=== PATIENT | female | born 2000 | race Caucasian/White ===

== ENCOUNTER 2020-04-18 19:05 | Emergency (ER) | payer BC ==
[2020-04-18 20:05] LABS: Absolute Lymphocytes (CBC) 2.8 K/uL (0.7-4.9); Basophils % 0.6 % (0-1.3); Hematocrit 36.5 % (36.0-45.0); Lymphocytes % 33.7 % (15.3-44.8); MPV 8.1 fL (7.6-11.3); RBC Red Blood Cell Count 4.46 M/uL (3.86-4.86)
[2020-04-18] MEDS ORDERED: ONDANSETRON 4 MG/2 ML VIAL ONE (20:13)
[2020-04-18] MEDS ORDERED: NA CHLORIDE 0.9% 1,000 ML ONE (20:13)
[2020-04-18 20:23] LABS: Albumin 3.8 g/dL (3.4-5.0); Bilirubin Direct 0.1 mg/dL (0-0.2); Bilirubin Total 0.3 mg/dL (0.2-1.0); Potassium 3.6 mmol/L (3.5-5.1); Protein, Total 7.4 g/dL (6.4-8.2)
[2020-04-18] MEDS ORDERED: KETOROLAC 30 MG/ML INJ ONE (20:29)
[2020-04-18 21:22] LABS: Urine Blood TRACE (NEG); Urine Glucose NEGATIVE (NEG); Urine Protein NEGATIVE (NEG); Urine Specific Gravity 1.025 (1.005-1.030)
--- NOTE | 2020-04-18 21:54 | ER ---
Nurse's Notes [facility] Name: Arianne Montanez Age: 20 yrs Sex: Female : 2000 Arrival Date: 04/18/2020 Time: 19:08 Bed 8 Private MD: Diagnosis: Nausea and vomiting;Headache Presentation: 04/18 19:28 Chief complaint: Patient states: N/V, MAYER, weakness, dizziness since yesterday. No known ll1 fever. Coronavirus screen: Client denies travel out of the [place] in the last 14 days. At this time, the client does not indicate any symptoms associated with coronavirus-19. Ebola Screen: Patient denies travel to an Ebola-affected area in the 21 days before illness onset. Initial Sepsis Screen: Does the patient meet any 2 criteria? No. Patient's initial sepsis screen is negative. Risk Assessment: Do you want to hurt yourself or someone else? Patient reports no desire to harm self or others. Onset of symptoms was April 17, 2020. 19:28 Method Of Arrival: Ambulatory ll1 19:28 Acuity: HENRI 3 ll1 21:53 Initial Sepsis Screen: Does the patient have a suspected source of infection? No. rv Patient's initial sepsis screen is negative. 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 - Social history:: Smoking status: Patient denies any tobacco usage or history of. Patient/guardian denies using alcohol, street drugs. Screenin:52 Abuse screen: Denies threats or abuse. Denies injuries from another. Nutritional rv screening: No deficits noted. Tuberculosis screening: No symptoms or risk factors identified. Fall Risk None identified. Assessment: 21:00 General: Appears comfortable, Behavior is calm, cooperative. rv 21:00 Pain: Complains of pain in back. Neuro: Level of Consciousness is awake, alert, obeys rv commands, Oriented to person, place, time, situation. Cardiovascular: Patient's skin is warm and dry. Respiratory: Airway is patent. GI: Abdomen is flat, non-distended, Reports nausea. Derm: Skin is intact. 21:51 Reassessment: still complaining of pain. updated on the test results. referred to Dr jeremy Dodd. new orders received. Morphine given as ordered. 22:30 Reassessment: Patient states feeling better. Patient states symptoms have improved. rv Pain: Denies pain. Neuro: Level of Consciousness is awake, alert, obeys commands, Oriented to person, place, time, situation. Respiratory: Airway is patent. Vital Signs: 19:28 BP 136 / 96; Pulse 82; Resp 17; Temp 98.7; Pulse Ox 96% ; Pain 7/10; ll1 20:55 BP 108 / 66; Pulse 68; Resp 18; Pulse Ox 100% on R/A; mg2 21:53 BP 119 / 76; Pulse 76; Resp 16; Pulse Ox 98% on R/A; rv 22:31 BP 110 / 70; Pulse 78; Resp 17; Temp 98.5; Pulse Ox 99% on R/A; rv ED Course: 19:08 Patient arrived in ED. cl3 19:30 Triage completed. ll1 19:32 Arm band placed on Patient placed in an exam room, on a stretcher. ll1 19:35 Rustam Dodd MD is Attending Physician. tw4 19:40 Darren Jordan RN is Primary Nurse. rv 19:55 Inserted saline lock: 20 gauge in left antecubital area, using aseptic technique. Blood rv collected. 19:55 Initial lab(s) drawn, by ne, sent to lab. rv 21:53 Patient has correct armband on for positive identification. Pulse ox on. NIBP on. rv 22:31 No provider procedures requiring assistance completed. IV discontinued, intact, rv bleeding controlled, No redness/swelling at site. Pressure dressing applied. Administered Medications: 20:05 Drug: NS 0.9% 1000 ml Route: IV; Rate: 1 bolus; Site: left antecubital; rv 21:50 Follow up: IV Status: Completed infusion; IV Intake: 1000ml rv 20:05 Drug: Zofran (Ondansetron) 4 mg Route: IVP; Site: left antecubital; rv 21:50 Follow up: Response: No adverse reaction rv 20:21 Drug: TORadol 30 mg Route: IVP; Site: left antecubital; rv 21:50 Follow up: Response: No adverse reaction; Pain is unchanged, physician notified rv 21:50 Drug: morphine 4 mg {Note: rass 0.} Route: IVP; Site: left antecubital; rv 22:30 Follow up: Response: No adverse reaction; Marked relief of symptoms; Pain is decreased; rv RASS: Alert and Calm (0) Intake: 21:50 IV: 1000ml; Total: 1000ml. rv Outcome: 21:53 Discharge ordered by . tw4 22:31 Discharged to home ambulatory. rv 22:31 Condition: improved 22:31 Discharge instructions given to patient, Instructed on discharge instructions, follow up and referral plans. medication usage, Demonstrated understanding of instructions, follow-up care, medications, Prescriptions given X 3. 22:31 Patient left the ED. rv Signatures: Rustam Dodd MD MD tw4 Levi Bolton, RN RN mg2 Darren Jordan RN RN rv Kathie Aquino cl3 Tera Aquino RN RN ll1
--- NOTE | 2020-04-18 21:54 | EDPHYS ---
Physician Documentation [facility] Name: Arianne Montanez Age: 20 yrs Sex: Female : 2000 Arrival Date: 04/18/2020 Time: 19:08 Bed 8 Private MD: ED Physician Rustam Dodd HPI: 04/19 06:36 This 20 yrs old Female presents to ER via Ambulatory with complaints of tw4 Nausea, Weakness. 06:36 The patient presents to the emergency department with nausea, vomiting. Onset: The tw4 symptoms/episode began/occurred today. Possible causes:. Severity of symptoms: At their worst the symptoms were moderate in the emergency department the symptoms are unchanged. The patient has not experienced similar symptoms in the past. 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 - Social history:: Smoking status: Patient denies any tobacco usage or history of. Patient/guardian denies using alcohol, street drugs. ROS: 04/19 06:36 Constitutional: Negative for fever, chills, and weight loss, Eyes: Negative for injury, tw4 pain, redness, and discharge, Cardiovascular: Negative for chest pain, palpitations, and edema, Respiratory: Negative for shortness of breath, cough, wheezing, and pleuritic chest pain, Back: Negative for injury and pain, MS/Extremity: Negative for injury and deformity, Skin: Negative for injury, rash, and discoloration, Neuro: Negative for headache, weakness, numbness, tingling, and seizure. Abdomen/GI: Positive for nausea and vomiting, nausea, vomiting, Negative for abdominal pain, diarrhea, constipation, abdominal cramps, abdominal distension, anorexia, dysphagia, hematemesis, black/tarry stool, rectal pain, rectal bleeding. Exam: 06:36 Constitutional: This is a well developed, well nourished patient who is awake, alert, tw4 and in no acute distress. Head/Face: Normocephalic, atraumatic. Chest/axilla: Normal chest wall appearance and motion. Nontender with no deformity. No lesions are appreciated. Cardiovascular: Regular rate and rhythm with a normal S1 and S2. No gallops, murmurs, or rubs. Normal PMI, no JVD. No pulse deficits. Respiratory: Lungs have equal breath sounds bilaterally, clear to auscultation and percussion. No rales, rhonchi or wheezes noted. No increased work of breathing, no retractions or nasal flaring. Abdomen/GI: Soft, non-tender, with normal bowel sounds. No distension or tympany. No guarding or rebound. No evidence of tenderness throughout. Skin: Warm, dry with normal turgor. Normal color with no rashes, no lesions, and no evidence of cellulitis. MS/ Extremity: Pulses equal, no cyanosis. Neurovascular intact. Full, normal range of motion. Neuro: Awake and alert, GCS 15, oriented to person, place, time, and situation. Cranial nerves II-XII grossly intact. Motor strength 5/5 in all extremities. Sensory grossly intact. Cerebellar exam normal. Normal gait. Vital Signs: 04/18 19:28 BP 136 / 96; Pulse 82; Resp 17; Temp 98.7; Pulse Ox 96% ; Pain 7/10; ll1 20:55 BP 108 / 66; Pulse 68; Resp 18; Pulse Ox 100% on R/A; mg2 21:53 BP 119 / 76; Pulse 76; Resp 16; Pulse Ox 98% on R/A; rv 22:31 BP 110 / 70; Pulse 78; Resp 17; Temp 98.5; Pulse Ox 99% on R/A; rv MDM: 19:35 Patient medically screened. tw4 04/19 06:36 Differential diagnosis: Nonspecific abd pain. Data reviewed: vital signs, nurses notes. tw4 Data reviewed: lab test result(s), cardiac enzymes, electrolytes, hepatic panel. Data interpreted: Pulse oximetry: Interpretation: normal. Counseling: I had a detailed discussion with the patient and/or guardian regarding: the historical points, exam findings, and any diagnostic results supporting the discharge/admit diagnosis. Medication response: Zofran relieved the patient's nausea. Response to treatment: and as a result, I will discharge patient. Special discussion: I discussed with the patient/guardian in detail that at this point there is no indication for admission to the hospital. It is understood, however, that if the symptoms persist or worsen the patient needs to return immediately for re-evaluation. 04/18 19:36 Order name: Basic Metabolic Panel; Complete Time: 21:50 04/18 21:50 Interpretation: Normal except: CL 109; GFR 87. 04/18 19:36 Order name: CBC with Diff; Complete Time: 21:50 04/18 21:50 Interpretation: Normal except: RDW 15.8. 04/18 19:36 Order name: Hepatic Function; Complete Time: 21:50 04/18 21:50 Interpretation: Normal except: GLOB 3.6. 04/18 19:36 Order name: Lipase; Complete Time: 21:50 04/18 21:50 Interpretation: Within normal limits: LIP 136. 04/18 20:01 Order name: Urine --Ancillary (enter results); Complete Time: 21:50 tt3 04/18 21:50 Interpretation: Within normal limits: URINE PREG NEG. 04/18 20:01 Order name: Urine Dipstick--Ancillary (enter results); Complete Time: 21:50 tt3 04/18 21:50 Interpretation: Normal except: UBLD TRACE. 04/18 19:36 Order name: IV Saline Lock; Complete Time: 20:09 04/18 19:36 Order name: Labs collected and sent; Complete Time: 20:09 04/18 19:36 Order name: Urine Dipstick-Ancillary (obtain specimen); Complete Time: 20:09 04/18 19:36 Order name: Urine Test (obtain specimen); Complete Time: 20:09 Administered Medications: 04/18 20:05 Drug: NS 0.9% 1000 ml Route: IV; Rate: 1 bolus; Site: left antecubital; rv 21:50 Follow up: IV Status: Completed infusion; IV Intake: 1000ml rv 20:05 Drug: Zofran (Ondansetron) 4 mg Route: IVP; Site: left antecubital; rv 21:50 Follow up: Response: No adverse reaction rv 20:21 Drug: TORadol 30 mg Route: IVP; Site: left antecubital; rv 21:50 Follow up: Response: No adverse reaction; Pain is unchanged, physician notified rv 21:50 Drug: morphine 4 mg {Note: rass 0.} Route: IVP; Site: left antecubital; rv 22:30 Follow up: Response: No adverse reaction; Marked relief of symptoms; Pain is decreased; rv RASS: Alert and Calm (0) Disposition: 04/18/20 21:53 Discharged to Home. Impression: Nausea and vomiting, Headache. - Condition is Stable. - Discharge Instructions: General Headache Without Cause, Pain Without a Known Cause, Weakness, Nausea and Vomiting, Adult, [id number], Migraine Headache, [id number]. - Prescriptions for Zofran 4 mg Oral Tablet - take 1 tablet by ORAL route every 12 hours As needed; 20 tablet. Fiorinal 50- 325-40 mg Oral Capsule - take 1 capsule by ORAL route every 4 hours As needed - not to exceed 6 capsules per day; 20 capsule. Ibuprofen 800 mg Oral Tablet - take 1 tablet by ORAL route every 8 hours As needed take with food; 30 tablet. - Medication Reconciliation Form, Thank You Letter, Antibiotic Education, Prescription Opioid Use form. - Follow up: Private Physician; When: Upon discharge from the Emergency Department; Reason: Recheck today's complaints, Continuance of care, Re-evaluation by your physician. - Problem is new. - Symptoms have improved. Signatures: Dispatcher [employer] EDPR Rustam Dodd MD MD tw4 Darren Jordan RN RN rv Tera Aquino RN RN ll1 Corrections: (The following items were deleted from the chart) 21:57 21:53 04/18/2020 21:53 Discharged to Home. Impression: Nausea and vomiting. Condition tw4 is Stable. Forms are Medication Reconciliation Form, Thank You Letter, Antibiotic Education, Prescription Opioid Use. Follow up: Private Physician; When: Upon discharge from the Emergency Department; Reason: Recheck today's complaints, Continuance of care, Re-evaluation by your physician. Problem is new. Symptoms have improved. tw4 22:31 21:57 04/18/2020 21:53 Discharged to Home. Impression: Nausea and vomiting; Headache. rv Condition is Stable. Discharge Instructions: Weakness, Nausea and Vomiting, Adult, [id number]. Prescriptions for Zofran 4 mg Oral Tablet - take 1 tablet by ORAL route every 12 hours As needed; 20 tablet. and Forms are Medication Reconciliation Form, Thank You Letter, Antibiotic Education, Prescription Opioid Use. Follow up: Private Physician; When: Upon discharge from the Emergency Department; Reason: Recheck today's complaints, Continuance of care, Re-evaluation by your physician. Problem is new. Symptoms have improved. tw4
[2020-04-18] MEDS ORDERED: MORPHINE 4 MG/ML SYR ONE (21:59)
[2020-04-18 22:58] VITALS: BP 110/70; TEMP 98.5; O2SAT 99
== END 2020-04-18 22:31 | disposition home or self-care (01) ==
LOC: ER 19:05
DX: R11.2 Nausea with vomiting, unspecified (principal); R51 Headache; Z88.0 Allergy status to penicillin; Z88.2 Allergy status to sulfonamides; Z88.3 Allergy status to other anti-infective agents
CPT/HCPCS: 96361; 85025; 80048; 36415; 81025; 80076; 81003; 83690; 96375; 96374; 99284; J7030; J2405

== ENCOUNTER 2020-09-27 02:02 | Emergency (ER) | payer BC ==
--- OUTSIDE RECORDS SUMMARY | 2020-09-27 02:06 | XMS REPORT | Continuity of Care Document ---
:[address] [facility] t Address [address] [place] [address] Care Team Providers Name Role Phone Asked, Pcp Primary Care Physician Unavailable Doctor Unassigned, Name Attending Clinician Unavailable Pob, Lab Main Attending Clinician Unavailable Sammy NORMAN Attending Clinician Payers Payer Name Policy Type Policy Number Effective Date Expiration Date S ource Problems Condition Condition Condition Status Onset Resolution Last Treating Co mments Source Name Details Category Date Date Treatment Clinician Date Colitis Colitis Problem [facility] Chronic Chronic Problem Active [facility] back pain back pain [facility] Depression Depression Problem [facility] Scoliosis Scoliosis Problem Active [facility] (and (and [facility] - kyphoscoli kyphoscoli Me moria osis), osis), l idiopathic idiopathic Ou tpati ent Clinics Migraine Migraine Problem Active [facility] headache headache [facility] without without [facility] aura aura l [facility] Acne Acne Problem Active [facility] vulgaris vulgaris [facility] High risk High risk Problem Active [facility] heterosexu heterosexu Joan kes - al al [facility] behavior behavior l [facility] Iron Iron Problem Active [facility] deficiency deficiency Joan kes - anemia, anemia, Memoria unspecifie unspecifie l d iron d iron Outpati deficiency deficiency en t anemia anemia Clinics type type Mixed Mixed Problem Active [facility] hyperlipid hyperlipid Joan kes - emia emia [facility] Allergies, Adverse Reactions, Alerts Allergy Allergy Status Severity Reaction(s) Onset Inactive Treating Comm ents Source Name Type Date Date Clinician Penicill DA Active [facility] [place] [facility] [place] [facility] [place] acetamin [facility] ophen 04-22 [facility] [place] predniso [facility] ne 04-22 [facility] [place] sulfamet [place] [facility] [place] [facility] hoxazole 04-22 [facility] [place] trimetho [facility] prim 04-22 [facility] [place] vancomyc DA Active [place] [facility] in 04-22 [facility] [place] Acetamin Propensi Active Hives [place] op[place] ty to 04-04 Methodi deine adverse 00:00: st reaction 00 s to drug Penicill DA Active [facility] ins 03-26 Clear 00:00: Rai 00 [facility] sulfamet DA Active [place] [facility] hoxazole 03-26 Clear 00:00: Rai 00 [facility] trimetho DA Active [place] [facility] prim 03-26 Clear 00:00: Rai 00 [facility] [place] [address] [facility] in 03-26 Clear 00:00: Rai 00 [facility] Vancomyc Propensi Active Hives Other [place] ty to 03-23 reaction( Methodi adverse 00:00: s): st reaction 00 Nausea s to and/or drug Vomiting Sulfamet Propensi Active Rash [place] hoxazole ty to 8-18 Methodi (Bulk) adverse 00:00: st reaction 00 s to drug No Known DA Active [facility] Allergie 5-19 [place] s 00:00: Orthope 00 dic Hospita l Penicill Propensi Active Hives, [place] in ty to Shortness Of 3-05 Meth rowena adverse Breath 00:00: st reaction 00 s to drug penicill Adverse Active anaphylaxis [facility] in Reaction [facility] Family History Family Member Diagnosis Comments Start Date Stop Date Source [facility] Social [facility] Social Habit Start Date Stop Date Quantity Comments Source Sex Assigned At [facility] ethodi Tobacco use and 2019-04-04 2019-04-04 Never used [facility] ethodist exposure 00:00:00 00:00:00 Alcohol intake 2019-04-04 2019-04-04 Current [facility] thodist 00:00:00 00:00:00 non-drinker of alcohol (finding) Smoking Status Start Date Stop Date Source Never smoker [place] [facility] t Medications Ordered Filled Start Stop Current Ordering Indication Dosage Frequency Signature Comments Components Source Medication Medication Date Date Medication? Clinician (SIG) Name Name Tamiflu Tamiflu Yes Luke [address] [facility] [address] 1-15 [facility] - 00:00: Memoria 00 [facility] diphenhydrA Yes 25mg QD Take 25 mg [facility] 9-07 by mouth Methodi (BENADRYL) 23:15: nightly as s t 25 mg 03 needed for tablet sleep. acetaminoph Yes 325mg Q6H Take 325 H [facility] 9-07 mg by Methodi (TYLENOL) 23:15: mouth st 325 MG 02 every 6 tablet (six) hours as needed for fever. Procedures This patient has no known procedures. Plan of Care Planned Activity Planned Date Details Comments Source Future Scheduled 2020-02-27 INFLUENZA VACCINE [facility] 00:00:00 [code = INFLUENZA VACCINE] Future Scheduled 2019 Screening for [facility] thodist Test 00:00:00 malignant neoplasm of cervix (procedure) [code = 600368696] Future Scheduled 2016-02-03 Hepatitis C [facility] hodist Test 00:00:00 screening (procedure) [code = 868386758] Future Scheduled 2014 CHLAMYDIA SCREENING [place] [facility] 00:00:00 [code = CHLAMYDIA SCREENING] Future Scheduled 2014 COVID-19 VACCINE (1 [place] [facility] 00:00:00 of 2) [code = COVID-19 VACCINE (1 of 2)] Encounters Start End Encounter Admission Attending Care Care Encounter Source Date/Time Date/Time Type Type Clinicians Facility Department ID 2020-09-26 2020-09-26 Orders Doctor ELLIOT [id number] 00:00:00 00:00:00 Only Unassigned, JERALD [id number] [facility] [id number] [id number] [facility] 2020-09-21 2020-09-21 Spanish Lecturer Vikash Valenzuela [facility] [id number] 11:52:07 12:07:07 Visit Lab Blair Dennis [id number] [place] 4.2.7.2.686 Professio [id number] [address] 2020-09-21 2020-09-21 Case Sammy VAGISSELLE [id number] 00:00:00 00:00:00 Management Elba Dennis [id number] [place] 4.2.7.2.686 Professio [id number] formerly [facility] [address] [facility] 2020-09-20 2020-09-20 Office Sammy VAGISSELLE [id number] 14:13:34 15:06:36 Visit Elba Dennis [id number] [place] 4.2.7.2.686 Professio [id number] formerly [facility] 134 [facility] 2019-08-12 2019-08-12 [facility] [id number] 13:22:00 13:22:00 [employer] [facility] ent [facility] 2019-02-26 2019-02-26 [facility] [id number] 10:00:00 10:00:00 [facility] ent [facility] 2019-01-14 2019-01-14 [facility] [id number] 10:00:00 10:00:00 t [employer] - VTM [facility] Outpati ent Clinics 2018-08-04 2018-08-04 [facility] [id number] 14:30:00 14:30:00 t [employer] - VTM [facility] Out[facility] ent Clinics 2018-03-26 2018-03-26 [facility] [id number] 13:45:00 13:45:00 t VendAsta s - VTM [facility] Out[facility] ent Clinics 2018-01-08 2018-01-08 [facility] [id number] 11:30:00 11:30:00 t VendAsta s - VTM [facility] Outpat[facility] ent Clinics 2017-11-25 2017-11-25 [facility] [id number] 13:00:00 13:00:00 t [employer] - VTM [facility] Outpat[facility] ent Clinics 2017-10-14 2017-10-14 [facility] [id number] 11:15:00 11:15:00 t [employer] - VTM [facility] Outpati ent Clinics 2017-10-14 2017-10-14 [facility] [id number] 09:22:00 09:22:00 t [facility] Outpati ent Clinics Results Test Description Test Time Test Comments Results Result Sour e Comments - DUP AB/PEL/SC/LTD 2019-06-24 Patient Name: 22:15:00 LUDWIG APONTE Unit No: [id number] EXAMS: CPT CODE: [id number] DUP AB/PEL/SC/LTD 36333 PROCEDURE: PELVIC ULTRASOUND INDICATION: Left lower quadrant pelvic pain. COMPARISON: 12/02/2018 pelvic ultrasound. TRANSABDOMINAL SCAN: Uterus measures 4.8 x 1.6 x 3.5 cm with obscured endometrial stripe. Neither ovary is visualized. No adnexal masses seen. No free pelvic fluid. TRANSVAGINAL SCAN: Transvaginal exam was performed for better visualization of the pelvic structures. The uterus measures 5.5 x 1.7 x 2.8 cm with endometrial stripe thickness of 0.4 cm. Left ovary appears normal with follicles and measures 1.8 x 2.1 x 1.5 cm. The right ovary appears normal with follicles and measures 3.1 x 2 x 2.1 cm. Expected low-resistance arterial waveforms are documented to each ovary. No adnexal masses are seen. No free pelvic fluid. IMPRESSION: Normal pelvic ultrasound. SL: SG-H at 2215 Reported and signed by: Rojas Galindo MD CC: Franco Swan MD Technologist: Inga Vega RDMS Probe: Trnscrbd D/ (2015) t.SDR.SG9 Orig Print D/T: S: 06/24/2019 (3020) [facility] NAME: FAYLUDWIG Radiology Department PHYS: Kenzie Banda ro [address] : 2000 AGE: 19 SEX: F [place] [address] LOC: MAGGI PHONE #: [phone] EXAM DATE: 06/24/2019 STATUS: REG ER FAX #: [phone] RAD NO: Page 1 Signed Report Patient Name: LUDWIG APONTE Unit No: [id number] EXAMS: CPT CODE: [id number] DUP AB/PEL/SC/LTD 32210 <Continued> [facility] NAME: FAYLUDWIG Radiology Department PHYS: Kenzie Banda ro [address] : 2000 AGE: 19 SEX: F [place] [address] LOC: MAGGI PHONE #: [phone] EXAM DATE: 06/24/2019 STATUS: REG ER FAX #: [phone] RAD NO: Page 2 Signed Report - US TRANSVAGINAL 2019-06-24 Patient Name: W/PELVIS 22:15:00 LUDWIG APONTE Unit No: [id number] EXAMS: CPT CODE: [id number] US TRANSVAGINAL W/PELVIS 93569 PROCEDURE: PELVIC ULTRASOUND INDICATION: Left lower quadrant pelvic pain. COMPARISON: 12/02/2018 pelvic ultrasound. TRANSABDOMINAL SCAN: Uterus measures 4.8 x 1.6 x 3.5 cm with obscured endometrial stripe. Neither ovary is visualized. No adnexal masses seen. No free pelvic fluid. TRANSVAGINAL SCAN: Transvaginal exam was performed for better visualization of the pelvic structures. The uterus measures 5.5 x 1.7 x 2.8 cm with endometrial stripe thickness of 0.4 cm. Left ovary appears normal with follicles and measures 1.8 x 2.1 x 1.5 cm. The right ovary appears normal with follicles and measures 3.1 x 2 x 2.1 cm. Expected low-resistance arterial waveforms are documented to each ovary. No adnexal masses are seen. No free pelvic fluid. IMPRESSION: Normal pelvic ultrasound. SL: SG-H at 2215 Reported and signed by: Rojas Galindo MD CC: Franco Swan MD Technologist: Inga Vega RDMS Probe: [id number] Trnscrbd D/ (2215) t.SDR.SG9 Orig Print D/T: S: 06/24/2019 (2218) [facility] NAME: XAVIERLUDWIG Radiology Department PHYS: Kenzie Banda [address] : 2000 AGE: 19 SEX: F [place], [place] [address] LOC: MAGGI PHONE #: [phone] EXAM DATE: 06/24/2019 STATUS: REG ER FAX #: [phone] RAD NO: Page 1 Signed Report Patient Name: LUDWIG APONTE Unit No: [id number] EXAMS: CPT CODE: [id number] US TRANSVAGINAL W/PELVIS 38160 <Continued> [facility] NAME: FAYLUDIWG Radiology Department PHYS: MARCELLA PerkinseverryKenzie Acosta ro [address] : 2000 AGE: 19 SEX: F [place] [address] LOC: MAGGI PHONE #: [phone] EXAM DATE: 06/24/2019 STATUS: REG ER FAX #: [phone] RAD NO: Page 2 Signed Report - US PELVIS 2019-06-24 Patient Name: COMPLETE 22:15:00 LUDWIG APONTE Unit No: [id number] EXAMS: CPT CODE: [id number] US PELVIS COMPLETE 80367 PROCEDURE: PELVIC ULTRASOUND INDICATION: Left lower quadrant pelvic pain. COMPARISON: 12/02/2018 pelvic ultrasound. TRANSABDOMINAL SCAN: Uterus measures 4.8 x 1.6 x 3.5 cm with obscured endometrial stripe. Neither ovary is visualized. No adnexal masses seen. No free pelvic fluid. TRANSVAGINAL SCAN: Transvaginal exam was performed for better visualization of the pelvic structures. The uterus measures 5.5 x 1.7 x 2.8 cm with endometrial stripe thickness of 0.4 cm. Left ovary appears normal with follicles and measures 1.8 x 2.1 x 1.5 cm. The right ovary appears normal with follicles and measures 3.1 x 2 x 2.1 cm. Expected low-resistance arterial waveforms are documented to each ovary. No adnexal masses are seen. No free pelvic fluid. IMPRESSION: Normal pelvic ultrasound. SL: SG-H at 2215 Reported and signed by: Rojas Galindo MD CC: Franco Swan MD Technologist: Inga Vega RDMS Probe: Trnscrbd D/ (2215) t.SG9 Orig Print D/T: S: 06/24/2019 (2218) [facility] NAME: LUDWIG APONTE Radiology Department PHYS: Kenzie Banda ro [address] : 2000 AGE: 19 SEX: F [place] [address] LOC: MAGGI PHONE #: [phone] EXAM DATE: 06/24/2019 STATUS: REG ER FAX #: [phone] RAD NO: Page 1 Signed Report Patient Name: LUDWIG APONTE Unit No: [id number] EXAMS: CPT CODE: [id number] US PELVIS COMPLETE 73214 <Continued> [facility] NAME: LUDWIG APONTE Radiology Department PHYS: Kenzie Banda [address] : 2000 AGE: 19 SEX: F [place], [place] [address] LOC: MAGGI PHONE #: [phone] EXAM DATE: 06/24/2019 STATUS: REG ER FAX #: [phone] RAD NO: Page 2 Signed Report DRUGS OF ABUSE SCREEN 2019-06-24 22:04:00 Test Item Value Reference Range Interpretation Comme nts UR COCAINE (test code = COCAU) NEGATIVE NEGATIVE DETECTION CUT OFF: 150 ng/mL UR CANNABINOIDS (test code = CANU) NEGATIVE NEGATIVE DETECTION CUT OFF: 50 ng/mL UR AMPHETAMINE (test code = AMPHU) NEGATIVE NEGATIVE DETECTION CUT OFF: 500 ng/mL UR BARBITURATE QUAL (test code = NEGATIVE NEGATIVE DETECTION CUT OFF: 200 ng/mL BARBQLU) UR BENZODIAZEPINE (test code = NEGATIVE NEGATIVE DETECTION CUT OFF: 150 ng/mL BENZU) UR OPIATES QUAL (test code = NEGATIVE NEGATIVE DETECTION CUT OFF: 100 ng/mL OPIAQLU) UR PHENCYCLIDINE (PCP) (test code = NEGATIVE NEGATIVE DETECTION CUT OFF: 25 ng/mL PHENCU) UA RFLX MICR CULT IF [id number] 21:57:00 Test Item Value Reference Range Interpretation Comments UA COLOR (test code = COLU) STRAW YELLOW UA APPEARANCE (test code = CLEAR CLEAR APPU) UA GLUCOSE DIPSTICK (test code NEGATIVE NEG = DGLUU) UA BILIRUBIN DIPSTICK (test NEGATIVE NEG code = BILU) UA KETONE DIPSTICK (test code NEGATIVE NEG = KETU) UA SPECIFIC GRAVITY (test code 1.009 1.001-1.035 N = SGU) UA BLOOD DIPSTICK (test code = NEG NEG SCOTT) UA PH DIPSTICK (test code = 6.0 5-9 ELIN) UA PROTEIN DIPSTICK (test code NEGATIVE NEG = PROU) UA UROBILINIOGEN DIPSTICK NEGATIVE mg/dL NEG (test code = URO) UA NITRITE DIPSTICK (test code NEG NEG = TAY) UA LEUKOCYTE ESTERASE DIPSTICK NEG NEG (test code = LEUU) UA WBC (test code = WBCU) 0-2 #/hpf NONE SEEN UA RBC (test code = RBCU) 0-2 #/hpf NONE SEEN UA EPITHELIAL CELLS (test code RARE #/HPF RARE-FEW = EPIU) UA BACTERIA (test code = BACU) RARE /HPF RARE-FEW Indication for culture: Suprapubic PainUR HCG [id number] 21:55:00 Test Item Value Reference Range Interpretation Comments UR HCG QUAL (test NEGATIVE 1. Very di lute urine code = HCGQLU) specimens, as indicated by a lowspecific g ravity, may not contain rep resentative levels ofhCG. 2 . False negative result s may occur when the levels of hCGare below the sensi tivity level of the test. If is still suspec daniel, a first morningurine sp ecimen should be colle cted 48 hours later and tested. COMPREHENSIVE METABOLIC [id number] 21:46:00 Test Item Value Reference Range Interpretation Comments SODIUM (test code = NA) 141 mEq/L 135-145 N POTASSIUM (test code = K) 3.5 mEq/L 3.5-5.0 N CHLORIDE (test code = CL) 105 mEq/L 100-115 N CARBON DIOXIDE (test code = CO2) 25 mEq/L 22-31 N ANION GAP (test code = GAP) 14.50 10-20 N GLUCOSE (test code = GLU) 78 mg/dL 65-110 N BLOOD UREA NITROGEN (test code = 13 mg/dL 7-18 N BUN) GLOMERULAR FILTRATION RATE (test 106 ml/min >60 N code = GFR) CREATININE (test code = CREAT) 0.7 mg/dL 0.5-1.0 N TOTAL PROTEIN (test code = PROT) 7.4 gm/dL 6.3-8.2 N ALBUMIN (test code = ALB) 4.3 gm/dL 3.4-4.8 N CALCIUM (test code = CA) 9.3 mg/dL 8.4-10.2 N BILIRUBIN TOTAL (test code = BILT) 0.2 mg/dL 0.2-1.0 N SGOT/AST (test code = AST) 14 units/L 15-37 L SGPT/ALT (test code = ALT) 23 units/L 12-78 N ALKALINE PHOSPHATASE TOTAL (test 82 units/L 46-116 N code = ALKP) CBC W/AUTO [id number] 21:41:00 Test Item Value Reference Range Interpretation Comments WHITE BLOOD CELL (test code = WBC) 10.8 K/mm3 6.6-12.1 N RED BLOOD CELL (test code = RBC) 4.59 M/mm3 3.45-5.01 N HEMOGLOBIN (test code = HGB) 12.2 g/dL 10.7-13.9 N HEMATOCRIT (test code = HCT) 39.8 % 32.1-42.1 N MEAN CELL VOLUME (test code = MCV) 87 fL 84.1-94.8 N MEAN CELL HGB (test code = MCH) 26.6 pg 27-35 L MEAN CELL HGB CONCETRATION (test 30.7 gm/dL 32.2-34.1 L code = MCHC) RED CELL DISTRIBUTION WIDTH (test 14.5 % 12.4-16.5 N code = RDW) PLATELET COUNT (test code = PLT) 449 K/mm3 133-385 H IMMATURE PLATELET FRACTION (test 0.0 % 0.0-10.8 N code = IPF) MEAN PLATELET VOLUME (test code = 9.7 fl 9.1-12.7 N MPV) NEUTROPHIL % (test code = NT%) 58.6 % 56.5-79.4 N LYMPHOCYTE % (test code = LY%) 32.1 % 14.3-34.3 N MONOCYTE % (test code = MO%) 7.0 % 5.1-10.4 N EOSINOPHIL % (test code = EO%) 1.6 % 0.1-3.0 N BASOPHIL % (test code = BA%) 0.5 % 0.1-1.0 N NEUTROPHIL # (test code = NT#) 6.4 K/mm3 LYMPHOCYTE # (test code = LY#) 3.5 K/mm3 MONOCYTE # (test code = MO#) 0.8 K/mm3 EOSINOPHIL # (test code = EO#) 0.17 K/mm3 BASOPHIL # (test code = BA#) 0.1 K/mm3 RBC MORPHOLOGY REQUIRED (test code NORMAL NORMAL = RBCM) PLATELET MORPHOLOGY REQUIRED (test NORMAL NORMAL code = PLTMR) - MRI LW JNT W/CONTRAST [id number] 13:59:00 Patient Name: LUDWIG APONTE Unit No: [id number] EXAMS: CPT CODE: [id number] MRI LW JNT W/[place] [address] RIGHT HIP ARTHROGRAM AND MARCAINE INJECTION DIAGNOSIS:No definite abnormality. COMMENT: COMPARISON: No prior exams available. After informed consent was obtained a single-contrast arthrogram was performed with equal parts Isovue-300 and dilute gadolinium by . 0.6 minutes of fluoroscopy time was utilized. The normal recesses were opacified. An AP radiograph was obtained. Subsequently 2 mL of 0.75% Marcaine was injected into the joint. No immediate complications were encountered. MRI OF THE RIGHT HIP POST ARTHROGRAPHY TECHNIQUE: Multiplanar multisequence MR images of the right hip were obtained following intra-articular administration of gadolinium contrast (see separately dictated procedure note for details). Images were then viewed on the PACS workstation in the axial, coronal and sagittal planes. COMPARISON: None available. FINDINGS: Bone: Marrow signal intensity is normal. Cartilage: No focal hyaline cartilage defects are seen. Labrum: The labrum is torn superiorly and anterior superiorly with a 2.2 cm ant erior superior labral cyst. Femoroacetabular Impingement Assessment: Alpha Angle (normal= <55 degrees) : 48 degrees Lateral Center Edge Angle (normal=25-39 degrees): 49 degrees Extraarticular Hip Impingement: No osseous proliferation of the anterior inferior iliac spine. Iliopsoas tendon is unremarkable. No evidence of ischiofemoral impingement. Tendons: Visualized gluteal and hamstring tendons are maintained.Bursitis: No significant trochanteric or iliopsoas bursitis. Muscles: Signal intensityand volume are preserved. [facility] NAME: LUDWIG APONTE [address] [facility] Main PHYS: Anibal Leslie : 2000 AGE: 19 SEX: F [place], [place] [address] LOC: YYULY PHONE #: [phone] EXAM DATE: 04/22/2019 STATUS: REG CLI FAX #: [phone] RAD #: D/C DT PAGE 1 Signed Report (CONTINUED) Patient Name: LUDWIG APONTE Unit No: [id number] EXAMS: CPT CODE: [id number] [place] LW JNT W/[place] [address] <Continued> Other: Partially visualized intrapelvic structures are unremarkable. IMPRESSION: Pincer-type impingement with labral tearing and a labral cyst at 1359 Reported and signed by: Elliott Rajput MD CC: Anibal Cruz MD; Pipo Hare MD Technologist: Joshua Novak(R) Transcribed D/ (9839) t.SHADIL [facility] NAME: LUDWIG APONTE [address] [facility] PHYS: Anibal Leslie : 2000 AGE: 19 SEX: F [place] [address] LOC: Y.RAD PHONE #: [phone] EXAM DATE: 04/22/2019 STATUS: REG CLI FAX #: [phone] RAD #: D/C DT PAGE 2 Signed Report Patient Name: LUDWIG APONTE Unit No: [id number] EXAMS: CPT CODE: [id number] MRI LW JNT W/[place] [address] <Continued> Orig Print D/T: S: 04/22/2019 (6920) [facility] NAME: LUDWIG APONTE [address] [facility] PHYS: Anibal Leslie : 2000 AGE: 19 SEX: F [place] [address] LOC: Y.RAD PHONE #: [phone] EXAM DATE: 04/22/2019 STATUS: REG CLI FAX #: [phone] RAD #: D/C DT PAGE 3 Signed Report- XR ARTHROGRAM HIP W/O AN RT+2019-04-22 13:59:00 Patient Name: LUDWIG APONTE Unit No: [id number] EXAMS: CPT CODE: [id number] XR ARTHROGRAM HIP W/O AN RT+ 27757 RIGHT HIP ARTHROGRAM AND MARCAINE INJECTION DIAGNOSIS:No definite abnormality. COMMENT: COMPARISON: No prior exams available. After informed consent was obtained a single-contrast arthrogram was performed with equal parts Isovue-300 and dilute gadolinium by . 0.6 minutes of fluoroscopy time was utilized. The normal recesses were opacified. An AP radiograph was obtained. Subsequently 2 mL of 0.75% Marcaine was injected into the joint. No immediate complications were encountered. MRI OF THE RIGHT HIP POST ARTHROGRAPHY TECHNIQUE: Multiplanar multisequence MR images of the right hip were obtained following intra- articular administration of gadolinium contrast (see separately dictated procedure note for details). Images were then viewed on the PACS workstation in the axial, coronal and sagittal planes. COMPARISON: None available. FINDINGS: Bone: Marrow signal intensity is normal. Cartilage: No focal hyaline cartilage defects are seen. Labrum: The labrum is torn superiorly and anterior superiorly with a 2.2 cm anterior superior labral cyst. Femoroacetabular Impingement Assessment: Alpha Angle (normal= <55 degrees) : 48 degrees Lateral Center Edge Angle (normal=25-39 degrees): 49 degrees Extraarticular Hip Impingement: No osseous proliferation of the anterior inferior iliac spine. Iliopsoas tendon is unremarkable. No evidence of ischiofemoral impingement. Tendons: Visualized gluteal and hamstring tendons are maintained.Bursitis: No significant trochanteric or iliopsoas bursitis. Muscles: Signal intensityand volume are preserved. [facility] NAME: LUDWIG APONTE [address] [facility] PHYS: Anibal Leslie : 2000 AGE: 19 SEX: F [place], [place] [address] LOC: Y.RAD PHONE #: [phone] EXAM DATE: 04/22/2019 STATUS: REG CLI FAX #: [phone] RAD #: D/C DT PAGE 1 Signed Report (CONTINUED) Patient Name: LUDWIG APONTE Unit No: [id number] EXAMS: CPT CODE: [id number] XR ARTHROGRAM HIP W/O AN RT+ 18858 <Continued> Other: Partially visualized intrapelvic structures are unremarkable. IMPRESSION: Pincer-type impingement with labral tearing and a labral cyst at 1359 Reported and signed by: Elliott Rajput MD CC: Anibal Cruz MD; Pipo Hare MD Technologist: Valencia Kan, RT.(R) Transcribed D/ (2923) t.SDR.JCL [facility] NAME: LUDWIG APONTE [address] [place] [address] PHYS: Anibal Leslie Sherie : 2000 AGE: 19 SEX: F [place] [address] LOC: Y.RAD PHONE #: [phone] EXAM DATE: 04/22/2019 STATUS: REG CLI FAX #: [phone] RAD #: D/C DT PAGE 2 Signed Report Patient Name: LUDWIG APONTE Unit No: [id number] EXAMS: CPT CODE: [id number] XR ARTHROGRAM HIP W/O AN RT+ 65038 <Continued> Orig Print D/T: S: 04/22/2019 (5598) [facility] NAME: LUDWIG APONTE [address] [place] [address] PHYS: Anibal Lesliesharondamar : 2000 AGE: 19 SEX: F [place] [address] LOC: Y.RAD PHONE #: [phone] EXAM DATE: 04/22/2019 STATUS: REG CLI FAX #: [phone] RAD #: D/C DT PAGE 3 Signed ReportAG HLA [id number] 17:10:00 Test Item Value Reference Range Interpretation Comments AG HLA B-27 Negative () HLA-B*27 Negati veB27 allele (test code = interpretation for all loci based HLAB27) on IMGT/HLAdata base version 3.35This test w as developed and its performance characteristics determined by [facility]. It diaz s not been cleared or approvedby [facility] Food and Drug Administration. HLA Lab CLIA ID Number [id number] test was performed using PCR (Polymerase ChainReaction)/ SSOP (Sequence Specific Oligon ucleotide Probes)techniqu e. SBT (Sequence Based Typing) a nd/or SSP(Sequence Specific Primer s) may be used as supplementalmet hods when necessary. Ple ase contact HLA CustomerService at if you have any questions. Director of HLA Laboratory Dr Brett Kaufman, PhDPerformed At: 2Q [facility] [id number] [place], [place] [id number] Angela Mcclure PhD Ph:[phone] - MRI L-SPINE W/O [id number] 08:48:00 Patient Name: LUDWIG APONTE Unit No: [id number] Report Has Been Amended EXAMS: CPT CODE: [id number] MRI L-SPINE W/O CONT 51097 Addendum -04/08/2019 SIGNED 04/08/2019 ADDENDUM: [id number] MRI/MRILSPNWO Addendum: MRI of the lumbar spine dated April 07, 2019 is reviewed. The SI joints are included on this examination. Both the right and left SI joints are normal in appearance. Also diagnosed #6 should read that there is a dextroscoliosis of the lower thoracic and proximal lumbar spine. at 0848 Reported and signed by: Angela Feliciano MD Report MRI OF THE LUMBAR SPINE: DIAGNOSIS: 1. At L1-2, no disc bulge or herniation. No central canal or fora itz stenosis. 2. 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 No central canal or foraminal stenosis. 3. 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 No central canal stenosis. No foraminal stenosis. 4. At L4-5, mild disc degeneration. Is a slight retrolisthesis of L4 and L5. No central canal or foraminal stenosis. 5.At L5-S1, no disc bulge or herniation. No central canal or foraminal stenosis. Mild bilateral facet arthropathy. 6. There is a dextroscoliosis of the proximal thoracic spine. 7. PARTIALLY VISUALIZED MULTISEPTATE CYST IS PRESENT ADJACENT TO THE ANTERIOR ASPECT OF THE RIGHT HIP SUGGESTIVE OF A PERILABRAL CYST POSSIBLY RELATED TO A RIGHT ACETABULAR LABRAL TEAR. THIS IS BEST SEEN ON AXIAL T2-WEIGHTED SEQUENCE IMAGES 45-48 45-48 45-48. THIS MAY BE FURTHER EVALUATED WITH MRI OF THE RIGHT HIP POST ARTHROGRAPHY IF CLINICALLY INDICATED. COMMENT: COMPARISON: No prior exams available. Sagittal T1, T2 and STIR and axial T1 and T2-weighted sequences are obtained of the lumbar spine. [facility] NAME: LUDWIG APONTE [address] [facility] PHYS: Deb Harding MD : 2000 AGE: 19 SEX: F [place] [address] LOC: Y.510 A PHONE #: [phone] EXAM DATE: 04/06/2019 STATUS: DIS IN FAX #: [phone] RAD #: D/C DT 04/07/2019 PAGE 1 Signed Report (CONTINUED) Patient Name: LUDWIG APONTE Unit No: [id number] Report Has Been Amended EXAMS: CPT CODE: [id number] MRI L-SPINE W/O CONT 46885 <Continued> The lumbar vertebrae are within normal limits in signal. The findings are as above. The conus is in the expected location. at 0953 Reported and signed by: Angela Feliciano MD CC: Anibal Cruz MD; Deb Kennedy MD; Pipo Hare MD Technologist: Matthias NovakTJaycee(R) Transcribed D/ (0953) [email or web address] [facility] NAME: LUDWIG APONTE [address] [facility] PHYS: Deb Harding MD : 2000 AGE: 19 SEX: F [place] [address] LOC: Y.510 A PHONE #: [phone] EXAM DATE: 04/06/2019 STATUS: DIS IN FAX #: [phone] RAD #: D/C DT 04/07/2019 PAGE 2 Signed Report Patient Name: LUDWIG APONTE UnitNo: [id number] Report Has Been Amended EXAMS: CPT CODE: [id number] MRI L-SPINE W/O CONT 29117 <Continued> Orig Print D/T: S: 04/07/2019 (1106) [facility] NAME: LUDWIG APONTE [facility] PHYS: Deb Harding MD : 2000 AGE: 19 SEX: F [place] [address] LOC: Y.510 A PHONE #: [phone] EXAM DATE: 04/06/2019 STATUS: DIS IN FAX #: [phone] RAD #: D/C DT 04/07/2019 PAGE 3 Signed Report- XR PELVIS 1/2 [id number] 13:41:00 Patient Name: LUDWIG APONTE Unit No: [id number] EXAMS: CPT CODE: [id number] XR PELVIS 1/2 VIEWS 92997 IMAGES PROVIDED: 1 FINDINGS: No acute fracture or malalignment. Hip joints are normal. The sacroiliac joints are within normal limits. No osseous erosion is visualized. Bone mineralization is within normal limits. Soft tissues are unremarkable. IMPRESSION: No evidence of sacroiliitis. at 1341 Reported and signed by: Awais Kennedy M.D. CC: Anibal Cruz MD; Deb Kennedy MD; Pipo Hare MD Technologist: AILEEN ORDOÑEZ. RT(R) Transcribed D/ (7441) ThuanJ [facility] NAME: LUDWIG APONTE [address] [facility] PHYS: Deb Harding MD : 2000 AGE: 19 SEX:F [place] [address] LOC: Y.510 A PHONE #: [phone] EXAM DATE: 04/06/2019 STATUS: DIS IN FAX #: [phone] RAD #: D/C DT 04/07/2019 PAGE 1 Signed Report Patient Name: LUDWIG APONTE Unit No: [id number] EXAMS: CPT CODE: [id number] XR PELVIS 1/2 VIEWS 84583 <Continued> Orig Print D/T: S: 04/07/2019 (1430) [facility] NAME: LUDWIG APONTE [address] [facility] PHYS: Deb Harding MD : 2000 AGE: 19 SEX: F [place], [place] [address] LOC: Y.510 A PHONE #: [phone] EXAM DATE: 04/06/2019 STATUS: DIS IN FAX #: [phone] RAD #: D/C DT 04/07/2019 PAGE 2 Signed Report- MRI L-SPINE W/O [id number] 09:53:00 Patient Name: LUDWIG APONTE Unit No: [id number] EXAMS: CPT CODE: [id number] MRI L-SPINE W/O CONT 54206 MRI OF THE LUMBAR SPINE: DIAGNOSIS: 1. At L1-2, no disc bulge or herniation. No central canal or foraminal stenosis. 2. 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 No central canal or foraminal stenosis. 3. 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 No central canal stenosis. No foraminal stenosis. 4. At L4-5, mild disc degeneration. Is a slight retrolisthesis of L4 and L5. No central canal or foraminal stenosis. 5. At L5-S1, no disc bulge or herniation. No central canal or foraminal stenosis. Mild bilateral facet arthropathy. 6. There is a dextroscoliosis of the proximal thoracic spine. 7. PARTIALLY VISUALIZED MULTISEPTATECYST IS PRESENT ADJACENT TO THE ANTERIOR ASPECT OF THE RIGHT HIP SUGGESTIVE OF A PERILABRAL CYST POSSIBLY RELATED TO A RIGHT ACETABULAR LABRAL TEAR. THIS IS BEST SEEN ON AXIAL T2-WEIGHTED SEQUENCE IMAGES 45-48 45-48 45-48. THIS MAY BE FURTHER EVALUATED WITH MRI OF THE RIGHT HIP POST ARTHROGRAPHY IF CLINICALLY INDICATED. COMMENT: COMPARISON: No prior exams available. Sagittal T1, T2 and STIR and axial T1 and T2-weighted sequences are obtained of the lumbar spine. The lumbar vertebrae are within normal limits in signal. The findings are as above. The conus is in the expected location. at 0953 Reported and signed by: Angela Feliciano MD CC: Anibal Cruz MD; Deb Kennedy MD; Pipo Hare MD Technologist: Joshua Novak(R) Transcribed D/ (0953) ParulGVG [facility] NAME: LUDWIG APONTE [address] [place] [address] PHYS: Deb Harding MD : 2000 AGE: 19 SEX: F [place] [address] ACCT NO: [id number] LOC: Y.510 A PHONE #: [phone] EXAM DATE: 04/06/2019 STATUS: ADM IN FAX #: [phone] RAD #: D/C DT PAGE 1 Signed Report Patient Name: LUDWIG APONTE Unit No: [id number] EXAMS: CPT CODE: [id number] MRI L-SPINE W/O CONT 47807 <Continued> Orig Print D/T: S: 04/07/2019 (1106) [facility] NAME: LUDWIG APONTE [address] [place] [address] PHYS: Deb Harding MD : 2000 AGE: 19 SEX: F [place] [address] LOC: Y.510 A PHONE #:[phone] EXAM DATE: 04/06/2019 STATUS: ADM IN FAX #: [phone] RAD #: D/C DT PAGE 2 Signed Report- MRI LW JNT W WO CONT [id number] 14:25:00 Patient Name: LUDWIG APONTE Unit No: [id number] EXAMS: CPT CODE: [id number] [place] [address] TECHNIQUE: Multiplanar multisequence images of the right knee were obtained without the administration of intravenous contrast. COMPARISON STUDY: CT dated 03/16/2014 FINDINGS: Postoperative changes are demonstrated about the proximal right tibia with hyperintense tracts from previously removed hardware. Subcutaneousedema anterior to the tibial tuberosity is nonspecific. Small amount of fluid is present as well. No organized abscess is identified. No osseous findings are seen to suggest osteomyelitis. No definite meniscal tear. ACL and PCL are intact. Collateral ligaments are maintained. Extensor mechanism is within normal limits. No high-grade cartilage loss. No significantjoint effusion. IMPRESSION: Postoperative changes involving the pr oximal tibia with nonspecific edema and a small amount of fluid anterior to the tibial tuberosity. This is nonspecific and may be postoperative. Cellulitis is not excluded. No MR findings of osteomyelitis visualized. at 6615 Reported and signed by: Awais Kennedy M.D. CC: Anibal Cruz MD; Pipo Cisneros MD Technologist: RIZWAN ADAMS RT(R) Transcribed D/ (7333) ParulVinod [facility] NAME: LUDWIG APONTE [address] [place] [address] PHYS: Anibal Leslie : 2000 AGE: 19 SEX: F [place] [address] LOC: Y.510 A PHONE #: [phone] EXAM DATE: 04/06/2019 STATUS: ADM IN FAX #: [phone] RAD #: D/C DT PAGE 1 Signed Report Patient Name: LUDWIG APONTE Unit No: [id number] EXAMS: CPT CODE: [id number] [place] [address] <Continued> Orig Print D/T: S: 04/06/2019 (6186) [facility] NAME: LUDWIG APONTE [address] [place] [address] PHYS: MARLENY CruzAnibal Rehman : 2000 AGE: 19 SEX: F [place] [address] LOC: Y.510 A PHONE #: [phone] EXAM DATE: 04/06/2019 STATUS: ADM IN FAX #: [phone] RAD #: D/C DT PAGE 2 Signed ReportBLOOD UREA [id number] 10:31:00 Test Item Value Reference Range Interpretation Comments BLOOD UREA NITROGEN (test code = BUN) 7 mg/dL 7-18 N CREATININE W ESTIMATED [id number] 10:31:00 Test Item Value Reference Range Interpretation Comments GLOMERULAR FILTRATION 105.6 >60 Unit o f measure: RATE (test code = GFR) mL/mi n/1.73 [id number] Range:Healthy A dults >90 mL/min/1.73 m2 For Chronic Kidney Disease: St age II Mild Dec rease in GFR 6 0-90 Stage III Moderate Decrea se in GFR 30-59 Stage IV Se eve Decrease in GFR 15-29 Stage V Kidney Failur e <15 CREATININE (test code = 0.70 mg/dL 0.55-1.30 N CREAT) SYNOVIAL FLD CELL [id number] 07:34:00 Test Item Value Reference Range Interpretation Comments SYNOVIAL FLD COLOR (test code = BLOODY () COLSY) SYNOVIAL FLD APPEARANCE (test code BLOODY () = APPSY) SYNOVIAL FLD WBC (test code = 0 /mm3 >0 WBCSY) SYNOVIAL FLD RBC (test code = 05553 /mm3 >0 RBCSY) SYNOVIAL FLD CELL CT/[id number] 13:25:00 Test Item Value Reference Range Interpretation Comments SYNOVIAL FLD COLOR (test code = () COLSY) SYNOVIAL FLD APPEARANCE (test code () = APPSY) SYNOVIAL FLD WBC (test code = 0 /mm3 >0 WBCSY) SYNOVIAL FLD RBC (test code = 95438 /mm3 >0 RBCSY) SYNOVIAL FLD [id number] 13:24:00 Test Item Value Reference Range Interpretation Comments SYNOVIAL FLD COLOR (test code = COLSY) BLOODY SYNOVIAL FLD [id number] 13:24:00 Test Item Value Reference Range Interpretation Comments SYNOVIAL FLD APPEARANCE (test code = BLOODY APPSY) SYNOVIAL FLD [id number] 13:24:00 Test Item Value Reference Range Interpretation Comments SYNOVIAL FLD WBC (test code = WBCSY) 0 /mm3 >0 SYNOVIAL FLD [id number] 13:24:00 Test Item Value Reference Range Interpretation Comments SYNOVIAL FLD RBC (test code = 18671 /mm3 >0 RBCSY) SED [id number] 12:17:00 Test Item Value Reference Range Interpretation Comments SED RATE (test code = SEDW) 1 mm/hr 0-20 SED [id number] 12:17:00 Test Item Value Reference Range Interpretation Comments SED RATE (test code = SEDW) 1 mm/hr 0-20 N C REACTIVE [id number] 11:23:00 Test Item Value Reference Range Interpretation Comments C REACTIVE PROTEIN (test code = < 0.2 mg/dL 0.6-1.2 L CRP) C REACTIVE [id number] 11:23:00 Test Item Value Reference Range Interpretation Comments C REACTIVE PROTEIN (test code = <0.2 mg/dL 0.6-1.2 L CRP) - US PELVIS [id number] 11:44:00 Patient Name: LUDWIG PAONTE Unit No: [id number] EXAMS: CPT CODE: [id number] US PELVIS COMPLETE 39807 PELVIC ULTRASOUND, 12/02/2018: COMPARISON: October 14, 2017 CLINICAL HISTORY: Dysf unctional uterine bleeding TECHNIQUE: Transabdominal and endovaginal scanning was performed.FINDINGS: The uterus measures 5.3 x 2.1 x 3.0 cm. The endometrial stripe measured 7 mm. The endometrium is dynamic containing a probable blood clot. Endometrium is not hypervascular. No definiteuterine fibroids were seen. The right ovary measures 4.0 x 1.9 x 3.0 cm and contains several small subcentimeter follicles. The left ovary measures 3.3 x 1.8 x 2.0 cm and contains small subcentimeter follicles. Doppler flow is demonstrated in both ovaries. No free pelvic fluid. CONCLUSION: Presumed blood clot within the endometrium as described. at 1144 Reported and signed by: Johs Zapien MD CC: Elliot Malik III, MD Technologist: Sari Mcgninis RDMS Probe: Trnscrbd D/ (1144) [email or web address] Orig Print D/T: S: 12/02/2018 (4026) [facility] [place] NAME: LUDWIG APONTE Radiology Department PHYS: Elliot Morales III, MD [address] : 2000 AGE: 18 SEX: [place], [place] [address] LOC: EdwardRAD PHONE #: [phone] EXAM DATE: 12/02/2018 STATUS: REG CLI FAX #: [phone] RAD NO: Page 1 Signed Report Patient Name: LUDWIG APONTE Unit No: [id number] EXAMS: CPT CODE: [id number] US PELVI S COMPLETE 31504 <Continued> [facility] NAME: LUDWIG APONTE Radiology Department PHYS: Elliot Morales III, MD [address] : 2000 AGE: 18 SEX: F [place] [address] : EdwardRAD PHONE #: [phone] EXAM DATE: 12/02/2018 STATUS: REG CLI FAX #: [phone] RAD NO: Page 2 Signed Report- US TRANSVAGINAL [id number] 11:44:00 Patient Name: LUDWIG APONTE Unit No: [id number] EXAMS: CPT CODE: [id number] US TRANSVAGINAL W/PELVIS 61631 PELVIC ULTRASOUND, 12/02/2018: COMPARISON: October 14, 2017 CLINICAL HISTORY: Dysf unctional uterine bleeding TECHNIQUE: Transabdominal and endovaginal scanning was performed.FINDINGS: The uterus measures 5.3 x 2.1 x 3.0 cm. The endometrial stripe measured 7 mm. The endometrium is dynamic containing a probable blood clot. Endometrium is not hypervascular. No definiteuterine fibroids were seen. The right ovary measures 4.0 x 1.9 x 3.0 cm and contains several small subcentimeter follicles. The left ovary measures 3.3 x 1.8 x 2.0 cm and contains small subcentimeter follicles. Doppler flow is demonstrated in both ovaries. No free pelvic fluid. CONCLUSION: Presumed blood clot within the endometrium as described. at 1144 Reported and signed by: Josh Zapien MD CC: Elliot Malik III, MD Technologist: Sari Mcginnis, MS Probe: [id number] Trnscrbd D/ (1144) t.[email or web address] Orig Print D/T: S: 12/02/2018 (1148) [facility] NAME: LUDWIG APONTE Radiology Department PHYS: Elliot Morales III, MD [address] : 2000 AGE: 18 SEX: F [place] [address] LOC: F.RAD PHONE #: [phone] EXAM DATE: 12/02/2018 STATUS: REG CLI FAX #: [phone] RAD NO: Page 1 Signed Report Patient Name: LUDWIG APONTE Unit No: [id number] EXAMS: CPT CODE: [id number] US TRANS VAGINAL W/PELVIS 25891 <Continued> [facility] NAME: SEVENSRINIVASANLUDWIG Radiology Department PHYS: Elliot Morales III, MD [address] : 2000 AGE: 18 SEX: F [place], [place] [address] : [place].RAD PHONE #: [phone] EXAM DATE: 12/02/2018 STATUS: REG CLI FAX #: [phone] RAD NO: Page 2 Signed Report
[2020-09-27] MEDS ORDERED: ONDANSETRON 4 MG/2 ML VIAL ONE ×2 (03:14→03:57)
[2020-09-27] MEDS ORDERED: FENTANYL CITR 100 MCG/2 ML ONE (03:14)
[2020-09-27 03:26] LABS: Absolute Lymphocytes (CBC) 0.9 K/uL (0.7-4.9); Basophils % 0.1 % (0-1.3); Hematocrit 37.9 % (36.0-45.0); Lymphocytes % 8.1 % (15.3-44.8); MPV 8.5 fL (7.6-11.3); RBC Red Blood Cell Count 4.57 M/uL (3.86-4.86)
[2020-09-27 03:36] LABS: ALT/SGPT 26 U/L (12-78); AST/SGOT 16 U/L (15-37); Alkaline Phosphatase 82 U/L (45-117); BUN Blood Urea Nitrogen 13 mg/dL (7-18); Bicarbonate 26 mmol/L (21-32); Bilirubin Direct < 0.1 mg/dL (0-0.2); Bilirubin Total 0.3 mg/dL (0.2-1.0); Glucose Level 98 mg/dL (74-106); Lipase 112 U/L (73-393); Potassium 3.8 mmol/L (3.5-5.1); Protein, Total 7.3 g/dL (6.4-8.2); Sodium Level 142 mmol/L (136-145)
[2020-09-27 04:49] LABS: Urine Blood NEGATIVE (NEG); Urine Glucose NEGATIVE (NEG); Urine Protein NEGATIVE (NEG); Urine Specific Gravity >1.030 (1.005-1.030); Urine pH 5.5 (5.0-7.0)
[2020-09-27] MEDS ORDERED: KETOROLAC 30 MG/ML INJ ONE (06:18)
--- NOTE | 2020-09-27 06:51 | EDPHYS ---
Physician Documentation [facility] Name: Arianne Montanez Age: 20 yrs Sex: Female : 2000 Arrival Date: 09/27/2020 Time: 02:05 Bed 13 Private MD: CONCEPCIÓN Physician Lopez Mullins HPI: 09/27 02:43 This 20 yrs old Female presents to ER via Ambulatory with complaints of efrain Abdominal Pain, Nausea. 02:43 The patient presents to the emergency department with nausea, vomiting, abdominal pain, efrain of the right lower quadrant and left lower quadrant. Onset: The symptoms/episode began/occurred this morning. Possible causes: unknown. The symptoms are aggravated by nothing. The symptoms are alleviated by nothing. Severity of symptoms: At their worst the symptoms were mild moderate in the emergency department the symptoms are unchanged. The patient has not experienced similar symptoms in the past. 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 Last sf sexual activity 09/25/2020 Historical: - Allergies: 02:16 PENICILLINS; sg 02:16 Prednisone; sg 02:16 Tylenol; sg 02:16 Tylenol-Codeine #3; sg 02:16 Sulfa (Sulfonamide Antibiotics); sg 02:16 Vancomycin; sg - Home Meds: 03:08 Vitamin Oral tab 1 tab once daily [Active]; sf - PMHx: 02:16 Depression/Anxiety; Migraines; sg - PSHx: 02:16 Tonsillectomy; Ear Tubes; sg - Immunization history:: Adult Immunizations. - Social history:: Smoking status: Patient denies any tobacco usage or history of. Patient/guardian denies using alcohol, street drugs, IV drugs. ROS: 02:45 Constitutional: Negative for fever, chills, and weight loss, Eyes: Negative for injury, efrain pain, redness, and discharge, ENT: Negative for injury, pain, and discharge, Neck: Negative for injury, pain, and swelling, Cardiovascular: Negative for chest pain, palpitations, and edema, Respiratory: Negative for shortness of breath, cough, wheezing, and pleuritic chest pain, Back: Negative for injury and pain, : Negative for injury, bleeding, discharge, and swelling, MS/Extremity: Negative for injury and deformity, Skin: Negative for injury, rash, and discoloration, Neuro: Negative for headache, weakness, numbness, tingling, and seizure, Psych: Negative for depression, anxiety, suicide ideation, homicidal ideation, and hallucinations, Allergy/Immunology: Negative for hives, rash, and allergies, Endocrine: Negative for neck swelling, polydipsia, polyuria, polyphagia, and marked weight changes, Hematologic/Lymphatic: Negative for swollen nodes, abnormal bleeding, and unusual bruising. 02:45 Abdomen/GI: Positive for abdominal pain, nausea and vomiting, abdominal cramps, of the right lower quadrant and left lower quadrant. Exam: 02:45 Constitutional: This is a well developed, well nourished patient who is awake, alert, efrain and in no acute distress. Head/Face: Normocephalic, atraumatic. Eyes: Pupils equal round and reactive to light, extra-ocular motions intact. Lids and lashes normal. Conjunctiva and sclera are non-icteric and not injected. Cornea within normal limits. Periorbital areas with no swelling, redness, or edema. ENT: Nares patent. No nasal discharge, no septal abnormalities noted. Tympanic membranes are normal and external auditory canals are clear. Oropharynx with no redness, swelling, or masses, exudates, or evidence of obstruction, uvula midline. Mucous membranes moist. Neck: Trachea midline, no thyromegaly or masses palpated, and no cervical lymphadenopathy. Supple, full range of motion without nuchal rigidity, or vertebral point tenderness. No Meningismus. Chest/axilla: Normal chest wall appearance and motion. Nontender with no deformity. No lesions are appreciated. Cardiovascular: Regular rate and rhythm with a normal S1 and S2. No gallops, murmurs, or rubs. Normal PMI, no JVD. No pulse deficits. Respiratory: Lungs have equal breath sounds bilaterally, clear to auscultation and percussion. No rales, rhonchi or wheezes noted. No increased work of breathing, no retractions or nasal flaring. Back: No spinal tenderness. No costovertebral tenderness. Full range of motion. Skin: Warm, dry with normal turgor. Normal color with no rashes, no lesions, and no evidence of cellulitis. MS/ Extremity: Pulses equal, no cyanosis. Neurovascular intact. Full, normal range of motion. Neuro: Awake and alert, GCS 15, oriented to person, place, time, and situation. Cranial nerves II-XII grossly intact. Motor strength 5/5 in all extremities. Sensory grossly intact. Cerebellar exam normal. Normal gait. Psych: Awake, alert, with orientation to person, place and time. Behavior, mood, and affect are within normal limits. 02:45 Abdomen/GI: Inspection: abdomen appears normal, Bowel sounds: normal, Palpation: moderate abdominal tenderness, in the right lower quadrant and left lower quadrant, Liver: no appreciated palpable abnormalities, Hernia: not appreciated. Vital Signs: 02:13 BP 138 / 93; Pulse 112; Resp 16; Temp 99.2(O); Pulse Ox 100% on R/A; Pain 7/10; sg 02:30 BP 107 / 73; Pulse 107; Resp 16; Pulse Ox 98% ; sf 03:00 BP 108 / 64; Pulse 104; Resp 16; Pulse Ox 96% ; sf 03:00 Pain 8/10; sf 03:30 BP 166 / 68; Pulse 104; Resp 16; Pulse Ox 96% ; sf 03:40 Pain 5/10; sf 04:00 BP 102 / 65; Pulse 94; Resp 16; Pulse Ox 98% ; sf 04:10 Pain 2/10; sf 04:30 BP 104 / 63; Pulse 98; Resp 16; Pulse Ox 97% ; sf 05:00 BP 117 / 78; Pulse 104; Resp 16; Pulse Ox 97% ; sf 06:00 BP 109 / 55; Pulse 100; Resp 16; Pulse Ox 99% ; Pain 7/10; sf 06:59 Pain 5/10; sf 08:00 BP 115 / 69; Pulse 95; Resp 17; Pulse Ox 98% ; bp MDM: 02:16 Patient medically screened. efrain 02:48 Differential diagnosis: Nonspecific abd pain, pancreatitis, diverticulitis, efrain appendicitis, Dysmenorrhea, Ectopic , non-specific abd pain, Ovarian Torsion, Pelvic Inflammatory Disease, Ureterolithiasis, urinary tract infection. Data reviewed: vital signs, nurses notes, lab test result(s), radiologic studies, CT scan. 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 Counseling: I had a detailed discussion with the patient and/or guardian regarding: the historical points, exam findings, and any diagnostic results supporting the discharge/admit diagnosis, lab results. 09/27 02:39 Order name: Urine Dipstick--Ancillary (enter results); Complete Time: 04:53 tt3 09/27 02:39 Order name: Urine --Ancillary (enter results); Complete Time: 04:53 tt3 09/27 02:40 Order name: Basic Metabolic Panel; Complete Time: 03:42 [facility] 09/27 02:40 Order name: CBC with Diff; Complete Time: 03:34 [facility] 09/27 02:40 Order name: Hepatic Function; Complete Time: 03:42 [facility] 09/27 02:40 Order name: Lipase; Complete Time: 03:42 [facility] 09/27 02:40 Order name: CT Abd/Pelvis - PO and IV Contrast [facility] 09/27 02:39 Order name: Urine Dipstick-Ancillary (obtain specimen); Complete Time: 02:39 tt3 09/27 02:39 Order name: Urine Test (obtain specimen); Complete Time: 02:39 tt3 09/27 02:40 Order name: IV Saline Lock; Complete Time: 03:14 [facility] 09/27 02:40 Order name: Labs collected and sent; Complete Time: 03:14 [facility] 09/27 02:40 Order name: Urine Dipstick-Ancillary (obtain specimen); Complete Time: 02:47 [facility] 09/27 02:40 Order name: Urine Test (obtain specimen); Complete Time: 02:46 [facility] Administered Medications: 03:00 Drug: Zofran (Ondansetron) 4 mg Route: IVP; Site: right antecubital; sf 03:41 Follow up: Response: No adverse reaction; Nausea unchanged sf 03:00 Drug: fentaNYL (PF) 25 mcg Route: IVP; Site: right antecubital; sf 03:42 Follow up: Response: No adverse reaction; Pain is decreased sf 03:47 Drug: fentaNYL (PF) 25 mcg Route: IVP; Site: right antecubital; sf 04:10 Follow up: Response: No adverse reaction; Pain is decreased sf 03:47 Drug: Zofran (Ondansetron) 4 mg Route: IVP; Site: right antecubital; sf 04:09 Follow up: Response: No adverse reaction; Nausea is decreased sf 06:03 Drug: TORadol 30 mg Route: IVP; Site: right antecubital; sf 07:00 Follow up: Response: No adverse reaction; Pain is decreased sf 06:57 Drug: NS 0.9% 1000 ml Route: IV; Rate: 1 bolus; Site: right antecubital; sf 08:09 Follow up: IV Status: Completed infusion; IV Intake: 1000ml bp 06:58 Drug: Cipro 400 mg Volume: 200 ml; Route: IVPB; Infused Over: 60 mins; Site: right sf antecubital; 08:09 Follow up: IV Status: Completed infusion; IV Intake: 200ml bp 06:59 Drug: Flagyl 500 mg Route: PO; sf 08:09 Follow up: Response: No adverse reaction bp Disposition: 09/27/20 06:50 Discharged to Home. Impression: Abdominal tenderness, Nausea, Ileus, unspecified - ENTERITIS. - Condition is Stable. - Discharge Instructions: Abdominal Pain, Adult, Nausea, Adult, Ileus, Abdominal Pain, Adult, [id number]. - Prescriptions for Bentyl 20 mg Oral Tablet - take 1 tablet by ORAL route every 6 hours As needed; 20 tablet. Zofran 4 mg Oral Tablet - take 1 tablet by ORAL route every 12 hours As needed; 20 tablet. Cipro 250 mg Oral Tablet - take 1 tablet by ORAL route every 12 hours; 14 tablet. Flagyl 500 mg Oral Tablet - take 1 tablet by ORAL route every 12 hours for 7 days; 14 tablet. - Medication Reconciliation Form, Thank You Letter, Antibiotic Education, Prescription Opioid Use, Work release form form. - Follow up: Private Physician; When: 2 - 3 days; Reason: Recheck today's complaints, Continuance of care, Re-evaluation by your physician. Follow up: Blair Carroll MD; When: 2 - 3 days; Reason: Recheck today's complaints, Re-evaluation by your physician. - Problem is new. - Symptoms have improved. Signatures: Dispatcher [employer] EDMS Rojas Rivera RN RN sg Anderson, Corey, MD MD cha Peltier, Brian, RN RN bp Flores, Laith tt3 Rojas Caballero RN RN sf Corrections: (The following items were deleted from the chart) 08:10 06:50 09/27/2020 06:50 Discharged to Home. Impression: Abdominal tenderness; Nausea; bp Ileus, unspecified - ENTERITIS. Condition is Stable. Discharge Instructions: Abdominal Pain, Adult, Nausea, Adult, Abdominal Pain, Adult, [id number]. Prescriptions for Bentyl 20 mg Oral Tablet - take 1 tablet by ORAL route every 6 hours As needed; 20 tablet, Zofran 4 mg Oral Tablet - take 1 tablet by ORAL route every 12 hours As needed; 20 tablet. and Forms are Medication Reconciliation Form, Thank You Letter, Antibiotic Education, Prescription Opioid Use. Follow up: Private Physician; When: 2 - 3 days; Reason: Recheck today's complaints, Continuance of care, Re-evaluation by your physician. Follow up: Blair Carroll; When: 2 - 3 days; Reason: Recheck today's complaints, Re-evaluation by your physician. Problem is new. Symptoms have improved. efrain
--- NOTE | 2020-09-27 06:51 | ER ---
Nurse's Notes [facility] Name: Arianne Montanez Age: 20 yrs Sex: Female : 2000 Arrival Date: 09/27/2020 Time: 02:05 Bed 13 Private MD: Diagnosis: Abdominal tenderness;Nausea;Ileus, unspecified-ENTERITIS Presentation: 09/27 02:13 Chief complaint: Patient states: RUQ abdominal pain that radiates to the right side and sg right upper back that began an hour ago. 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 pt states having been started on zofran for lower abdominal cramping, has subsided but this pain is new. Coronavirus screen: Client denies travel out of the [place] in the last 14 days. nausea, Client presents with at least one sign or symptom that may indicate coronavirus-19. Provider contacted for isolation considerations. Ebola Screen: Patient negative for fever greater than or equal to 101.5 degrees Fahrenheit, and additional compatible Ebola Virus Disease symptoms Patient denies exposure to infectious person. Patient denies travel to an Ebola-affected area in the 21 days before illness onset. No symptoms or risks identified at this time. Initial Sepsis Screen: Does the patient meet any 2 criteria? HR > 90 bpm. Does the patient have a suspected source of infection? Yes: Acute abdominal pain. Risk Assessment: Do you want to hurt yourself or someone else? Patient reports no desire to harm self or others. Onset of symptoms was September 27, 2020 at 01:22. Care prior to arrival: None. Mechanism of Injury: No Mechanism of Injury. Transition of care: patient was not received from another setting of care. 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 Last sf sexual activity 09/25/2020 Historical: - Allergies: 02:16 PENICILLINS; sg 02:16 Prednisone; sg 02:16 Tylenol; sg 02:16 Tylenol-Codeine #3; sg 02:16 Sulfa (Sulfonamide Antibiotics); sg 02:16 Vancomycin; sg - Home Meds: 03:08 Vitamin Oral tab 1 tab once daily [Active]; sf - PMHx: 02:16 Depression/Anxiety; Migraines; sg - PSHx: 02:16 Tonsillectomy; Ear Tubes; sg - Immunization history:: Adult Immunizations. - Social history:: Smoking status: Patient denies any tobacco usage or history of. Patient/guardian denies using alcohol, street drugs, IV drugs. Screenin:10 Abuse screen: Denies threats or abuse. Denies injuries from another. Nutritional sf screening: No deficits noted. Tuberculosis screening: No symptoms or risk factors identified. Never had TB. Possible symptoms: None Risk factors: None. Fall Risk None identified. No fall in past 12 months (0 pts). No secondary diagnosis (0 pts). IV access (20 points). Ambulatory Aid- None/Bed Rest/Nurse Assist (0 pts). Gait- Normal/Bed Rest/Wheelchair (0 pts) Mental Status- Oriented to own ability (0 pts). Total Pillai Fall Scale indicates No Risk (0-24 pts). Assessment: 02:10 General: Appears uncomfortable, Behavior is calm, cooperative. Pain: Complains of pain sf in suprapubic area Pain currently is 8 out of 10 on a pain scale. Neuro: No deficits noted. Level of Consciousness is awake, alert, Oriented to person, place, time, situation, Appropriate for age. Cardiovascular: No deficits noted. Patient's skin is warm and dry. Respiratory: No deficits noted. Airway is patent Respiratory effort is even, unlabored, Respiratory pattern is regular, symmetrical. GI: Bowel sounds present X 4 quads. GI: Abdomen is flat, non-distended, Abd is soft Abdomen is tender to palpation in suprapubic area Reports lower abdominal pain, nausea, normal bowel habits, Patient currently denies vomiting. : Urine is clear, Reports vaginal bleeding that is continuously for a long time. 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 03:40 Reassessment: Patient and/or family updated on plan of care and expected duration. Pain sf level reassessed. Patient is alert, oriented x 3, equal unlabored respirations, skin warm/dry/pink. Patient reports pain down to 5/10 from 8/10 but nausea is unchanged, Dr. Mullins notified, OTIS repeat Zofran 4 mg IVP once. 04:11 Reassessment: Patient appears in no apparent distress at this time. Patient and/or sf family updated on plan of care and expected duration. Pain level reassessed. Patient is alert, oriented x 3, equal unlabored respirations, skin warm/dry/pink. Patient finished with PO contrast, CT scan notified Patient states feeling better. Patient states symptoms have improved. 05:03 Reassessment: Patient appears in no apparent distress at this time. No changes from sf previously documented assessment. Patient and/or family updated on plan of care and expected duration. Pain level reassessed. Patient is alert, oriented x 3, equal unlabored respirations, skin warm/dry/pink. Patient states feeling better. Patient states symptoms have improved. 06:00 Reassessment: Patient appears in no apparent distress at this time. Patient and/or sf family updated on plan of care and expected duration. Pain level reassessed. Patient is alert, oriented x 3, equal unlabored respirations, skin warm/dry/pink. Reports increase in back pain since last assessment. 06:59 Reassessment: Patient appears in no apparent distress at this time. Patient and/or sf family updated on plan of care and expected duration. Pain level reassessed. Patient is alert, oriented x 3, equal unlabored respirations, skin warm/dry/pink. 07:00 Reassessment: RECD REPORT FROM JOYCE STOLL. 20YO WF P/W ABDOMINAL PAIN AND NAUSEA. D/C bp ON HOLD FOR IVF AND ABX COMPLETION. 08:00 Reassessment: PT D/C HOME AMBULATORY, DX WITH ENTERITIS. bp Vital Signs: 02:13 BP 138 / 93; Pulse 112; Resp 16; Temp 99.2(O); Pulse Ox 100% on R/A; Pain 7/10; sg 02:30 BP 107 / 73; Pulse 107; Resp 16; Pulse Ox 98% ; sf 03:00 BP 108 / 64; Pulse 104; Resp 16; Pulse Ox 96% ; sf 03:00 Pain 8/10; sf 03:30 BP 166 / 68; Pulse 104; Resp 16; Pulse Ox 96% ; sf 03:40 Pain 5/10; sf 04:00 BP 102 / 65; Pulse 94; Resp 16; Pulse Ox 98% ; sf 04:10 Pain 2/10; sf 04:30 BP 104 / 63; Pulse 98; Resp 16; Pulse Ox 97% ; sf 05:00 BP 117 / 78; Pulse 104; Resp 16; Pulse Ox 97% ; sf 06:00 BP 109 / 55; Pulse 100; Resp 16; Pulse Ox 99% ; Pain 7/10; sf 06:59 Pain 5/10; sf 08:00 BP 115 / 69; Pulse 95; Resp 17; Pulse Ox 98% ; bp ED Course: 02:05 Patient arrived in ED. am4 02:10 Patient has correct armband on for positive identification. Placed in gown. Bed in low sf position. Call light in reach. Side rails up X 1. Pulse ox on. NIBP on. Door closed. Noise minimized. Visitors limited. Lights dimmed. Warm blanket given. Verbal reassurance given. 02:16 Triage completed. sg 02:16 Lopez Mullins MD is Attending Physician. [facility] 02:16 Arm band placed on. sg 02:20 Urine collected: clean catch specimen, clear. em 02:43 Rojas Caballero RN is Primary Nurse. sf 02:50 Initial lab(s) drawn, by id, sent to lab. Inserted saline lock: 20 gauge in right sf antecubital area, using aseptic technique. Blood collected. 04:12 No provider procedures requiring assistance completed. sf 05:[address] Scan. sf 05:29 CT Abd/Pelvis - PO and IV Contrast Sent. sf 05:47 CT Abd/Pelvis - PO and IV Contrast In Process Unspecified. EDMS 06:50 Blair Carroll MD is Referral Physician. efrain 07:03 Report given to JERMAN Solomon. sf 08:07 IV discontinued, intact, bleeding controlled, No redness/swelling at site. Pressure bp dressing applied. Administered Medications: 03:00 Drug: Zofran (Ondansetron) 4 mg Route: IVP; Site: right antecubital; sf 03:41 Follow up: Response: No adverse reaction; Nausea unchanged sf 03:00 Drug: fentaNYL (PF) 25 mcg Route: IVP; Site: right antecubital; sf 03:42 Follow up: Response: No adverse reaction; Pain is decreased sf 03:47 Drug: fentaNYL (PF) 25 mcg Route: IVP; Site: right antecubital; sf 04:10 Follow up: Response: No adverse reaction; Pain is decreased sf 03:47 Drug: Zofran (Ondansetron) 4 mg Route: IVP; Site: right antecubital; sf 04:09 Follow up: Response: No adverse reaction; Nausea is decreased sf 06:03 Drug: TORadol 30 mg Route: IVP; Site: right antecubital; sf 07:00 Follow up: Response: No adverse reaction; Pain is decreased sf 06:57 Drug: NS 0.9% 1000 ml Route: IV; Rate: 1 bolus; Site: right antecubital; sf 08:09 Follow up: IV Status: Completed infusion; IV Intake: 1000ml bp 06:58 Drug: Cipro 400 mg Volume: 200 ml; Route: IVPB; Infused Over: 60 mins; Site: right sf antecubital; 08:09 Follow up: IV Status: Completed infusion; IV Intake: 200ml bp 06:59 Drug: Flagyl 500 mg Route: PO; sf 08:09 Follow up: Response: No adverse reaction bp Intake: 08:09 IV: 200ml; Total: 200ml. bp 08:09 IV: 1000ml; Total: 1200ml. bp Outcome: 06:50 Discharge ordered by . [facility] 08:06 Discharged to home ambulatory. bp 08:06 Condition: stable 08:06 Discharge instructions given to patient, Instructed on discharge instructions, follow up and referral plans. medication usage, Demonstrated understanding of instructions, follow-up care, medications, Prescriptions given X 4. 08:10 Patient left the ED. bp Signatures: Dispatcher [employer] Rojas Astorga RN RN sg Anderson, Corey, MD MD cha Munoz, Edgar, RN RN em Peltier, Brian, RN RN bp Martinez, Ashley [facility] Rojas Caballero RN RN sf Corrections: (The following items were deleted from the chart) 03:07 02:10 GI: Abdomen is flat, non-distended, Abd is soft Abdomen is tender to palpation in sf suprapubic area Reports lower abdominal pain, normal bowel habits, Patient currently denies nausea, vomiting, sf 03:07 02:10 : No signs and/or symptoms were reported regarding the genitourinary system. sf sf
[2020-09-27] MEDS ORDERED: metroNIDAZOLE 500 MG TABLET ONE (07:10)
[2020-09-27] MEDS ORDERED: NA CHLORIDE 0.9% 1,000 ML ONE (07:11)
[2020-09-27] MEDS ORDERED: CIPROFLOXACIN 400mg IV 400 MG/200 ML BAG IV ONE (07:11)
--- NOTE | 2020-09-27 10:39 | RAD REPORT ---
EXAM DESCRIPTION: CT - Abdomen Pelvis W Contrast - 09/27/2020 6:53 am CLINICAL HISTORY: ABD PAIN COMPARISON: None Available. TECHNIQUE: CT of the abdomen and pelvis performed following IV administration of iodinated contras t. Oral contrast administered. FINDINGS: Lung Bases: The visualized lung bases are clear. Left lung calcified granuloma. 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 No acute osseous abnormalities identified. Abdomen: Liver: The liver has normal size and density. No intrahepatic biliary dilatation. Gallbladder: No calcified gallstones. Spleen, Pancreas, and Adrenal Glands: The spleen, pancreas, and adrenal glands are unremarkable. Kidneys: No hydronephrosis or obstructing calculus. Vasculature: The aorta and IVC have normal caliber and position. The portal vein is patent. The pro ximal visceral and renal arteries are patent. Stomach: The stomach and duodenum have normal course. Other: No free intraperitoneal air. No free fluid or lymphadenopathy. Pelvis: Bladder: Urinary bladder is unremarkable. Bowel: Probably prominent loops of small bowel without distal decompression. Orally administered co ntrast extends into the colon. Appendix: Normal appendix. Pelvis: Uterus is not enlarged. IMPRESSION: 1. Mildly prominent loops of all bowel without significant distal decompression or trans ition point. Orally administered contrast is identified in the colon. Findings most suggestive of ile us/enteritis. This exam was performed according to our departmental dose-optimization program, which includes autom ated exposure control, adjustment of the mA and/or kV according to patient size and/or use of iterati ve reconstruction technique. Electronically signed by: Jose Elias Browning 09/27/2020 6:01 AM PROMOTION OFFICER Due to temporary technical issues with the PACS/Fluency reporting system, reports are being signed by the in house radiologists without review as a courtesy to insure prompt reporting. The interpreting radiologist is fully responsible for the content of the report.
== END 2020-09-27 08:10 | disposition home or self-care (01) ==
LOC: ER 02:02
DX: K52.9 Noninfective gastroenteritis and colitis, unspecified (principal); K56.7 Ileus, unspecified; R11.0 Nausea; Z88.0 Allergy status to penicillin; Z88.2 Allergy status to sulfonamides; Z88.3 Allergy status to other anti-infective agents; Z88.5 Allergy status to narcotic agent; Z88.8 Allergy status to other drugs, medicaments and biological substances
CPT/HCPCS: 96365; 85025; 80048; 36415; 81025; 80076; 81003; 83690; 74177; 96375; 99284; Q9967; J3010; J7030; J2405 ×2; J0744

== ENCOUNTER 2022-11-28 00:37 | Emergency (ER) | payer OTHER ==
--- OUTSIDE RECORDS SUMMARY | 2022-11-28 00:43 | XMS REPORT | Continuity of Care Document ---
:2000 Author Organization [facility] t Address [address] [place] [address] Care Team Providers Name Role Phone Asked, No Pcp Primary Care Physician Unavailable LISBET MURPHY Attending Clinician Unavailable AWAIS HEARD Attending Clinician Unavailable KENYON AYOUB Attending Clinician Unavailable [id number] Attending Clinician Unavailable VALENTINO ORTEGA Attending Clinician Unavailable YOLANDA SAXENA Attending Clinician Unavailable SONAM PENALOZA Attending Clinician Unavailable OLIVER MÁRQUEZ Attending Clinician Unavailable TEODORA LISA Attending Clinician Unavailable MARYJANE RIOS Attending Clinician Unavailable JOHN PEDRAZA Attending Clinician Unavailable SHANNON PERAZA Attending Clinician Unavailable [id number] Attending Clinician Unavailable TESTING, LJ COVID CURBSIDE Attending Clinician Unavailable TEJAL LEW Attending Clinician Unavailable KETURAH BLACK Attending Clinician Unavailable [id number] Attending Clinician Unavailable Rabia BARNES, Shannon Rojas Attending Clinician INJ, ASHLEY Attending Clinician Unavailable PEYMAN HARRIS Attending Clinician Unavailable KRISTINE ARVIZU Attending Clinician Unavailable Only, Adc Test Attending Clinician Unavailable Chinyere Rios MD Attending Clinician CHINYERE RIOS Attending Clinician Unavailable Alexia Lawson RN Attending Clinician Unavailable Only, Adc Pob2 Test Attending Clinician Unavailable Aryan Vasquez DO Attending Clinician ARYAN VASQUZE Attending Clinician Unavailable Kristine Arivzu PA-C Attending Clinician ANTOINETTE PATINO Attending Clinician Unavailable Nurse, Vikash Pob Immunization Attending Clinician Unavailable Vaccine, [employer] Pedi Attending Clinician Unavailable Lee NORMAN Sophia Kami Attending Clinician SOPHIA HOWARD Attending Clinician Unavailable ZAHIDA JOHNSON Attending Clinician Unavailable Doctor Unassigned, [employer] Attending Clinician Unavailable Pob, Adc Lab Main Attending Clinician Unavailable Zahida Johnson MD Attending Clinician Leeanna Murdock RN Attending Clinician Unavailable Joe Sow DO Attending Clinician Sandy Rollins DO Attending Clinician Brooks Platt MD Attending Clinician Gian Childers Attending Clinician Shanell Irving Attending Clinician SHANELL BAIRD Attending Clinician Unavailable Isidra Brown Attending Clinician Unknown, Attending Attending Clinician Unavailable UNKNOWN, ATTENDING Attending Clinician Unavailable Larisa BARNES, Radha Attending Clinician James Smith DO Attending Clinician Nurse, Manjinder Urgent Attending Clinician Unavailable Rudy STOLL, Estefanía Marva Attending Clinician Baba BARNES, Che Brock Attending Clinician Filiberto BARNES, Vika Brito Attending Clinician [phone] Toby VIRK, Jory Attending Clinician Alfredo Anaya MD, Gadiel Attending Clinician Baba BARNES, Che Brock Admitting Clinician Gadiel Evans MD Admitting Clinician Payers Payer Name Policy Type Policy Number Effective Date Expiration Date S ron [facility] [id number] 2018 EMPLOYEE PLAN 00:00:00 [facility] 2020 9 [id number] 2022 00:00:00 Problems Condition Condition Condition Status Onset Resolution Last Treating Co mments Source Name Details Category Date Date Treatment Clinician Date Iron Iron Disease Active Linda deficiency deficiency 7-14 Se ybold anemia anemia 00:00: - 00 Externa l Scoliosis Scoliosis Disease Active Eduardo sey 7-14 Seybold 00:00: - 00 Externa l Major Major Disease Active Linda depressive depressive 5-06 Se ybold disorder, disorder, 00:00: - single single 00 Externa episode, episode, l unspecifie unspecifie d d Knee pain Knee pain Disease Active Uni vers 8-26 ity of 00:00: [place] 00 [facility] Branch Osteomyeli Osteomyeli Disease Active U nivers tis of tis of 8-18 ity of right right 00:00: [place] tibia tibia 00 Medical Branch Painful Painful Disease Active Univers orthopaedi orthopaedi 6-26 it y of c hardware c [place] right knee right knee 00 [place] dical Branch Chronic Chronic Disease Active Overview: Univ ers pain of pain of 6-24 Formattin ity o f right knee right knee 00:00: g of this [place] 00 note Medical might be Branch different from the original. Added automatic ally from request for surgery [id number] Right Right Disease Active 2015-07 Univers ankle pain ankle pain 1-28 it y of 00:00: Medical Branch Right hip Right hip Disease Active Uni vers pain pain 9- ity of 00:00: [place] [facility] Family Family Disease Active Univers planning planning 2-20 ity of 00:00: [place] [facility] Menorrhagi Menorrhagi Disease Active 2012-07 K elsey a a 0-29 Seybold 00:00: - 00 Externa l Dysmenorrh Dysmenorrh Disease Active 2012-07 U ammoners ea ea 0-29 ity of 00:00: [place] [facility] Colitis Colitis Problem Active Common [facility] Chronic Chronic Problem Active Common back pain back pain Spir [facility] Depression Depression Problem Active C ommon [facility] Scoliosis Scoliosis Problem Active Com mon (and (and Spirit kyphoscoli kyphoscoli - [facility]I osis), osis), [facility] Migraine Migraine Problem Active Commo n headache headache Spirit without without - [facility] aura aura [facility] Acne Acne Problem Active Common vulgaris vulgaris [facility] High risk High risk Problem Active Com mon heterosexu heterosexu Sp evelin al al - [facility] behavior behavior [facility] Iron Iron Problem Active Common deficiency deficiency Sp evelin anemia, anemia, - [facility] unspecifie unspecifie St iron d iron [facility] deficiency deficiency Me dical anemia anemia Center type type Mixed Mixed Problem Active Common hyperlipid hyperlipid Sp evelin emia emia [facility] Allergies, Adverse Reactions, Alerts Allergy Allergy Status Severity Reaction(s) Onset Inactive Treating Comm ents Source Name Type Date Date Clinician Jessi Escamilla Active Other Suicidal Linda ty to 4-12 thoughts Seybold adverse 00:00: (interact - reaction 00 ion with Pelletizer Operator a s other l meds) Penicill DA Active [facility] ins 04-22 [facility] [place] codeine DA Active [facility] 04-22 [facility] 00:[facility] [place] acetamin DA Active [facility] ophen 04-22 [facility] 00:[facility]: [facility] [place] predniso DA Active [facility] ne 04-22 [facility] 00:[facility]: [facility] [place] sulfamet DA Active [facility] hoxazole 04-22 [facility] 00:[facility]: [facility] [place] trimetho DA Active [facility] prim 04-22 [facility] 00:[facility]: [facility] [place] vancomyc DA Active [facility] in 04-22 Woman[facility] 00:00: [facility] [place] ACETAMIN DRUG Active Rash Univers OPHEN-CO 04-11 ity of DEINE 00:00: [place] 00 Medical Branch Acetamin Propensi Active Rash Univer s ophen-Co ty to 04-11 ity of deine adverse 00:00: [place] reaction 00 Medical s Branch Predniso Propensi Active Hives 2019-0 Linda ne ty to 04-09 Seybold adverse 00:00: - reaction 00 Externa s l PREDNISO DRUG Active Hives 2018- Univers NE INGREDI 04-09 ity of 00:00: [place] [facility] Predniso Propensi Active Hives 2019-0 Univer s ne ty to 04-09 ity of adverse 00:00: [place] reaction 00 Medical s Branch Acetamin Propensi Active Rash 2018- Linda ophen-Co ty to 04-04 Seybold deine adverse 00:00: - reaction 00 Externa s l Acetamin Propensi Active Hives 2019- Method i ophen-Co ty to 04-04 st deine adverse 00:00: Hospita reaction 00 l s to drug Penicill DA Active [facility] ins 03-26 Clear 00:00: Rai 00 [facility] [place] [address] [facility] hoxazole 03-26 Clear 00:00: Rai 00 [facility] trimetho DA Active MO 2018-0 [facility] prim 03-26 Clear 00:00: Rai [facility] vancomyc DA Active MO 2019- [facility] in 03-26 Clear 00:00: Rai 00 [facility] Vancomyc Propensi Active Nausea and 2019-0 Other Ke lsey in ty to Vomiting 03-23 reaction( Seybo ld adverse 00:00: s): - reaction 00 Nausea Externa s and/or l Vomiting VANCOMYC DRUG Active Hives 2019-0 Univers IN INGREDI 03-23 ity of 00:00: [place] 00 Medical Branch Vancomyc Propensi Active Hives [address] Other Method i in ty to 03-23 reaction( st adverse 00:00: s): Hospita reaction 00 Nausea l s to and/or drug Vomiting Sulfamet Propensi Active Rash 2018-0 Linda hoxazole ty to 03-15 Seybold adverse 00:00: - reaction 00 Externa s l SULFAMET DRUG Active Rash 2018-0 Univers HOXAZOLE 03-15 ity of (BULK) 00:00: [place] 00 Medical Branch Sulfamet Propensi Active Rash 2019-0 Univer s hoxazole ty to 03-15 ity of (Bulk) adverse 00:00: [place] reaction 00 Medical s Branch Sulfamet Propensi Active Rash 2018- Method i hoxazole ty to 03-15 st (Bulk) adverse 00:00: Hospita reaction 00 l s to drug No Known DA Active U [facility] Allergie 12-14 [place] s 00:00: Orthope 00 dic Hospita l PENICILL DRUG Active High Hives 2017- Univers IN INGREDI 3-05 ity of 00:00: [place] 00 Medical Branch Penicill Propensi Active Shortness of 2018-0 Univers in ty to Breath 3-05 ity of adverse 00:00: [place] reaction 00 Medical s Branch Penicill Propensi Active Shortness Of 2018-0 Methodi in ty to Breath 3-05 st adverse 00:00: Hospita reaction 00 l s to drug Penicill Propensi Active Shortness of 2015-07 Linda ins ty to Breath 2-06 Seybold adverse 00:00: - reaction 00 Externa s l PENICILL Drug Active Hives 2015-07 Univers INS Class 2-06 ity of 00:00: [place] 00 Medical Branch Penicill Propensi Active Itching 2015-07 Unive rs ins ty to 2-06 ity of adverse 00:00: [place] reaction 00 Medical s Branch penicill Adverse Active anaphylaxis Co mmon in Reaction [facility] Family History Family Member Diagnosis Comments Start Date Stop Date Source Natural father [facility] Natural mother [facility] Social History Social Habit Start Date Stop Date Quantity Comments Source Exposure to Not sure University of SARS-CoV-2 (event) [place] [facility] History [facility] University o f Alcohol Frequency [facility] History SDME University o f Alcohol Std Drinks [place] [facility] History [facility] University o f Alcohol Binge [place] [facility] Gender identity [facility] Sexual orientation [facility] History of Social 2022-02-08 2022-02-08 Linda Seybold - function 00:00:00 00:00:00 External Alcohol Comment 2020-12-01 2020-12-01 occassionally Univer sity of 00:00:00 00:00:00 [facility] Alcohol intake 2019-04-04 2019-04-04 Current non-drinker Marva ethodist 00:00:00 00:00:00 of alcohol Hospital (finding) History [facility] 2019-03-23 2019-03-23 4 University o f Financial 00:00:00 00:00:00 [place] [facility] History [facility] Food 2019-03-23 2019-03-23 1 Univers ity of Worry 00:00:00 00:00:00 [place] [facility] History [facility] Food 2019-03-23 2019-03-23 1 Univers ity of Scarcity 00:00:00 00:00:00 [place] [facility] History [facility] 2019-03-23 2019-03-23 2 University o f Transport Med 00:00:00 00:00:00 [facility] al Branch History [facility] 2019-03-23 2019-03-23 2 University o f Transport Non-Med 00:00:00 00:00:00 [facility] [place] Tobacco use and 2014-08-17 2014-08-17 Smokeless tobacco Ke russelley Seybold - exposure 00:00:00 00:00:00 non-user External Sex Assigned At [birth year] [facility] 00:00:00 [facility] Smoking Status Start Date Stop Date Source Never smoked tobacco Linda Seyb old - External Medications Ordered Filled Start Stop Current Ordering Indication Dosage Frequency Signature Comments Components Source Medication Medication Date Date Medication? Clinician (SIG) Name Name Aripiprazol Yes 10mg Take 10 mg Linda e 10 MG 4-27 by mouth Seybold oral Tablet 15:51: at bedtime - 20 Externa l Escitalopra Yes 10mg Take 1 Jenni ey m Oxalate 4-27 tablet (10 Seyb old 10 MG oral 15:51: mg total) - Tablet 20 by mouth Externa at bedtime l Lisdexamfet 2022-0 Yes 60mg Take 1 Jenni ey amine 4-27 capsule Seybold Dimesylate 15:51: (60 mg - 60 MG oral 20 total) by Exte rna Capsule mouth l every morning Aripiprazol 0 Yes 10mg Take 10 mg Linda e 10 MG 4-27 by mouth Seybold oral Tablet 15:51: at bedtime - 20 Externa l Escitalopra 0 Yes 10mg Take 1 Jenni ey m Oxalate 4-27 tablet (10 Seyb old 10 MG oral 15:51: mg total) - Tablet 20 by mouth Externa at bedtime l Lisdexamfet 0 Yes 60mg Take 1 Jenni ey amine 4-27 capsule Seybold Dimesylate 15:51: (60 mg - 60 MG oral 20 total) by Exte rna Capsule mouth l every morning Aripiprazol 0 Yes 10mg Take 10 mg Linda e 10 MG 4-12 by mouth Seybold oral Tablet 10:03: at bedtime - 14 Externa l Escitalopra 0 Yes 10mg Take 1 Jenni ey m Oxalate 4-12 tablet (10 Seyb old 10 MG oral 10:03: mg total) - Tablet 14 by mouth Externa at bedtime l Lisdexamfet 0 Yes 60mg Take 1 Jenni ey amine 4-12 capsule Seybold Dimesylate 10:03: (60 mg - 60 MG oral 14 total) by Exte rna Capsule mouth l every morning Benzonatate 2022-0 2022- Yes [id number] 150mg [id number] Take 1 Linda 150 MG oral -09 29- [id number] capsule Seybold Capsule 00:00: 04:59 3D (150 mg - 00 :00 total) by Externa mouth 3 l times daily as needed (cough) for up to 10 days Benzonatate 2022-0 2022- Yes [id number] 150mg Q.[id number] Take 1 Linda 150 MG oral -09 29-14 [id number] capsule Seybold Capsule 00:00: 04:59 3D (150 mg - 00 :00 total) by Externa mouth 3 l times daily as needed (cough) for up to 10 days Pregabalin 2023-0 Yes 1 po q hs Oseas mathews (Lyrica) 50 3-15 x 3 Seybold MG oral 00:00: nights, - Capsule 00 then 1 po Externa bid l Pregabalin 2022-0 2022- No 1 po q hs Anjel senior (Lyrica) 50 3-15 04-12 x 3 Seybold MG oral 00:00: 00:00 nights, - Capsule 00 :00 then 1 po Externa bid l Aripiprazol 2022-0 Yes 10mg Take 10 mg Linda e 10 MG 2-06 by mouth Seybold oral Tablet 14:55: at bedtime - 50 Externa l Escitalopra 2022-0 Yes 10mg Take 10 mg Linda m Oxalate 2-06 by mouth Seybol d 10 MG oral 14:55: at bedtime - Tablet 50 Externa l Lisdexamfet 2022-0 Yes 60mg Take 60 mg Linda amine 2-06 by mouth Seybold Dimesylate 14:55: every - 60 MG oral 50 morning Pelletizer Operator a Capsule l Aripiprazol 2022-0 Yes 10mg Take 10 mg Linda e 10 MG 2-06 by mouth Seybold oral Tablet 14:55: at bedtime - 50 Externa l Escitalopra 2022-0 Yes 10mg Take 10 mg Linda m Oxalate 2-06 by mouth Seybol d 10 MG oral 14:55: at bedtime - Tablet 50 Externa l Lisdexamfet 2022-0 Yes 60mg Take 60 mg Linda amine 2-06 by mouth Seybold Dimesylate 14:55: every - 60 MG oral 50 morning Pelletizer Operator a Capsule l Aripiprazol 2022-0 Yes 10mg Take 10 mg Linda e 10 MG 2-06 by mouth Seybold oral Tablet 14:55: at bedtime - 50 Externa l Escitalopra 2022-0 Yes 10mg Take 10 mg Linda m Oxalate 2-06 by mouth Seybol d 10 MG oral 14:55: at bedtime - Tablet 50 Externa l Lisdexamfet 2022-0 Yes 60mg Take 60 mg Linda amine 2-06 by mouth Seybold Dimesylate 14:55: every - 60 MG oral 50 morning Pelletizer Operator a Capsule l Meclizine 2023-0 Yes 12.5mg Q.[id number] Take 1 Linda HCl 12.5 MG 2-06 [id number] tablet Seybold oral Tablet 00:00: 3D (12.5 mg - 00 total) by Externa mouth 3 l times daily as needed Meclizine 2023-0 Yes 12.5mg Q.[id number] Take 1 Linda HCl 12.5 MG 2-06 [id number] tablet Seybold oral Tablet 00:00: 3D (12.5 mg - 00 total) by Externa mouth 3 l times daily as needed Meclizine 2023-0 Yes 12.5mg Q.[id number] Take 1 Linda HCl 12.5 MG 2-06 [id number] tablet Seybold oral Tablet 00:00: 3D (12.5 mg - 00 total) by Externa mouth 3 l times daily as needed Meclizine 2023-0 Yes 12.5mg Q.[id number] Take 1 Linda HCl 12.5 MG 2-06 [id number] tablet Seybold oral Tablet 00:00: 3D (12.5 mg - 00 total) by Externa mouth 3 l times daily as needed Meclizine 2023-0 Yes 12.5mg Q.[id number] Take 1 Linda HCl 12.5 MG 2-06 [id number] tablet Seybold oral Tablet 00:00: 3D (12.5 mg - 00 total) by Externa mouth 3 l times daily as needed Meclizine 2023-0 Yes 12.5mg Q.[id number] Take 1 Linda HCl 12.5 MG 2-06 [id number] tablet Seybold oral Tablet 00:00: 3D (12.5 mg - 00 total) by Externa mouth 3 l times daily as needed Propranolol 2021-2021- No 2mg/kg/ Take 2 Linda HCl 20 2-19 12-19 d mg/kg/day Seybold MG/5ML oral 09:18: 00:00 by mouth 3 - Solution 29 :00 times Externa daily l Aripiprazol 2021-07 Yes 10mg Take 10 mg Linda e 10 MG 2-19 by mouth Seybold oral Tablet 08:51: at bedtime - 07 Externa l Escitalopra 2022-1 Yes 10mg Take 10 mg Linda m Oxalate 2-19 by mouth Seybol d 10 MG oral 08:51: at bedtime - Tablet 07 Externa l Lisdexamfet 2021-07 Yes 60mg Take 60 mg Linda amine 2-19 by mouth Seybold Dimesylate 08:51: every - 60 MG oral 07 morning Pelletizer Operator a Capsule l Aripiprazol 2021-07 Yes 10mg Take 10 mg Linda e 10 MG 1-29 by mouth Seybold oral Tablet 08:36: at bedtime - 07 Externa l Escitalopra 2021-07 Yes 10mg Take 10 mg Linda m Oxalate -29 by mouth Seybol d 10 MG oral 08:36: at bedtime - Tablet 07 Externa l Lisdexamfet 2021-07 Yes 60mg Take 60 mg Linda amine 1-29 by mouth Seybold Dimesylate 08:36: every - 60 MG oral 07 morning Pelletizer Operator a Capsule l Propranolol 2021-07 Yes 2mg/kg/ Take 2 K elsey HCl 20 -29 d mg/kg/day Seybold MG/5ML oral 08:36: by mouth 3 - Solution 07 times Externa daily l CLINDAMYCIN 2021-07 Yes [id number] Apply BID Linda PHOSPHATE,T 1- to armpits Se ybold OPICAL, 1 % 00:00: and groin - apply 00 for cyst Externa externally and acne l SWAB like spots. This is always used along with daily OTC benzoyl peroxide wash Doxycycline 2021-07 Yes [id number] Take one Linda Monohydrate 1-29 po BID for Se ybold 100 MG oral 00:00: hidradenit - Capsule 00 is. Take Externa with l meal/snack . CLINDAMYCIN 2021-07 Yes [id number] Apply BID Linda PHOSPHATE,T 1-29 to armpits Se ybold OPICAL, 1 % 00:00: and groin - apply 00 for cyst Externa externally and acne l SWAB like spots. This is always used along with daily OTC benzoyl peroxide wash Doxycycline 2021-07 Yes [id number] Take one Linda Monohydrate 1-29 po BID for Se ybold 100 MG oral 00:00: hidradenit - Capsule 00 is. Take Externa with l meal/snack . CLINDAMYCIN 2021-07- No [id number] Apply BID Linda PHOSPHATE,T 08-26 to armpits S eybold OPICAL, 1 % 00:00: 00:00 and groin - apply 00 :00 for cyst Externa externally and acne l SWAB like spots. This is always used along with daily OTC benzoyl peroxide wash Doxycycline 2021-07- No [id number] Take one Linda Monohydrate 08-26 po BID for S eybold 100 MG oral 00:00: 00:00 hidradenit - Capsule 00 :00 is. Take Externa with l meal/snack . Lisdexamfet 2021-07 Yes 60mg Take 60 mg Linda amine 1-22 by mouth Seybold Dimesylate 08:25: every - (Vyvanse) 01 morning Externa 60 MG oral l Capsule Propranolol 2021-07 Yes 2mg/kg/ Take 2 K elsey HCl 20 1-22 d mg/kg/day Seybold MG/5ML oral 08:25: by mouth 3 - Solution 01 times Externa daily l Amphetamine 2021-07- No 1{tbl} 1 tablet Linda -Dextroamph 1-22 11-22 by other Sey bold etamine 30 08:23: 00:00 route - MG oral 05 :00 Externa Tablet l Aripiprazol 2021-07 Yes 10mg Take 10 mg Linda e 10 MG 1-22 by mouth Seybold oral Tablet 08:13: at bedtime - 40 Externa l Escitalopra 2021-07 Yes 10mg Take 10 mg Linda m Oxalate 1-22 by mouth Seybol d 10 MG oral 08:13: at bedtime - Tablet 40 Externa l Aripiprazol Yes 10mg Take 10 mg Linda e 10 MG 9-22 by mouth Seybold oral Tablet 08:35: at bedtime - 49 Externa l Escitalopra Yes 10mg Take 10 mg Linda m Oxalate 9-22 by mouth Seybol d 10 MG oral 08:35: at bedtime - Tablet 49 Externa l Amphetamine Yes 1{tbl} 1 tablet Linda -Dextroamph 9-22 by other Seyb old etamine 30 08:35: route - MG oral 49 Externa Tablet l Benzonatate 0 Yes [id number] 100mg Q.[id number] Take 1 Linda 100 MG oral - [id number] capsule Seybold Capsule 00:00: 3D (100 mg - 00 total) by Externa mouth 3 l times daily as needed for cough Benzonatate 0 2021- No [id number] 100mg Q.[id number] Take 1 Linda 100 MG oral 9-22 - [id number] capsule Seybold Capsule 00:00: 00:00 3D (100 mg - 00 :00 total) by Externa mouth 3 l times daily as needed for cough Meloxicam 0 Yes 15mg Take 1 Linda 15 MG oral 8-19 tablet (15 Sey bold Tablet 00:00: mg total) - 00 by mouth Externa daily Take l with Meals, STOP IF UPSET STOMACH Meloxicam 2021-0 Yes 15mg Take 1 Linda 15 MG oral 8-19 tablet (15 Sey bold Tablet 00:00: mg total) - 00 by mouth Externa daily Take l with Meals, STOP IF UPSET STOMACH Meloxicam 2021-0 Yes 15mg Take 1 Linda 15 MG oral 8-19 tablet (15 Sey bold Tablet 00:00: mg total) - 00 by mouth Externa daily Take l with Meals, STOP IF UPSET STOMACH Meloxicam 2021-0 Yes 15mg Take 1 Linda 15 MG oral 8-19 tablet (15 Sey bold Tablet 00:00: mg total) - 00 by mouth Externa daily Take l with Meals, STOP IF UPSET STOMACH Meloxicam 2021-0 2022- No 15mg Take 1 Kelse y 15 MG oral 8-19 02-06 tablet (15 Se ybold Tablet 00:00: 00:00 mg total) - 00 :00 by mouth Externa daily Take l with Meals, STOP IF UPSET STOMACH zolpidem 2020-07- No Take by Unive rs tartrate 09-10 12-13 mouth. ity of (AMBIEN 10:31: 00:00 [place] ORAL) 17 :00 Medical Branch escitalopra 2020-07- No Take by Amarjit reyes m oxalate 09-10 12-13 mouth. ity of (LEXAPRO 10:31: 00:00 [place] ORAL) 08 :00 Medical Branch busPIRone 2020-07 Yes Univers 10 mg 0-28 ity of tablet 00:00: Medical Branch busPIRone 2020-07 Yes Univers 10 mg 0-28 ity of tablet 00:00: Medical Branch busPIRone 2020-07 Yes Univers 10 mg 0-28 ity of tablet 00:00: Medical Branch busPIRone 2020-07 Yes Univers 10 mg 0-28 ity of tablet 00:00: Medical Branch LOESTRIN FE 2021- No [id number] 1{tbl} Take 1 Univers 1 mg-20 mcg 12-01 tablet by it y of (21)/75 mg 00:00: 00:00 mouth [place] (7) tablet 00 :00 daily. Medical Branch aripiprazol Yes Take by Uni vers e (ABILIFY 4-08 mouth. ity of ORAL) 13:25: [place] [address] Medical Branch quetiapine Yes Take by [facility] ers fumarate 4-08 mouth. ity of (SEROQUEL 13:25: [place] ORAL) 21 Medical Branch dextroamphe Yes Take by Uni vers tamine/amph 4-08 mouth. ity of etamine 13:25: [place] (ADDERALL 21 Medical ORAL) Branch aripiprazol Yes Take by Uni vers e (ABILIFY 4-08 mouth. ity of ORAL) 13:25: [place] [address] Medical Branch quetiapine Yes Take by [facility] ers fumarate 4-08 mouth. ity of (SEROQUEL 13:25: [place] ORAL) 21 Medical Branch dextroamphe Yes Take by Uni vers tamine/amph 4-08 mouth. ity of etamine 13:25: [place] (ADDERALL 21 Medical ORAL) Branch aripiprazol Yes Take by Uni vers e (ABILIFY 4-08 mouth. ity of ORAL) 13:25: [place] [address] Medical Branch quetiapine Yes Take by [facility] ers fumarate 4-08 mouth. ity of (SEROQUEL 13:25: [place] ORAL) 21 Medical Branch dextroamphe Yes Take by Uni vers tamine/amph 4-08 mouth. ity of etamine 13:25: [place] (ADDERALL 21 Medical ORAL) Branch aripiprazol Yes Take by Uni vers e (ABILIFY 4-08 mouth. ity of ORAL) 13:25: [place] [address] Medical Branch quetiapine Yes Take by Univ ers fumarate 4-08 mouth. ity of (SEROQUEL 13:25: [place] ORAL) 21 Medical Branch dextroamphe Yes Take by Uni vers tamine/amph 4-08 mouth. ity of etamine 13:25: [place] (ADDERALL 21 Medical ORAL) Branch traMADol 2020- No [id number] 50mg Take 1 Univer s (ULTRAM) 50 7-11 12-13 tablet by it y of mg tablet 00:00: 00:00 mouth [place] 00 :00 every 6 Medical (six) Branch hours as needed for Pain (scale 7-10). Indication s: acute pain Tamiflu Tamiflu Yes Luke 1 capsule Common 1-15 [facility] 00:00: - [facility] 00 [facility] hydrOXYzine 2020- No [id number] 25mg Take 1 Univers 25 mg 9-12 12-13 tablet by ity of tablet 00:00: 00:00 mouth [place] 00 :00 every 6 Medical (six) Branch hours. diphenhydrA Yes 25mg QD Take 25 mg Methodi MINE 9-[address] (BENADRYL) 23:15: nightly as H ospita 25 mg 03 needed for l tablet sleep. diphenhydrA Yes 25mg QD Take 25 mg Methodi MINE 9-[address] (BENADRYL) 23:15: nightly as H ospita 25 mg 03 needed for l tablet sleep. acetaminoph Yes 325mg Q6H Take 325 M ethodi en 9-[address] (TYLENOL) 23:15: mouth Hospita 325 MG 02 every 6 l tablet (six) hours as needed for fever. acetaminoph Yes 325mg Q6H Take 325 M ethodi en 9-[address] (TYLENOL) 23:15: mouth Hospita 325 MG 02 every 6 l tablet (six) hours as needed for fever. Immunizations Ordered Filled Immunization Date Status Comments [facility] e Immunization Name Name Influenza, 2022-04-11 Completed Linda Seybold - Injectable, Mdck, 00:00:00 Externa l Quadrivalent With Preservatie Influenza, 2022-04-11 Completed Linda Seybold - Injectable, Mdck, 00:00:00 Externa l Quadrivalent With Preservatie Influenza, 2022-04-11 Completed Linda Seybold - Injectable, Mdck, 00:00:00 Externa l Quadrivalent With Preservatie Influenza, 2022-04-11 Completed Linda Seybold - Injectable, Mdck, 00:00:00 Externa l Quadrivalent With Preservatie Influenza, 2022-04-11 Completed Linda Seybold - Injectable, Mdck, 00:00:00 Externa l Quadrivalent With Preservatie Influenza, 2022-04-11 Completed Linda Seybold - Injectable, Mdck, 00:00:00 Externa l Quadrivalent With Preservatie Influenza, 2022-04-11 Completed Linda Seybold - Injectable, Mdck, 00:00:00 Externa l Quadrivalent With Preservatie Influenza, 2022-04-11 Completed Linda Seybold - Injectable, Mdck, 00:00:00 Externa l Quadrivalent With Preservatie Influenza, 2022-04-11 Completed Linda Seybold - Injectable, Mdck, 00:00:00 Externa l Quadrivalent With Preservatie Influenza, 2022-04-11 Completed Linda Seybold - Injectable, Mdck, 00:00:00 Externa l Quadrivalent With Preservatie Influenza, 2022-04-11 Completed Linda Seybold - Injectable, Mdck, 00:00:00 Externa l Quadrivalent With Preservatie Influenza, 2022-04-11 Completed Linda Seybold - Injectable, Mdck, 00:00:00 Externa l Quadrivalent With Preservatie Influenza, 2022-04-11 Completed Linda Seybold - Injectable, Mdck, 00:00:00 Externa l Quadrivalent With Preservatie Influenza, 2022-04-11 Completed Linda Seybold - Injectable, Mdck, 00:00:00 Externa l Quadrivalent With Preservatie Influenza, 2022-04-11 Completed Linda Seybold - Injectable, Mdck, 00:00:00 Externa l Quadrivalent With Preservatie Influenza, 2022-04-11 Completed Linda Seybold - Injectable, Mdck, 00:00:00 Externa l Quadrivalent With Preservatie Influenza, 2022-04-11 Completed Linda Seybold - Injectable, Mdck, 00:00:00 Externa l Quadrivalent With Preservatie Influenza, 2022-04-11 Completed Linda Seybold - Injectable, Mdck, 00:00:00 Externa l Quadrivalent With Preservatie Influenza, 2022-04-11 Completed Linda Seybold - Injectable, Mdck, 00:00:00 Externa l Quadrivalent With Preservatie Influenza, 2022-04-11 Completed Linda Seybold - Injectable, Mdck, 00:00:00 Externa l Quadrivalent With Preservatie Influenza, 2022-04-11 Completed Linda Seybold - Injectable, Mdck, 00:00:00 Externa l Quadrivalent With Preservatie Influenza, 2022-04-11 Completed Linda Seybold - Injectable, Mdck, 00:00:00 Externa l Quadrivalent With Preservatie Influenza, 2022-04-11 Completed Linda Seybold - Injectable, Mdck, 00:00:00 Externa l Quadrivalent With Preservatie Influenza, 2022-04-11 Completed Linda Seybold - Injectable, Mdck, 00:00:00 Externa l Quadrivalent With Preservatie Influenza, 2022-04-11 Completed Linda Seybold - Injectable, Mdck, 00:00:00 Externa l Quadrivalent With Preservatie Influenza, 2022-04-11 Completed Linda Seybold - Injectable, Mdck, 00:00:00 Externa l Quadrivalent With Preservatie Influenza, 2022-04-11 Completed Linda Seybold - Injectable, Mdck, 00:00:00 Externa l Quadrivalent With Preservatie Influenza, 2022-04-11 Completed Linda Seybold - Injectable, Mdck, 00:00:00 Externa l Quadrivalent With Preservatie Influenza, 2022-04-11 Completed Linda Seybold - Injectable, Mdck, 00:00:00 Externa l Quadrivalent With Preservatie Influenza, 2022-04-11 Completed Linda Seybold - Injectable, Mdck, 00:00:00 Externa l Quadrivalent With Preservatie Influenza, 2022-04-11 Completed Linda Seybold - Injectable, Mdck, 00:00:00 Externa l Quadrivalent With Preservatie Influenza, 2022-04-11 Completed Linda Seybold - Injectable, Mdck, 00:00:00 Externa l Quadrivalent With Preservatie Influenza, 2022-04-11 Completed Linda Seybold - Injectable, Mdck, 00:00:00 Externa l Quadrivalent With Preservatie Influenza, 2022-04-11 Completed Linda Seybold - Injectable, Mdck, 00:00:00 Externa l Quadrivalent With Preservatie Influenza, 2022-04-11 Completed Linda Seybold - Injectable, Mdck, 00:00:00 Externa l Quadrivalent With Preservatie Influenza, 2022-04-11 Completed Linda Seybold - Injectable, Mdck, 00:00:00 Externa l Quadrivalent With Preservatie Influenza, 2022-04-11 Completed Linda Seybold - Injectable, Mdck, 00:00:00 Externa l Quadrivalent With Preservatie PPD-Protein 2021-12-29 Completed Linda Seybol d - Derivative 00:00:00 External (Purified)- Tuberculin PPD-Protein 2021-12-29 Completed Linda Seybol d - Derivative 00:00:00 External (Purified)- Tuberculin PPD-Protein 2021-12-29 Completed Linda Seybol d - Derivative 00:00:00 External (Purified)- Tuberculin PPD-Protein 2021-12-29 Completed Linda Seybol d - Derivative 00:00:00 External (Purified)- Tuberculin PPD-Protein 2021-12-29 Completed Linda Seybol d - Derivative 00:00:00 External (Purified)- Tuberculin PPD-Protein 2021-12-29 Completed Linda Seybol d - Derivative 00:00:00 External (Purified)- Tuberculin PPD-Protein 2021-12-29 Completed Linda Seybol d - Derivative 00:00:00 External (Purified)- Tuberculin PPD-Protein 2021-12-29 Completed Linda Seybol d - Derivative 00:00:00 External (Purified)- Tuberculin PPD-Protein 2021-12-29 Completed Linda Seybol d - Derivative 00:00:00 External (Purified)- Tuberculin PPD-Protein 2021-12-29 Completed Linda Seybol d - Derivative 00:00:00 External (Purified)- Tuberculin SARS-COV-2 COVID-19 2021-07-03 Completed Unive rsity of PFIZER VACCINE 00:00:00 [facility] SARS-COV-2 COVID-19 2021-07-03 Completed Unive rsity of PFIZER VACCINE 00:00:00 [facility] SARS-COV-2 COVID-19 2021-07-03 Completed Unive rsity of PFIZER VACCINE 00:00:00 [facility] SARS-COV-2 COVID-19 2021-07-03 Completed Unive rsity of PFIZER VACCINE 00:00:00 [facility] Influenza Virus 2021-06-28 Completed Linda Se ybold - Vaccine, age 4 00:00:00 External months and up Influenza Virus 2021-06-28 Completed Linda Se ybold - Vaccine, age 4 00:00:00 External months and up Influenza Virus 2021-06-28 Completed Linda Se ybold - Vaccine, age 4 00:00:00 External months and up Influenza Virus 2021-06-28 Completed Linda Se ybold - Vaccine, age 4 00:00:00 External months and up Influenza Virus 2021-06-28 Completed Linda Se ybold - Vaccine, age 4 00:00:00 External months and up Influenza Virus 2021-06-28 Completed Linda Se ybold - Vaccine, age 4 00:00:00 External months and up Influenza Virus 2021-06-28 Completed Linda Se ybold - Vaccine, age 4 00:00:00 External months and up Influenza Virus 2021-06-28 Completed Linda Se ybold - Vaccine, age 4 00:00:00 External months and up Influenza Virus 2021-06-28 Completed Linda Se ybold - Vaccine, age 4 00:00:00 External months and up Influenza Virus 2021-06-28 Completed Linda Se ybold - Vaccine, age 4 00:00:00 External months and up SARS-COV-2 COVID-19 2021-06-12 Completed Unive rsity of PFIZER VACCINE 00:00:00 [facility] SARS-COV-2 COVID-19 2021-06-12 Completed Unive rsity of PFIZER VACCINE 00:00:00 [facility] SARS-COV-2 COVID-19 2021-06-12 Completed Unive rsity of PFIZER VACCINE 00:00:00 [facility] SARS-COV-2 COVID-19 2021-06-12 Completed Unive rsity of PFIZER VACCINE 00:00:00 [facility] Influenza Virus 2019-05-28 Completed Universit y of Vaccine 00:00:00 [facility] Influenza Virus 2019-05-28 Completed Universit y of Vaccine 00:00:00 [facility] Influenza Virus 2019-05-28 Completed Universit y of Vaccine 00:00:00 [facility] Influenza Virus 2019-05-28 Completed Universit y of Vaccine 00:00:00 [facility] Vital Signs Vital Name Observation Time Observation Value Comments Source Systolic blood 2022-11-22 20:50:00 128 mm[Hg] Linda Seybold - pressure External Diastolic blood 2022-11-22 20:50:00 72 mm[Hg] Bruno y Seybold - pressure External Heart rate 2022-11-22 20:50:00 124 /min Linda S eybold - External Body temperature 2022-11-22 20:50:00 37.44 Meaghan Jenni ey Seybold - External Respiratory rate 2022-11-22 20:50:00 16 /min Jenni ey Seybold - External Body height 2022-11-22 20:50:00 170.2 cm Linda S eybold - External Body weight 2022-11-22 20:50:00 84.369 kg Linda S eybold - External BMI 2022-11-22 20:50:00 29.13 kg/m2 Linda S eybold - External Body height 2022-11-07 15:02:00 170.2 cm Linda S eybold - External Body weight 2022-11-07 15:02:00 82.781 kg Linda S eybold - External BMI 2022-11-07 15:02:00 28.58 kg/m2 Linda S eybold - External Systolic blood 2022-09-03 21:58:00 130 mm[Hg] Linda Seybold - pressure External Diastolic blood 2022-09-03 21:58:00 70 mm[Hg] Eduardose y Seybold - pressure External Heart rate 2022-09-03 21:58:00 72 /min Linda S eybold - External Body temperature 2022-09-03 20:54:00 36.61 Meaghan Jenni ey Seybold - External Respiratory rate 2022-09-03 20:54:00 14 /min Jenni ey Seybold - External Body weight 2022-09-03 20:54:00 82.781 kg Linda S eybold - External BMI 2022-09-03 20:54:00 28.58 kg/m2 Linda S eybold - External Systolic blood 2022-07-16 14:47:00 124 mm[Hg] Linda Seybold - pressure External Diastolic blood 2022-07-16 14:47:00 64 mm[Hg] Bruno y Seybold - pressure External Body height 2022-07-16 14:47:00 170.2 cm Linda S eybold - External Body weight 2022-07-16 14:47:00 80.559 kg Linda S eybold - External BMI 2022-07-16 14:47:00 27.82 kg/m2 Linda S eybold - External Body temperature 2022-06-26 14:33:00 36.61 Meaghan Jenni ey Seybold - External Systolic blood 2022-06-19 14:12:00 118 mm[Hg] Linda Seybold - pressure External Diastolic blood 2022-06-19 14:12:00 82 mm[Hg] Bruno y Seybold - pressure External Heart rate 2022-06-19 14:12:00 72 /min Linda S eybold - External Body temperature 2022-06-19 14:12:00 36.94 Meaghan Jenni ey Seybold - External Respiratory rate 2022-06-19 14:12:00 16 /min Jenni ey Seybold - External Body height 2022-06-19 14:12:00 170.2 cm Linda S eybold - External Body weight 2022-06-19 14:12:00 80.74 kg Linda S eybold - External BMI 2022-06-19 14:12:00 27.88 kg/m2 Linda León eybold - External Systolic blood 2021-07-10 16:11:00 124 mm[Hg] Univer sity of pressure [facility] Diastolic blood 2021-07-10 16:11:00 81 mm[Hg] Unive rsity of [facility] Heart rate 2021-07-10 16:11:00 87 /min [facility] Body temperature 2021-07-10 16:11:00 [facility].94 [facility] 2021-07-10 16:11:00 170.2 cm [facility] Body weight 2021-07-10 16:11:00 65.318 kg [facility] BMI 2021-07-10 16:11:00 22.55 kg/m2 [facility] Procedures Procedure Date / Time Performed Performing Clinician Sour e CBC WITH DIFFERENTIAL 2022-11-22 21:44:00 Kenyon Ayoubold - Rivera External TSH RFX ON ABNORMAL TO 2022-11-22 21:44:00 Kenyon Ayoub - FREE T4 Rivera External HCG, BETA SUBUNIT, QNT 2022-11-22 21:44:00 Kenyon Ayoubold - Rivera External LUMBAR SPINE 2 VIEWS 2022-06-19 15:10:25 Kenyon Ayoubold - Rivera External HIPS BILATERAL 2022-06-19 15:09:45 Kenyon Ayoub ld - Rivera External Plan of Care Planned Activity Planned Date Details Comments Source Future Scheduled 2022-10-27 COVID-19 VACCINE (#1) [facility] Test 18:38:18 [code = COVID-19 VACCINE (#1)] Future Scheduled 2022-10-27 [facility] Test 18:38:18 Chlamydia trachomatis (procedure) [code = 840734410] Future Scheduled 2022-10-27 [facility] Test 18:38:18 malignant neoplasm of cervix (procedure) [code = 192908493] Future Scheduled 2022-10-27 [facility] 18:38:18 [code = INFLUENZA VACCINE] Future Scheduled 2021-11-02 [facility]19 [facility] ([facility] 05:57:10 [code = COVID-19 VACCINE (1)] Future Scheduled 2021-11-02 [facility]LAMYDIA SCREENING [facility] 05:57:10 [code = CHLAMYDIA SCREENING] Future Scheduled 2021-11-02 Hepatitis C screening [facility] Test 05:57:10 (procedure) [code = 599994327] Future Scheduled 2021-11-02 Scre[facility] Test 05:57:10 malignant neoplasm of cervix (procedure) [code = 781281721] Future Scheduled 2021-11-02 [facility]ZA [facility]ACCINE [facility] 05:57:10 [code = INFLUENZA VACCINE] Encounters Start End Encounter Admission Attending Care Care Encounter Source Date/Time Date/Time Type Type Clinicians Facility Department ID 2021-05-26 Emergency [facility] [id number] Univers 18:53:43 ity [facility] 2021-05-26 Emergency [facility] [id number] Univers 10:16:26 ity [facility] 2021-05-26 Emergency [facility] [id number] Univers 06:11:14 ity [facility] 2021-05-25 Emergency [facility] [id number] Univers 21:15:47 ity [facility] 2022-12-20 2022-12-20 Outpatient LINDA MURPHY [id number] Linda 14:15:00 14:15:00 AMIRHOSSEIN Se ybold 2022-12-06 2022-12-06 Outpatient LINDA HEARD [id number] Linda 13:10:00 13:10:00 AWAIS Seybol d 2022-11-27 2022-11-27 Outpatient LINDA BETANCUR [id number] Linda 00:00:00 00:00:00 Seybol d 2022-11-23 2022-11-23 Outpatient LINDA AYOUB [id number] Linda 00:00:00 00:00:00 KENYON Seybol d 2022-11-23 2022-11-23 Outpatient LINDA MURPHY [id number] Linda 00:00:00 00:00:00 AMIRHOSSEIN Se ybold 2022-11-22 2022-11-22 Outpatient LAB47 LINDA BETANCUR [id number] Linda 16:45:00 16:45:00 Seybol d 2022-11-22 2022-11-22 Outpatient ROSAAMRIT LINDA BETANCUR [id number] Linda 16:00:00 16:00:00 KENYON Seybol d 2022-11-08 2022-11-08 Outpatient LINDA ORTEGA [id number] Linda 00:00:00 00:00:00 VALENTINO Seybol d 2022-11-08 2022-11-08 Outpatient ROSAAMRIT LINDA BETANCUR [id number] Linda 00:00:00 00:00:00 KENYON Seybol d 2022-11-07 2022-11-07 Outpatient LINDA ORTEGA [id number] Linda 10:00:00 10:00:00 VALENTINO Seybol d 2022-10-29 2022-10-29 Outpatient LINDA SAXENA [id number] Linda 08:00:00 08:00:00 YOLANDA Seybol d 2022-10-26 2022-10-26 Outpatient LINDA ORTEGA [id number] Linda 00:00:00 00:00:00 VALENTINO Seybol d 2022-10-10 2022-10-10 Outpatient LINDA ORTEGA [id number] Linda 00:00:00 00:00:00 VALENTINO Seybol d 2022-10-10 2022-10-10 Outpatient LINDA PENALOZA [id number] Linda 00:00:00 00:00:00 SONAM Seybol d 2022-10-09 2022-10-09 Outpatient LINDA MÁRQUEZ [id number] Linda 15:00:00 15:00:00 OLIVER Seybo ld 2022-10-08 2022-10-08 Outpatient LINDA LISA [id number] Linda 14:45:00 14:45:00 TEODORA Seybo ld 2022-09-26 2022-09-26 Outpatient LINDA ORTEGA [id number] Linda 00:00:00 00:00:00 AVLENTINO Seybol d 2022-09-03 2022-09-03 Outpatient LAB47 LINDA BETANCUR [id number] Linda 16:05:00 16:05:00 Seybol d 2022-09-03 2022-09-03 Outpatient EMELYN LINDA BETANCUR [id number] Linda 14:45:00 14:45:00 KENYON Seybol d 2022-08-22 2022-08-22 Outpatient BRIANLINDA ANTOINE [id number] Linda 00:00:00 00:00:00 VALENTINO Seybol d 2022-08-22 2022-08-22 Outpatient JORDAN LINDA BETANCUR [id number] Linda 00:00:00 00:00:00 VALENTINO Seybol d 2022-08-20 2022-08-20 Outpatient LINDA BETANCUR [id number] Linda 11:15:00 11:15:00 Seybol d 2022-07-16 2022-07-16 Outpatient LINDA ORTEGA [id number] Linda 08:45:00 08:45:00 VALENTINO Seybol d 2022-07-13 2022-07-13 Outpatient RIOSMARYJANE PAGAN LINDA BETANCUR [id number] Linda 11:45:00 11:45:00 Seybol d 2022-07-13 2022-07-13 Outpatient LINDA PEDRAZA [id number] Linda 00:00:00 00:00:00 JOHN Seybol d 2022-07-13 2022-07-13 Outpatient LINDA PEDRAZA [id number] Linda 00:00:00 00:00:00 JOHN Seybol d 2022-07-13 2022-07-13 Outpatient LINDA MÁRQUEZ [id number] Linda 00:00:00 00:00:00 OLIVER Seybo ld 2022-06-26 2022-06-26 Outpatient LINDA MÁRQUEZ [id number] Linda 08:30:00 08:30:00 OLIVER Seybo ld 2022-06-25 2022-06-25 Outpatient LINDA AYOUB [id number] Linda 00:00:00 00:00:00 KENYON Seybol d 2022-06-19 2022-06-19 Outpatient LINDA BETANCUR [id number] Linda 09:05:00 09:05:00 Seybol d 2022-06-19 2022-06-19 Outpatient LINDA BETANCUR [id number] Linda 09:00:00 09:00:00 Seybol d 2022-06-19 2022-06-19 Outpatient LINDA AYOUB [id number] Linda 08:15:00 08:15:00 KENYON Seybol d 2022-04-23 2022-04-23 Outpatient LINDA PERAZA [id number] Linda 08:00:00 08:00:00 SHANNON Seybol d 2022-04-19 2022-04-19 Outpatient [id number] LINDA BETANCUR [id number] Linda 14:15:00 14:15:00 Seybol d 2022-04-19 2022-04-19 Outpatient TESTING, LJ LINDA BETANCUR [id number] Linda 14:00:00 14:00:00 Seybol d 2022-04-19 2022-04-19 Outpatient [id number] LINDA BETANCUR [id number] Linda 13:55:00 13:55:00 Seybol d 2022-04-19 2022-04-19 Outpatient LINDA LEW [id number] Linda 11:15:00 11:15:00 TEJAL Seybol d 2022-04-19 2022-04-19 Outpatient LINDA LEW [id number] Linda 00:00:00 00:00:00 TEJAL Seybol d 2022-04-09 2022-04-09 Outpatient LINDA PERAZA [id number] Linda 00:00:00 00:00:00 SHANNON Seybol d 2022-03-16 2022-03-16 Office KETURAH BLACK 1.2.840.114 [id number] Linda 14:30:00 14:30:00 Visit ATOKA [id number] Se ybold 1.2.7.2.686 [id number] 2022-02-08 2022-02-08 Outpatient LINDA BETANCUR [id number] Linda 09:25:00 09:25:00 Seybol d 2022-02-08 2022-02-08 Outpatient LAB47 LINDA BETANCUR [id number] Linda 09:20:00 09:20:00 Seybol d 2022-02-08 2022-02-08 Outpatient [id number] LINDA BETANCUR [id number] Linda 09:15:00 09:15:00 Seybol d 2022-02-08 2022-02-08 Office ASHLEY Peraza 1.2.840.114 [id number] Linda 08:30:00 09:00:00 Visit Shannon Rojas 350.1.13.13 Seybold 1.2.7.2.686 [id number] 2022-01-02 2022-01-02 Outpatient INJ, LINDA BETANCUR [id number] Linda 08:00:00 08:00:00 ASHLEY favian ld 2022-01-01 2022-01-01 Outpatient INJ, LINDA BETANCUR [id number] Linda 08:00:00 08:00:00 ASHLEY favian randhawa 2021-12-29 2021-12-29 Outpatient INJ, LINDA BETANCUR [id number] Linda 09:00:00 09:00:00 ASHLEY favian randhawa 2021-12-15 2021-12-15 Outpatient HARRIS, LINDA BETANCUR [id number] Linda 00:00:00 00:00:00 PEYMAN Seybol d 2021-12-04 2021-12-04 Outpatient Jazmin ARVIZU [facility] [id number] Univers 10:30:00 10:30:00 KRISTINE itnino [facility] 2021-09-02 2021-09-02 Laboratory Only, Adc Test [facility] 1.2.840. [id number] Univers 11:45:00 12:00:00 [facility] [id number] [address] 2021-09-02 2021-09-02 Outpatient Jazmin RIOS [facility] [id number] Univers 11:45:00 11:45:[address] [facility] 2021-09-02 2021-09-02 ELLIOT Velazquez 1.2.840.114 [id number] Univers 00:00:00 00:00:00 (Out) Alexia MARQUES 350.1.13.10 it [facility] 4.2.7.2.686 Manjinder as [phone] [address] 2021-08-31 2021-08-31 Clinical Services Specialist Only, Adc Pob2 Test [facility] 1.2 .840.114 [id number] Univers 16:15:00 16:15:00 Visit Aryan Vasquez 350.1.13 .10 itnino [facility] [phone] [place] [address] [facility] 2021-08-31 2021-08-31 Outpatient Jazmin VASQUEZ [facility] [id number] Univers 16:15:00 15:58:[address] [facility] 2021-07-10 2021-07-10 Outpatient R LUH [facility] [id number] Univers 10:00:00 10:27:[address] [facility] 2021-07-10 2021-07-10 Office Luh [facility] [id number] Univers 09:57:32 10:27:50 Visit Kristine [place] 350.1.13.10 i ty [facility] [place] [phone] [place] [address] [facility] 2021-07-03 2021-07-03 Outpatient Jazmin NEELY [facility] [id number] Univers 09:30:00 09:30:00 ady VALENTIN [facility] 2021-07-03 2021-07-03 Outpatient Jazmin VASQUEZ [facility] [id number] Univers 08:00:00 08:00:[address] [facility] 2021-07-03 2021-07-03 Imm/Inj Nurse, Adc Pob Immunization [facility] 1.2.840.114 [id number] Univers 07:53:18 07:53:44 Visit Pedro Aryanmau [place] 350.1.13 .10 ity of [place] [id number] [place] N[place] [address] [facility] 2021-06-12 2021-06-12 Imm/Inj Vaccine, Fredi Syed [facility] [place] 1.2.840.114 [id number] Univers 13:24:16 13:34:16 Visit Sophia Howard 350.1.13.10 [place] [facility] [phone] [facility] [address] [place] 2021-06-12 2021-06-12 Outpatient R LEE [facility] [id number] Univers 13:30:00 13:30:00 , SOPHIA garsia [facility] 2021-02-09 2021-02-09 Outpatient R LUH [facility] [id number] Univers 16:00:00 16:00:00 KRISTINE garsia [facility] 2021-02-09 2021-02-09 [facility] 1.2.840.114 [id number] Univers 08:34:56 09:04:56 ne Visit Kristine [place] 350.1.13.10 [place] [phone] [place] [facility] [address] [facility] 2021-01-24 2021-01-24 Telephone [facility] 1.2.840.114 [id number] Univers 00:00:00 00:00:00 Kristine [place] 350.1.13.10 i [place] [phone] [place] [address] [facility] 2021-01-12 2021-01-12 Telephone [facility] 1.2.840.114 [id number] Univers 00:00:00 00:00:00 Kristine [place] 350.1.13.10 [place] [phone] [place] [address] 2020-12-01 2020-12-01 Office MolinaFormerly [facility] 1.2.019.044 [id number] Univers 09:24:27 10:05:00 Visit Kristine [place] 350.1.13.10 i [place] [phone] [place] dic[address] 2020-12-01 2020-12-01 Outpatient R LUH [facility] [id number] Univers 09:30:00 09:30:[address] [facility] 2020-11-24 2020-11-24 Outpatient ZAHIDA TAYLOR [facility] [id number] Univers 08:00:00 [facility] 2020-11-03 2020-11-03 Office [facility] 1.2.303.486 [id number] Univers 12:49:27 13:46:06 Visit Kristinelori [place] 350.1.13.10 [place] [phone] [address] 2020-11-03 2020-11-03 Outpatient R LUH [facility] [id number] Univers 13:00:00 13:00:00 [facility] 2020-11-03 2020-11-03 Orders Doctor ZARATE 1.2.840.114 [id number] Univers 00:00:00 00:00:00 Only Unassigned, JERALD 350.1.13.10 [facility] [facility] [place] [facility] 4.2.7.2.686 Manjinder as [phone] [address] 2020-10-19 2020-10-19 Outpatient ZAHIDA TAYLOR [facility] [id number] Univers 14:45:00 14:45:00 [facility] 2020-10-08 2020-10-08 Outpatient Jazmin RIOS [facility] [id number] Univers 08:45:00 08:45:[address] [facility] 2020-10-05 2020-10-05 Outpatient ZAHIDA TAYLOR [facility] [id number] Univers 15:30:00 15:30:00 ity [facility] 2020-09-30 2020-09-30 [facility] [id number] Univers 08:45:00 08:45:00 CHINYERE ity [facility] 2020-09-28 2020-09-28 Orders Doctor ZARATE [id number] Univers 00:00:00 00:00:00 Only Unassigned, JERALD [id number] ity of [employer] [facility] [id number] Manjinder as [phone] [facility] [address] [place] 2020-09-26 2020-09-26 [facility] [id number] Univers 16:41:05 23:59:00 Encounter Kristine [place] [id number] [place] [id number] [phone] [address] [place] 2020-09-26 2020-09-26 [facility] [id number] Univers 00:00:00 00:00:00 KRISTINE garsia [facility] 2020-09-26 2020-09-26 Orders Doctor ZARATE [id number] Univers 00:00:00 00:00:00 Only Unassigned, JERALD 350.1.13.10 ity of [employer] [facility] 4.2.7.2.686 Manjinder as [phone] [address] 2020-09-26 2020-09-26 Orders Doctor ZARATE 1.2.840.114 [id number] 00:00:00 00:00:00 Only Unassigned, JERALD 350.1.13.10 [employer] [facility] 4.2.7.2.686 [phone] 2020-09-21 2020-09-21 Clinical Services Specialist Nicolas, Adc Lab Main [facility] 1.2.8 40.114 [id number] Univers 11:52:07 12:07:07 Visit Zahida Johnson 350.1.13.10 [place] [phone] [place] dical [address] 2020-09-21 2020-09-21 Clinical Services Specialist Vikash Valenzuela [facility] 1.2.840.114 [id number] 11:52:07 12:07:07 Visit Lab Main Jeannie 350.1.13.10 [place] 4.2.7.2.686 Professio [phone] [address] 2020-09-21 2020-09-21 Outpatient R ZAHIDA JOHNSON [facility] [id number] 58326 [facility] 12:00:00 12:00:00 ity of [facility] 2020-09-21 2020-09-21 [facility] 1.2.698.234 1024 0815 [facility] 00:00:00 00:00:00 Management Kristine [place] 350.1.13.10 [place] [phone] [place] dical [address] 2020-09-21 2020-09-21 Case Luh [facility] 1.2.406.929 5046 0815 00:00:00 00:00:00 Management Kristine [place] 350.1.13.10 [place] 4.2.7.2.686 Professio [phone] [address] 2020-09-20 2020-09-20 Office Luh [facility] 1.2.484.406 3945 7628 [facility] 14:13:34 15:06:36 Visit Kristine Quiroston 350.1.13.10 i [place] [phone] [place] dical [address] 2020-09-20 2020-09-20 Office Luh [facility] 1.2.978.597 6656 7628 14:13:34 15:06:36 Visit Kristine [place] 350.1.13.10 [place] 4.2.7.2.686 Professio [phone] [address] 2020-09-20 2020-09-20 Outpatient R LUH [facility] 57031 70483 Univers 14:15:00 14:15:00 KRISTINE ity of [facility] 2020-06-15 2020-06-15 Orders Doctor ELLIOT 1.2.840.114 [id number] Univers 00:00:00 00:00:00 Only Unassigned, JERALD 350.1.13.10 ity of [employer] [facility] 4.2.7.2.686 Manjinder as [phone] [address] 2020-06-14 2020-06-14 Patient Zahida Johnson [facility] 1.2.352.287 4062 3544 Univers 00:00:00 00:00:00 Secure Msg [place] 350.1.13.10 ity [place] [phone] [place] dic[address] 2020-06-11 2020-06-11 Outpatient R BLANCA [facility] [id number] Univers 07:30:00 07:30:00 CHINYERE ity [facility] 2020-06-11 2020-06-11 Orders Doctor ELLIOT 1.2.840.114 [id number] Univers 00:00:00 00:00:00 Only Unassigned, JERALD 350.1.13.10 ity of [employer] [facility] 4.2.7.2.686 Manjinder as [phone] [address] 2020-06-11 2020-06-11 Telephone ELLIOT Murdock 1.2.789.300 2617 5991 Univers 00:00:00 00:00:00 Leeannaryanne MARQUES 350.1.13.10 it y of HOSPITAL 4.2.7.2.686 Manjinder as [phone] [address] 2020-06-10 2020-06-10 Telephone Zahida Johnson [facility] 1.2.840.114 [id number] Univers 00:00:00 00:00:00 Blayne [place] 350.1.13.10 i [place] [phone] W[place] dical nal [address] [place] [address] 2020-05-24 2020-05-24 Office Zahida Johnson [facility] 1.2.440.435 4655 1551 Univers 11: 11:52:29 Visit Blayne [place] 350.1.13.10 i ty [place] [facility] [phone] [place] dical [address] 2020-05-24 2020-05-24 Outpatient Jazmin JOHNSONALECEN [facility] 87352 40285 Univers 11:00:00 11:00:00 ity of [facility] 2020-05-24 2020-05-24 Orders Doctor ZARATE 1.2.840.114 [id number] Univers 00:00:00 00:00:00 Only Unassigned, JERALD 350.1.13.10 ity of [employer] [facility] 4.2.7.2.686 Manjinder as [phone] [address] 2020-04-19 2020-04-19 Emergency [facility] 1.2.959.115 7979 0844 Univers 16:42:00 18:42:00 Joe [place] 350.1.13.10 i ty [place] [phone] [address] 2020-04-19 2020-04-19 Orders Doctor ZARATE 1.2.840.114 [id number] Univers 00:00:00 00:00:00 Only Unassigned, JERALD 350.1.13.10 ity of [employer] [facility] 4.2.7.2.686 Manjinder as [phone] [address] 2020-02-28 2020-02-29 Emergency [facility] 1.2.840.114 [id number] Univers 23:07:00 00:17:00 Sandy [place] 350.1.13.10 ity [place] [phone] [address] 2020-02-06 2020-02-06 Emergency Yaride, [facility] 1.2.088.721 8800 3765 Univers 14:52:06 18:51:00 Brooks [place] 350.1.13.10 [place]y [place] [phone] [address] 2019-12-13 2019-12-13 Emergency [facility] 1.2.352.632 [id number] 5266 Univers 18:13:53 19:47:00 Gian [place] 350.1.13.10 i ty [place] [phone] [facility] [address] [place] 2019-11-10 2019-11-10 Refill [facility] 1.2.840.114 [id number] Univers 00:00:00 00:00:00 Shanell S Health 350.1.13.10 it y of Surgical 4.2.7.2.686 Manjinder as Specialti [phone] Me dical es 198 [facility] 2019-10-20 2019-10-20 Telephone [facility] 1.2.735.366 1831 7315 Univers 00:00:00 00:00:00 Shanell S Health 350.1.13.10 it y of Surgical 4.2.7.2.686 Manjinder as Specialti [phone] [place] dical es 198 [facility] 2019-10-15 2019-10-15 [facility] [id number] Univers 13:29:40 23:59:00 SHANELL ity of [facility] 2019-10-15 2019-10-15 [facility] 1.2.840.114 [id number] 999 Univers 13:29:00 23:59:00 Encounter Shanell S Health 350.1.13.10 ity of Surgical 4.2.7.2.686 Manjinder as Specialti [phone] Me dical es 809 [facility] 2019-10-15 2019-10-15 Office [facility] 1.2.840.114 [id number] Univers 13:24:44 13:48:36 Visit Shanell S Health 350.1.13.10 it y of Surgical 4.2.7.2.686 Manjinder as Specialti [phone] Me dical es 198 [facility] 2019-10-15 2019-10-15 Telephone [facility] 1.2.033.557 2046 8611 Univers 00:00:00 00:00:00 Shanell S Health 350.1.13.10 it y of Surgical 4.2.7.2.686 Manjinder as Specialti [phone] Me dical es 198 [facility] 2019-10-05 2019-10-05 Letter Luis Armando [facility] 1.2.840.114 [id number] Univers 00:00:00 00:00:00 (Out) [facility] 350.1.13.10 it y of Surgical 4.2.7.2.686 Manjinder as Specialti [phone] Me dical es 370 [facility] 2019-10-04 2019-10-04 Urgent Isidra Durán [facility] 1.2.840.114 [id number] Univers 18:42:40 19:03:37 Care Unknown, Attending Health 350.1.13.10 ity of Surgical 4.2.7.2.686 Manjinder as Specialti [phone] Me dical es 370 [facility] 2019-10-04 2019-10-04 Outpatient R UNKNOWN, [facility] [id number] Univers 18:45:00 18:45:00 ATTENDING ity of [facility] 2019-09-16 2019-09-16 Office [facility] 1.2.840.114 [id number] 811 Univers 15:25:32 16:48:53 Visit [facility] Women's 350.1.13.10 it y of [place].2.686 [place] [phone] [facility] in [address] [place] [address] 2019-09-03 2019-09-03 Patient [facility] 1.2.840.114 [id number] Univers 00:00:00 00:00:00 Secure Msg [facility] Women's 350.1.13.10 ity of [facility] 4.2.7.2.686 [place] [phone] [facility] in [address] [place] [address] 2019-08-31 2019-08-31 Hospital [facility] 1.2.207.468 6124 4493 Univers 09:48:00 23:59:00 Encounter [facility] Health 350.1.13.10 ity of [place]2.[place].2.686 [place] Rai [phone] [facility] [address] [place] ([facility]) 2019-08-31 2019-08-31 Office [facility] 1.2.840.114 [id number] Univers 07:16:54 08:39:17 Visit Radha Sarah's 350.1.13.10 it y of [facility] 4.2.7.2.686 [place] [phone] Medi nadia in [address] [place] [address] 2019-08-31 2019-08-31 Telephone [facility] 1.2.840.114 [id number] Univers 00:00:00 00:00:00 Radha Robbinss 350.1.13.10 it y of [facility] 4.2.7.2.686 [place] [phone] [facility] in [address] [place] [address] 2019-08-31 2019-08-31 Telephone [facility] 1.2.840.114 [id number] [id number] Univers 00:00:00 00:00:00 Radha Sarah's 350.1.13.10 it y of Health[facility] 4.2.7.2.686 [place] [phone] [facility] in [address] [place] [address] 2019-08-12 2019-08-12 Outpatient [facility] 29 [id number] Common 13:22:00 13:22:[address] [facility] Family Medicine [facility] 2019-04-11 2019-04-12 Emergency Sarah, James [facility] 1.2.840.114 [id number] Univers 22:08:04 00:40:00 Health 350.1.13.10 it y of [place] 4.2.7.2.686 Manjinderabe león [place] [phone] [facility] [address] ([facility]) 2019-04-11 2019-04-11 Nurse Nurse, Manjinder Urgent [facility] 1.2.840. 114 [id number] Univers 20:55:09 21:10:09 Visit Unknown, Attending HEALTH 350.1.13.10 ity of [place] 4.2.7.2.686 [facility] [phone] [facility] Primary & [address] Specialty Care 2019-04-11 2019-04-11 Orders Doctor ZARATE 1.2.840.114 [id number] Univers 00:00:00 00:00:00 Only Unassigned, JERALD 350.1.13.10 ity of [employer] [facility] 4.2.7.2.686 Manjinder [phone] [facility] [address] 2019-04-09 2019-04-09 Emergency Cass[facility]Formerly [facility] 1.2.216.533 4795 8259 Univers 19:45:13 21:32:00 Brooks [place] 350.1.13.10 ity of [place]2.7.2.686 [place] [phone] [facility] [address] 2019-04-09 2019-04-09 Orders Doctor ELLIOT 1.2.840.114 [id number] Univers 00:00:00 00:00:00 Only Unassigned, JERALD 350.1.13.10 ity of [employer] [facility] 4.2.7.2.686 Manjinder as [phone] [facility] [address] 2019-03-25 2019-03-25 Transition Grant, Adinmil 1.2.840.114 [id number] 64898 Univers 00:00:00 00:00:00 of Care Estefanía Burrows 350.1.13.10 i ty of [place] 4.2.7.2.686 [place] [phone] [facility] [address] 2019-03-25 2019-03-25 Orders Doctor ELLIOT 1.2.840.114 [id number] Univers 00:00:00 00:00:00 Only Unassigned, JERALD 350.1.13.10 ity of [employer] [facility] 4.2.7.2.686 Manjinder as [phone] [facility] [address] 2019-03-23 2019-03-24 [facility] 1.2.840.114 [id number] 758 Univers 12:20:33 13:38:00 Encounter Che J Health 350.1.13.10 ity [place] Rai [phone] [facility] [address] ([facility]) 2019-03-20 2019-03-20 Emergency [facility] 1.2.662.525 5037 4380 Univers 13:09:21 16:56:00 Vika Health 350.1.13.10 it y of [place] Rai [phone] [facility] [address] ([facility]) 2019-03-15 2019-03-17 Hospital Jory Luis [facility] 1.2.84 0.114 [id number] Univers 18:47:40 18:38:00 Encounter Alfredo Anaya [facility] 350.1.13. 10 ity [place] Rai [phone] [facility] [address] ([facility]) 2019-02-26 2019-02-26 Outpatient [facility] [id number] Common 10:00:00 10:00:[address] [facility] 2019-02-20 2019-02-20 Office [facility] 1.2.840.114 [id number] 90 [facility] 11:06:46 11:21:46 Visit [facility] 350.1.13.10 it y of Surgical 4.2.7.2.686 Manjinder as Specialti [phone] W[place] dical 198 [facility] 2019-01-14 2019-01-14 Outpatient [facility] 26 [id number] Common 10:00:00 10:00:[address] [facility] 2018-08-04 2018-08-04 Outpatient [facility] 23 [id number] Common 14:30:00 14:30:[address] [facility] 2018-03-26 2018-03-26 Outpatient [facility] 15 [id number] Common 13:45:00 13:45:[address] [facility] 2018-01-08 2018-01-08 Out[facility] 14 [id number] Common 11:30:00 11:30:[address] [facility] 2017-11-25 2017-11-25 Outpatient [facility] 13 [id number] Common 13:00:00 13:00:[address] [facility] 2017-10-14 2017-10-14 Outpatient [facility] 13 [id number] Common 11:15:00 11:15:[address] [facility] 2017-10-14 2017-10-14 Outpatient Yaz Jasmine 13 [id number] Common 09:22:00 09:22:00 [facility] it MOAEC [facility] Results Test Description Test Time Test Comments Results Result Sour e Comments - DUP AB/PEL/SC/LTD 2019-06-24 Patient Name: 22:15:00 LUDWIG MONTANEZ Unit No: [id number] EXAMS: CPT CODE: [id number] DUP AB/PEL/SC/LTD 42031 PROCEDURE: PELVIC ULTRASOUND INDICATION: Left lower quadrant [...] Inga Vega RDMS Probe: Trnscrbd D/ (2215) t.SDR.SG9 Orig Print D/T: S: 06/24/2019 (7950) [facility] NAME: LUDWIG MONTANEZ Radiology Department PHYS: Kenzie Banda [address] : 2000 AGE: 19 SEX: F [place], [place] [address] LOC: F.ERS PHONE #: [phone] EXAM DATE: 06/24/2019 STATUS: REG ER FAX #: [phone] RAD NO: Page 1 Signed Report Patient Name: LUDWIG MONTANEZ Unit No: [id number] EXAMS: CPT CODE: [id number] DUP AB/PEL/SC/LTD 19797 (Continued) [facility] NAME: LUDWIG MONTANEZ Radiology Department PHYS: Kenzie Banda [address] : 2000 AGE: 19 SEX: F [place], [place] [address] LOC: MAGGI PHONE #: [phone] EXAM DATE: 06/24/2019 STATUS: REG ER FAX #: [phone] RAD NO: Page 2 Signed Report - US TRANSVAGINAL 2019-06-24 Patient Name: W/PELVIS 22:15:00 LUDWIG MONTANEZ Unit No: [id number] EXAMS: CPT CODE: [id number] US TRANSVAGINAL W/PELVIS 32107 PROCEDURE: PELVIC ULTRASOUND INDICATION: Left lower quadrant [...] IMPRESSION: Normal pelvic ultrasound. SL: SG-H at 5931 Reported and signed by: Rojas Galindo MD CC: Franco Swan MD Technologist: Inga Vega RDMS Probe: [id number] Trnscrbd D/ (2215) t.ISIR.SG9 Orig Print D/T: S: 06/24/2019 (2218) [facility] [place] [facility] NAME: LUDWIG MONTANEZ Radiology Department PHYS: Kenzie Banda ro [address] : 2000 AGE: 19 SEX: F [place], [place] [address] LOC: EdwardERS PHONE #: [phone] EXAM DATE: 06/24/2019 STATUS: REG ER FAX #: [phone] RAD NO: Page 1 Signed Report Patient Name: LUDWIG MONTANEZ Unit No: [id number] EXAMS: CPT CODE: [id number] US TRANSVAGINAL W/PELVIS 50691 (Continued) [facility] NAME: LUDWIG MONTANEZ Radiology Department PHYS: Kenzie Banda ro [address] : 2000 AGE: 19 SEX: F [place] [address] LOC: MAGGI PHONE #: [phone] EXAM DATE: 06/24/2019 STATUS: REG ER FAX #: [phone] RAD NO: Page 2 Signed Report - US PELVIS 2019-06-24 Patient Name: COMPLETE 22:15:00 LUDWIG MONTANEZ Unit No: [id number] EXAMS: CPT CODE: [id number] US PELVIS COMPLETE 29910 PROCEDURE: PELVIC ULTRASOUND INDICATION: Left lower quadrant [...] Inga Vega RDMS Probe: Trnscrbd D/ (2215) t.SDR.SG9 Orig Print D/T: S: 06/24/2019 (9067) [facility] PHYS: MARCELLA Kenzie Swan ro [address] : 2000 AGE: 19 SEX: F [place] [address] LOC: MAGGI PHONE #: [phone] EXAM DATE: 06/24/2019 STATUS: REG ER FAX #: [phone] RAD NO: Page 1 Signed Report Patient Name: LUDWIG MONTANEZ Unit No: [id number] EXAMS: CPT CODE: [id number] US PELVIS COMPLETE 49777 (Continued) [facility] Department PHYS: NENARA Giron Kathy-Shamir Espitiai ro [address] : 2000 AGE: 19 SEX: F [place] [address] LOC: EdwardERS PHONE #: [phone] EXAM DATE: 06/24/2019 STATUS: REG ER FAX #: [phone] RAD NO: Page 2 Signed Report DRUGS [...] ng/mL PHENCU) UA RFLX MICR CULT IF [id number] 21:57:00 Test Item Value Reference Range Interpretation [...] RARE-FEW Indication for culture: Suprapubic PainUR HCG [id number] 21:55:00 Test Item Value Reference Range Interpretation [...] 48 hours later and tested. COMPREHENSIVE METABOLIC [id number] 21:46:00 Test Item Value Reference Range Interpretation [...] 46-116 N code = ALKP) CBC W/AUTO [id number] 21:41:00 Test Item Value Reference Range Interpretation [...] = PLTMR) - MRI LW JNT W/CONTRAST [id number] 13:59:00 Patient Name: LUDWIG MONTANEZ Unit No: [id number] EXAMS: CPT CODE: [id number] MRI LW JNT W/CONTRAST [id number] RIGHT HIP ARTHROGRAM AND MARCAINE INJECTION DIAGNOSIS: No definite abnormality. COMMENT: COMPARISON: No prior exams available. After informed consent was obtained a single-contrast arthrogram wasperformed with equal parts Isovue-300 and dilute gadolinium by . 0.6 minutes of fluoroscopytime was utilized. The normal recesses were opacified. An AP radiograph was obtained. Subsequently 2mL of 0.75% Marcaine was injected into the [...] No evidence of ischiofemoral impingement. Tendons: Visualized gl uteal and hamstring tendons are maintained. Bursitis: No significant trochanteric or iliopsoas bursitis. Muscles: Signal intensity and volume are preserved. [facility] NAME: LUDWIG MONTANEZ [address] [facility] PHYS: Anibal Leslie Zamar : 2000 AGE: 19 SEX: F [place] [address] LOC: Y.RAD PHONE #: [phone] EXAM DATE: 04/22/2019 STATUS: REG CLI FAX #: [phone] RAD #: D/C DT PAGE 1 Signed Report (CONTINUED) Patient Name: LUDWIG MONTANEZ Unit No: [id number] EXAMS: CPT CODE: [id number] [place] LW JNT W/[place] [address] <Continued> Other: Parti ally visualized intrapelvic structures are unremarkable. IMPRESSION: Pincer-type impingement with labral tearing and a labral cyst [id number] Reported and signed by: Elliott Rajput MD CC: Anibal Cruz MD; Pipo Frye Technologist: Joshua Novak(R) Transcribed D/ (1359) tMANJINDER [facility] NAME: LUDWIG MONTANEZ [address] [facility] PHYS: Anibal Leslie Sherie : 2000 AGE: 19 SEX: F [place] [address] LOC: Y.RAD PHONE #: [phone] EXAM DATE: 04/22/2019 STATUS: REG CLI FAX #: [phone] RAD #: D/C DT PAGE 2 Signed Report Patient Name: LUDWIG MONTANEZ Unit No: [id number] EXAMS: CPT CODE: [id number] MRI LW JNT W/[place] [address] <Continued> Orig Print D/T: S: 04/22/2019 (1402) [facility] NAME: LUDWIG MONTANEZ [address] PHYS: Anibal Leslie : 2000 AGE: 19 SEX: F [place], [place] [address] LOC: Y.RAD PHONE #: [phone] EXAM DATE: 04/22/2019 STATUS: REG CLI FAX #: [phone] RAD #: D/C DT PAGE 3 Signed Report- XR ARTHROGRAM HIP W/O AN RT+2019-04-22 13:59:00 Patient Name: LUDWIG MONTANEZ Unit No: [id number] EXAMS: CPT CODE: [id number] XR ARTHROGRAM HIP W/O ANRT+ 69581 RIGHT HIP ARTHROGRAM AND MARCAINE INJECTION DIAGNOSIS: No definite abnormality. COMMENT: COMPARISON: No prior exams available. After informed consent was obtained a single-contrast arthrogram was performed with equal parts Isovue-300 and dilute gadolinium by . 0.6 minutes of fluoroscopy time was utilized. The normal recesses were opacified. An AP radiograph was obtained. Subsequently 2 mL of 0.75% Marcaine was injected into the joint. No immediate complications were encountered.MRI OF THE RIGHT HIP POST ARTHROGRAPHY TECHNIQUE: [...] Tendons: Visualized gluteal and hamstring tendons are maintained. Bursitis: No significant trochanteric or iliopsoas bursitis. Muscles: Signal intensity and volume are preserved. [facility] NAME: LUDWIG MONTANEZ Sonal [facility] PHYS: Anibal Leslie Sherie : 2000 AGE: 19 SEX: F [place] [address] LOC: Y.RAD PHONE #: [phone] EXAM DATE: 04/22/2019 STATUS: REGCLI FAX #: [phone] RAD #: D/C DT PAGE 1 Signed Report (CONTINUED) Patient Name: LUDWIG MONTANEZ Unit No: [id number] EXAMS: CPT CODE: [id number] XR ARTHROGRAM HIP W/O AN RT+ 24494 <Continued> Other: Partially visualized intrapelvic structures are unremarkable. IMPRESSION: Pincer-type impingement with labral tearing and a labral cyst at 1359 Reported and signed by: Elliott Rajput MD CC: Anibal Cruz MD; Pipo Hare MD Technologist: Valencia Kan, RT.(R) Transcribed D/ (7955) t.KIRILL [facility] NAME: LUDWIG MONTANEZ [address] [place] [address] PHYS: PAULINAESTHER Giron AnthonyAnibal : 2000 AGE: 19 SEX: F [place], [place] [address] LOC: Y.RAD PHONE #: [phone] EXAM DATE: 04/22/2019 STATUS: REG CLI FAX #: [phone] RAD #: D/C DT PAGE 2 Signed Report Patient Name: LUDWIG MONTANEZ Unit No: [id number] EXAMS: CPT CODE: [id number] XR ARTHROGRAM HIP W/O AN RT+ 48349 <Continued> Orig Print D/T: S: 04/22/2019 (1402) [facility] NAME: LUDWIG MONTANEZ Sonal [facility] PHYS: Anibal Leslie : 2000 AGE: 19 SEX: F [place], [place] [address] LOC: SADE PHONE #: [phone] EXAM DATE: 04/22/2019 STATUS: REG CLI FAX #: [phone] RAD #: D/C DT PAGE 3 Signed ReportAG HLA [id number] 17:10:00 Test Item Value Reference Range Interpretation Comments AG HLA B-27 Negative () HLA-B*27 Negati veB27 allele (test code = interpretation for all loci based HLAB27) on IMGT/HLAdata base version 3.35This test w as developed and its performance characteristics determined by [facility]. It has not been cleared or approvedby [facility] Food and Drug Administration. HLA Lab CLIA ID Number [id number] test was performed using PCR (Polymerase ChainReaction)/ SSOP (Sequence Specific Oligon ucleotide Probes)techniqu e. SBT (Sequence Based Typing) a nd/or SSP(Sequence Specific Primer s) may be used as supplementalmet hods when necessary. Plea se contact HLA CustomerService at if you have any questions. Director of HLA Laboratory Dr Brett Kaufman, PhDPerformed At: 2Q [facility] [id number] [place], [place] [address]LfbfShae Mcclure PhD Ph:[phone] - MRI L-SPINE W/O [id number] 08:48:00 Patient Name: LUDWIG MONTANEZ Unit No: [id number] Report Has Been Amended EXAMS: CPT CODE: [id number] MRI L-SPINE W/O CONT 20270 Addendum - 04/08/2019 SIGNED 04/08/2019 ADDENDUM: [id number] MRI/MRILSPNWO Addendum: MRI of the lumbar spine dated April 07, 2019 is reviewed. The SI joints are included on this examination. Both the right and left SI joints are normal in appearance. Also diagnosed #6should read that there is a dextroscoliosis of the lower thoracic and proximal lumbar spine. Elect cynthiaically Signed by Angela Feliciano MD on 04/08/2019 at 0848 Reported and signed by: Angela [...] central canal or foraminal stenosis. 5. At L5- S1, no disc bulge or herniation. No central canal or foraminal stenosis. Mild bilateral facet arthropathy. 6. There is a dextroscoliosis of the proximal thoracic spine. 7. PARTIALLY VISUALIZED MULTISEPTATE CYST IS PRESENT ADJACENT TO THE ANTERIOR ASPECT OF THE RIGHT HIP SUGGESTIVE OF A PERILABRAL CYST POSSIBLY RELATED TO A RIGHT ACETABULAR LABRAL TEAR. THIS IS BEST SEEN ON AXIAL T2- WEIGHTED SEQUENCE IMAGES 45-48 45-48 45-48. THIS MAY BE FURTHER EVALUATED WITH MRI OF THE RIGHT HIP POST ARTHROGRAPHY IF CLINICALLY INDICATED. COMMENT: COMPARISON: No prior exams available. Sagittal T1, T2 and STIR and axial T1 and T2-weighted sequences are obtained of the lumbar spine. [facility] NAME: LUDWIG MONTANEZ [address] [facility] PHYS: Deb HardingCA : 2000 AGE: 19 SEX: F [place], [place] [address] LOC: Y.510 A PHONE #: [phone] EXAM DATE: 04/06/2019 STATUS: DIS IN FAX #: [phone] RAD #: D/C DT 04/07/2019 PAGE 1Signed Report (CONTINUED) Patient Name: LUDWIG MONTANEZ Unit No: [id number] Report Has Been Amended EXAMS: CPT CODE: [id number] MRI L-SPINE W/O CONT 41859 <Continued> The lumbar vertebrae are within normal limits in signal. The findings are as above. The conus is in the expected location. at 0953 Reported and signed by: Angela Feliciano MD CC: Anibal Cruz MD; Deb Kennedy MD; Pipo Hare MD Technologist: Joshua Morales(R) Transcribed D/ (0953) ParulGVG [facility] NAME: LUDWIG MONTANEZ [address] [place] [address] PHYS: Deb Harding MD : 2000 AGE: 19 SEX: F [place] [address] LOC: Y.510 A PHONE #: [phone] EXAM DATE: 04/06/2019 STATUS: DIS IN FAX #: [phone] RAD #: D/C DT 04/07/2019 PAGE 2 Signed Report Patient Name: LUDWIG MONTANEZ Unit No: [id number] Report Has Been Amended EXAMS: CPT CODE: [id number] MRI L-SPINE W/O CONT 73228 <Continued> Orig Print D/T: S: 04/07/2019 (1106) [facility] NAME: LUDWIG MONTANEZ [address] [place] [address] PHYS: Deb Harding MD : 2000 AGE: 19 SEX: F [place] [address] LOC: Y.510 A PHONE #: [phone] EXAM DATE: 04/06/2019 STATUS: DIS IN FAX#: [phone] RAD #: D/C DT 04/07/2019 PAGE 3 Signed Report- XR PELVIS 1/2 [id number] 13:41:00 Patient Name: LUDWIG MONTANEZ Unit No: [id number] EXAMS: CPT CODE: [id number] XR PELVIS 1/2 VIEWS [id number] PROVIDED: 1 FINDINGS: No acute fracture or [...] MD Technologist: AILEEN ORDOÑEZ. RT(R) Transcribed D/ (2781) t.[email or web address].[email or web address] [facility] NAME: LUDWIG MONTANEZ [address] [facility] PHYS: Deb Harding MD : 2000 AGE: 19 SEX: F [place] [address] LOC: Y.510 A PHONE #: [phone] EXAM DATE: 04/06/2019 STATUS: DIS IN FAX #: [phone] RAD #: D/C DT 04/07/2019 PAGE 1 Signed Report Patient Name: LUDWIG MONTANEZ Unit No: [id number] EXAMS: CPT CODE: [id number] XR PELVIS 1/2 VIEWS 76967 <Continued> Orig Print D/T: S: 04/07/2019 (1430) [facility] NAME: LUDWIG MONTANEZ [address] [facility] PHYS: Deb Harding MD : 2000 AGE: 19 SEX: F [place] [address] LOC: Y.510A PHONE #: [phone] EXAM DATE: 04/06/2019 STATUS: DIS IN FAX #: [phone] RAD #: D/C DT 04/07/2019 PAGE 2 Signed Report- MRI L-SPINE W/O [id number] 09:53:00 Patient Name: LUDWIG MONTANEZ Unit No: [id number] EXAMS: CPT CODE: [id number] MRI L-SPINE W/O CONT 93241 MRI OF THE LUMBAR SPINE: DIAGNOSIS: 1. At L1-2, no disc bulge or herniation. No central canal or foraminal stenosis. 2. 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 No central canal or foraminal stenosis. 3. 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 No central canal stenosis. No foraminal stenos is. 4. At L4-5, mild disc degeneration. Is a slight retrolisthesis of L4 and L5. No central canal orforaminal stenosis. 5. At L5-S1, no disc bulge or herniation. No central canal or foraminal stenosis. Mild bilateral facet arthropathy. 6. There is a dextroscoliosis of the proximal thoracic spine. 7.PARTIALLY VISUALIZED MULTISEPTATE CYST IS PRESENT ADJACENT TO THE ANTERIOR ASPECT OF THE RIGHT HIP SUGGESTIVE OF A PERILABRAL CYST POSSIBLY RELATED TO A RIGHT ACETABULAR LABRAL TEAR. THIS IS BEST SEEN ON AXIAL T2-WEIGHTED SEQUENCE IMAGES 45-48 45-48 45-48. THIS MAY BE FURTHER EVALUATED WITH MRI OF THERIGHT HIP POST ARTHROGRAPHY IF CLINICALLY INDICATED. COMMENT: COMPARISON: No prior exams available.Sagittal T1, T2 and STIR and axial T1 and T2-weighted sequences are obtained of the lumbar spine. The lumbar vertebrae are within normal limits in signal. The findings are as above. The conus is in the expected location. at 0953 Reported and signed by: Angela Feliciano MD CC: Anibal Cruz MD; Deb Kennedy MD; Pipo Hare MD Technologist: Joshua Novak(R) Transcribed D/ (0953) Caitlyn.GVG [facility] NAME: LUDWIG MONTANEZ [address] [facility] PHYS: Deb Harding MD : 2000 AGE: 19 SEX: F [place], [place] [address] LOC: Y.510 A PHONE #: [phone] EXAM DATE: 04/06/2019 STATUS: ADM IN FAX #: [phone] RAD #: D/C DT PAGE 1 Signed Report Patient Name: LUDWIG MONTANEZ Unit No: [id number] EXAMS: CPT CODE: [id number] MRI L- SPINE W/O CONT 54082 <Continued> Orig Print D/T: S: 04/07/2019 (1106) [facility] NAME: LUDWIG MONTANEZ [address] [facility] PHYS: Deb Harding MD : 2000 AGE: 19 SEX: F [place] [id number] LOC: Y.510 A PHONE #: [phone] EXAM DATE: 04/06/2019 STATUS: ADM IN FAX #: [phone] RAD #: D/C DT PAGE 2 Signed Report- MRI LW JNT W WO CONT [id number] 14:25:00 Patient Name: LUDWIG MONTANEZ Unit No: [id number] EXAMS: CPT CODE: [id number] [place] [address] TECHNIQUE: Multiplanar multisequence images of the right knee were obtained without the administration of intravenous contrast. COMPARISON STUDY: CT dated 03/16/2014 FINDINGS: Postoperative changes are demonstrated about the proximal right tibia with hyperintense tracts from previously removed hardware. Subcutaneous edema anterior to the tibial tuberosity is nonspecific. Small amount of fluid is pr esent as well. No organized abscess is identified. No osseous findings are seen to suggest osteomyelitis. No definite meniscal tear. ACL and PCL are intact. Collateral ligaments are maintained. Extensor mechanism is within normal limits. No high-grade cartilage loss. No significant joint effusion. IMPRESSION: Postoperative changes involving the proximal tibia with nonspecific edema and a small amount of fluid anterior to the tibial tuberosity. This is nonspecific and may be postoperative. Cellulitis is not excluded. No MR findings of osteomyelitis visualized. at 1420 Reported and signed by: Awais Kennedy M.D. CC: Anibal Cruz MD; Pipo Hare MD Technologist: RIZWAN ADAMS RT(R) Transcribed D/ (3872) Riana [facility] NAME: LUDWIG MONTANEZ [address] [facility] PHYS: Anibal Leslie : 2000 AGE: 19 SEX: F [place], [place] [address] LOC: Y.510 A PHONE #: [phone] EXAM DATE: 04/06/2019 STATUS: ADM IN FAX #: [phone] RAD #: D/C DT PAGE 1 Signed Report Patient Name: LUDWIG MONTANEZ Unit No: [id number] EXAMS: CPT CODE: [id number] [place] [address] <Continued> Orig Print D/T: S: 04/06/2019 (1428) [facility] NAME: LUDWIG MONTANEZ [address] [facility] PHYS: Anibal Leslie : 2000 AGE: 19SEX: F [place], [place] [address] LOC: Y.510 A PHONE #: [phone] EXAM DATE: 04/06/2019 STATUS: ADM IN FAX #: [phone] RAD #: D/C DT PAGE 2 Signed ReportBLOOD UREA [id number] 10:31:00 Test Item Value Reference Range Interpretation Comments BLOOD UREA NITROGEN (test code = BUN) 7 mg/dL 7-18 N CREATININE W ESTIMATED [id number] 10:31:00 Test Item Value Reference Range Interpretation Comments GLOMERULAR FILTRATION 105.6 >60 Unit o f measure: RATE (test code = GFR) mL/mi n/1.73 p5Lyaqwmtkd Range:Healthy A dults >90 mL/min/1.73 m2 For Chronic Kid lindsey Disease: Stage II Mild Decrease i n GFR 60-90 Stage III Moderate Decrea se in GFR 30-59 Stage IV Severe Decrease in GFR 15-29 Stage V Kidney Failure <15 CREATININE (test code = 0.70 mg/dL 0.55-1.30 N CREAT) SYNOVIAL FLD CELL [id number] 07:34:00 Test Item Value Reference Range Interpretation Comments SYNOVIAL FLD COLOR (test code = BLOODY () COLSY) SYNOVIAL FLD APPEARANCE (test code BLOODY () = APPSY) SYNOVIAL FLD WBC (test code = 0 /mm3 >0 WBCSY) SYNOVIAL FLD RBC (test code = 27575 /mm3 >0 RBCSY) SYNOVIAL FLD CELL [id number] 13:25:00 Test Item Value Reference Range Interpretation Comments SYNOVIAL FLD COLOR (test code = () COLSY) SYNOVIAL FLD APPEARANCE (test code () = APPSY) SYNOVIAL FLD WBC (test code = 0 /mm3 >0 WBCSY) SYNOVIAL FLD RBC (test code = 74288 /mm3 >0 RBCSY) SYNOVIAL FLD [id number] 13:24:00 Test Item Value Reference Range Interpretation Comments SYNOVIAL FLD COLOR (test code = COLSY) BLOODY SYNOVIAL FLD [id number] 13:24:00 Test Item Value Reference Range Interpretation Comments SYNOVIAL FLD APPEARANCE (test code = BLOODY APPSY) SYNOVIAL FLD [id number] 13:24:00 Test Item Value Reference Range Interpretation Comments SYNOVIAL FLD WBC (test code = WBCSY) 0 /mm3 >0 SYNOVIAL FLD [id number] 13:24:00 Test Item Value Reference Range Interpretation Comments SYNOVIAL FLD RBC (test code = 73068 /mm3 >0 RBCSY) SED [id number] 12:17:00 Test Item Value Reference Range Interpretation Comments SED RATE (test code = SEDW) 1 mm/hr 0-20 N SED [id number] 12:17:00 Test Item Value Reference Range Interpretation Comments SED RATE (test code = SEDW) 1 mm/hr 0-20 C REACTIVE [id number] 11:23:00 Test Item Value Reference Range Interpretation Comments C REACTIVE PROTEIN (test code = <0.2 mg/dL 0.6-1.2 L CRP) C REACTIVE [id number] 11:23:00 Test Item Value Reference Range Interpretation Comments C REACTIVE PROTEIN (test code = < 0.2 mg/dL 0.6-1.2 L CRP) - US PELVIS [id number] 11:44:00 Patient Name: LUDWIG MONTANEZ Unit No: [id number] EXAMS: CPT CODE: [id number] US PELVIS COMPLETE 42950 PELVIC ULTRASOUND, 12/02/2018: COMPARISON: October 14, 2017 CLINICAL HISTORY: Dysfunctional uterine bleeding TECHNIQUE: Transabdominal and endovaginal scanning was performed. FINDINGS: The uterus measures 5.3 x 2.1 x 3.0 cm. The endometrial stripe measured 7 mm. The endometrium is dynamic containing a probable blood clot. Endometrium is not hypervascular. No definite uterine fibroids were seen. The right ovary measures [...] CC: Elliot Malik III, MD Technologist: Sari Mcginnis RDMS Probe: Trnscrbd D/ (1144) t.[email or web address].AJ13 Orig Print D/T: S: 12/02/2018 (1148) [facility] NAME: LUDWIG ARELLANO Radiology Department PHYS: Elliot Morales III, MD [address] : 2000 AGE: 18SEX: F [place], [place] [address] LOC: Toshia.RAD PHONE #: [phone] EXAM DATE: 12/02/2018 STATUS: REG CLI FAX #: [phone] RAD NO: Page 1 Signed Report Patient Name: LUDWIG MONTANEZ Unit No: [id number] EXAMS: CPT CODE: [id number] US PELVIS COMPLETE 31694 (Continued) [facility] NAME: OSEASSRINIVASANBRYANTLUDWIG Radiology Department PHYS: Elliot Morales III, MD [address] : 2000 AGE: 18 SEX: F [place], [place] [address] LOC: EdwardRAD PHONE #: [phone] EXAM DATE: 12/02/2018 STATUS: REG CLI FAX #: [phone] RAD NO: Page 2 Signed Report- US TRANSVAGINAL [id number] 11:44:00 Patient Name: LUDWIG MONTANEZ Unit No: [id number] EXAMS: CPT CODE: [id number] US TRANSVAGINAL [id number] PELVIC ULTRASOUND, 12/02/2018: COMPARISON: October 14, 2017 CLINICAL HISTORY: Dysfunctional uterine bleeding TECHNIQUE: Transabdominal and endovaginal scanning was performed. FINDINGS: The uterus measures 5.3 x 2.1 x 3.0 cm. The endometrial stripe measured 7 mm. The endometrium is dynamic containinga probable blood clot. Endometrium is not hypervascular. No definite uterine fibroids were seen. Theright ovary measures 4.0 x 1.9 x 3.0 cm and contains several small subcentimeter follicles. The left ovary measures 3.3 x 1.8 x 2.0 cm and contains small subcentimeter follicles. Doppler flow is demonstrated in both ovaries. No free pelvic fluid. CONCLUSION: Presumed blood clot within the endometriumas described. at 1144 Reported and signed by: Josh Zapien MD CC: Elliot Malik III, MD Technologist: Sari Mcginnis [facility] Probe: [id number] Trnscrbd D/ (1141) [email or web address].AJ13 Orig Print D/T: S: 12/02/2018 (1141) [facility] NAME: FAYLUDWIG Radiology Department PHYS: Elliot Morales III, MD [address] : 2000 AGE: 18 SEX: F [place] [address] LOC: EdwardRAD PHONE #: [phone] DATE: 12/02/2018 STATUS: REG CLI FAX #: [phone] RAD NO: Page 1 Signed Report Patient Name: LUDWIG MONTANEZ Unit No: [id number] EXAMS: CPT CODE: [id number] US TRANSVAGINAL W/PELVIS 34697 (Continu ed) [facility] NAME: FAYLUDWIG Radiology Department PHYS: Elliot Morales III, MD [address] : 2000 AGE: 18 SEX: F [place], [place] [address] LOC: EdwardRAD PHONE #: [phone] EXAM DATE: 12/02/2018 STATUS: REG CLI FAX #: [phone] RAD NO: Page 2 Signed Report
[2022-11-28 01:15] LABS: Specific Gravity 1.015 (1.005-1.030); Urine Bilirubin NEGATIVE (Negative); Urine Blood Negative (Negative); Urine Clarity Clear (Clear); Urine Color Light-Yellow (Yellow); Urine Glucose NEGATIVE (Negative); Urine Protein NEGATIVE (Negative); Urine Urobilinogen Normal (Normal)
[2022-11-28 01:25] LABS: Specific Gravity 1.015 (1.005-1.030)
--- NOTE | 2022-11-28 01:50 | ER ---
Nurse's Notes [facility] Name: Arianne Montanez Age: 22 yrs Sex: Female : 2000 Arrival Date: 11/28/2022 Time: 00:37 Bed 20 Private MD: Diagnosis: Pelvic and perineal pain Presentation: 11/28 00:48 Chief complaint: Patient states: "I felt a lot of pressure in my lower abdomen and in vc1 my chest". Coronavirus screen: Vaccine status: Patient reports receiving the 2nd dose of the covid vaccine. Pfizer. Ebola Screen: Patient negative for fever greater than or equal to 101.5 degrees Fahrenheit, and additional compatible Ebola Virus Disease symptoms Patient denies exposure to infectious person. Patient denies travel to an Ebola-affected area in the 21 days before illness onset. No symptoms or risks identified at this time. Risk Assessment: Do you want to hurt yourself or someone else? Patient reports no desire to harm self or others. Onset of symptoms was November 27, 2022. 00:48 Method Of Arrival: Ambulatory vc1 00:48 Acuity: HENRI 4 vc1 01:56 Initial Sepsis Screen: Does the patient meet any 2 criteria? No. Patient's initial cg sepsis screen is negative. Does the patient have a suspected source of infection? No. Patient's initial sepsis screen is negative. 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 - Social history:: Smoking status: Patient denies any tobacco usage or history of. Screenin:55 [facility] ED Fall Risk Assessment (Adult) History of falling in the last 3 months, cg including since admission No falls in past 3 months (0 pts) Confusion or Disorientation No (0 pts) Intoxicated or Sedated No (0 pts) Impaired Gait No (0 pts) Mobility Assist Device Used No (0 pt) Altered Elimination No (0 pt) Score/Fall Risk Level 0 - 2 = Low Risk Oriented to surroundings, Educated pt \\T\\ family on fall prevention, incl call for assistance when getting out of bed, Assessed \\T\\ reinforced patient's understanding of fall precautions. Abuse screen: Denies threats or abuse. Denies injuries from another. Nutritional screening: No deficits noted. Tuberculosis screening: No symptoms or risk factors identified. Assessment: 01:27 General: Appears in no apparent distress. comfortable, Behavior is calm, cooperative. aa9 Pain: Denies pain. Neuro: Level of Consciousness is awake, alert, obeys commands, Oriented to person, place, time, situation. Cardiovascular: Patient's skin is warm and dry. Respiratory: Airway is patent Respiratory effort is even, unlabored. 01:55 Reassessment: Patient appears in no apparent distress at this time. Patient and/or cg family updated on plan of care and expected duration. Pain level reassessed. 01:56 Pain: Pain does not radiate. cg 01:57 Reassessment: Patient appears in no apparent distress at this time. Patient and/or cg family updated on plan of care and expected duration. Pain level reassessed. Patient states feeling better. Vital Signs: 00:48 Weight 84.37 kg; Height 5 ft. 7 in. ; vc1 00:52 BP 131 / 92; Pulse 92; Resp 16; Temp 98(O); Pulse Ox 97% ; vc1 01:57 BP 129 / 85; Pulse 72; Resp 19; Temp 98.5; Pulse Ox 99% on R/A; cg 00:48 Body Mass Index 29.13 (84.37 kg, 170.18 cm) vc1 ED Course: 00:41 Patient arrived in ED. mr 00:44 Jonatan Boyd PA is PHCP. jmm 00:44 Trenton Rangel MD is Attending Physician. jmm 00:51 Triage completed. vc1 00:51 Arm band placed on left wrist. vc1 00:55 Shira Ortez, JERMAN is Primary Nurse. aa9 01:20 Inserted saline lock: 20 gauge in right antecubital area, using aseptic technique. aa9 Blood collected. 01:20 Patient maintains SpO2 saturation greater than 95% on room air. aa9 01:26 Abo/rh Typing Sent. aa9 01:26 Basic Metabolic Panel Sent. aa 01:26 CBC with Diff Sent. aa 01:26 Urinalysis w/ reflexes Sent. aa9 01:27 Patient has correct armband on for positive identification. Bed in low position. Side aa9 rails up X2. Adult w/ patient. Warm blanket given. 01:34 Transvaginal OB In Process Unspecified. EDMS 01:56 Client placed on continuous cardiac and pulse oximetry monitoring. NIBP monitoring cg applied. 01:56 No provider procedures requiring assistance completed. IV discontinued, intact, cg bleeding controlled, No redness/swelling at site. Pressure dressing applied. Administered Medications: No medications were administered Medication: 01:56 VIS not applicable for this client. cg Outcome: 01:49 Discharge ordered by . [facility] 01:56 Discharged to home ambulatory, with friend. cg 01:56 Condition: stable 01:56 Discharge instructions given to patient, Instructed on discharge instructions, follow up and referral plans. Demonstrated understanding of instructions, follow-up care. 01:57 Patient left the ED. cg Signatures: Dispatcher [employer] EDMD Jonatan Boyd PA PA jmm Rivera, Mary mr Leeanna Etienne, JERMAN RN cg Sara Ríos RN RN vc1 Shira Ortez, JERMAN RN aa9 Corrections: (The following items were deleted from the chart) 00:51 00:51 Allergies: Tylenol; vc1 vc1
--- NOTE | 2022-11-28 01:50 | EDPHYS ---
Physician Documentation [facility] Name: Arianne Montanez Age: 22 yrs Sex: Female : 2000 Arrival Date: 11/28/2022 Time: 00:37 Bed 20 Private MD: ED Physician Trenton Rangel HPI: 11/28 01:05 This 22 yrs old Female presents to ER via Ambulatory with complaints of 9wks , jmm abd tightness, Chest Pain. 01:05 The estimated gestational age is 9 weeks. course: care: none. jmm Previous pregnancies: the patient has never been . This is a 22 year old that presents to the ED with complaints of pelvic pressure, tightness beginning approx 30 minutes to arrival. Patient felt a similar sensation to her chest. Symptoms are currently improving. 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 - Social history:: Smoking status: Patient denies any tobacco usage or history of. ROS: 01:05 Constitutional: Negative for fever, chills, and weight loss, Cardiovascular: Negative jmm for chest pain, palpitations, and edema, Respiratory: Negative for shortness of breath, cough, wheezing, and pleuritic chest pain. 01:05 Abdomen/GI: Positive for abdominal pain. 01:05 All other systems are negative. Exam: 01:05 Constitutional: This is a well developed, well nourished patient who is awake, alert, jmm and in no acute distress. Head/Face: atraumatic. Eyes: EOMI, no conjunctival erythema appreciated ENT: Moist Mucus Membranes Neck: Trachea midline, Supple Chest/axilla: Normal chest wall appearance and motion. Cardiovascular: Regular rate and rhythm. No edema appreciated Respiratory: Normal respirations, no respiratory distress appreciated Abdomen/GI: Non distended Back: Normal ROM Skin: General appearance color normal MS/ Extremity: Moves all extremities, no obvious deformities appreciated, no edema noted to the lower extremities Neuro: Awake and alert Psych: Behavior is normal, Mood is normal, Patient is cooperative and pleasant Vital Signs: 00:48 Weight 84.37 kg; Height 5 ft. 7 in. ; vc1 00:52 BP 131 / 92; Pulse 92; Resp 16; Temp 98(O); Pulse Ox 97% ; vc1 01:57 BP 129 / 85; Pulse 72; Resp 19; Temp 98.5; Pulse Ox 99% on R/A; cg 00:48 Body Mass Index 29.13 (84.37 kg, 170.18 cm) vc1 MDM: 00:45 Patient medically screened. [facility] 01:47 Differential diagnosis: ectopic . Data reviewed: vital signs, nurses notes, [facility] radiologic studies, ultrasound. Counseling: I had a detailed discussion with the patient and/or guardian regarding: the historical points, exam findings, and any diagnostic results supporting the discharge/admit diagnosis, radiology results, the need for outpatient follow up, to return to the emergency department if symptoms worsen or persist or if there are any questions or concerns that arise at home. ED course: Symptoms have resolved. Advised to follow up with ob. Otherwise givne strict return precautions. Patient understood and agrees with the plan of care. . 05 00:51 Order name: Abo/rh Typing [facility] 11/28 00:51 Order name: Basic Metabolic Panel [facility] 11/28 00:51 Order name: CBC with Diff [facility] 11/28 00:51 Order name: Test, Urine; Complete Time: 01:41 [facility] 11/28 00:51 Order name: Urinalysis w/ reflexes [facility] 11/28 01:26 Order name: Transvaginal OB [facility] 11/28 00:51 Order name: IV Saline Lock; Complete Time: 01: [facility] 11/28 00:51 Order name: Labs collected and sent; Complete Time: 01:26 [facility] 11/28 00:51 Order name: NPO; Complete Time: 01:26 [facility] Administered Medications: No medications were administered Disposition: 04:50 Co-signature as Attending Physician, Trenton Rangel MD I reviewed the patient's care rt provided by the Advanced Practice Provider and agree with the diagnosis and treatment plan. Disposition Summary: 11/28/22 01:49 Discharge Ordered Location: Home jm Condition: Stable jmm Diagnosis - Pelvic and perineal pain jmm Followup: jmm - With: Private Physician - When: Tomorrow - Reason: Recheck today's complaints, Continuance of care, Re-evaluation by your physician Discharge Instructions: - Discharge Summary Sheet jmm - First Trimester of jmm Forms: - Medication Reconciliation Form jmm - Thank You Letter jmm - Antibiotic Education jmm - Prescription Opioid Use jm Signatures: Dispatcher [employer] EDMS Jonatan Boyd PA PA jmm Calcote, Vanessa RN RN vc1 Trenton Rangel MD MD rt Corrections: (The following items were deleted from the chart) 00:51 00:51 Allergies: Tylenol; vc1 vc1 01:26 00:52 OB Limited+US.RAD.BRZ ordered. EDMS EDMS
[2022-11-28 02:06] LABS: Absolute Lymphocytes (CBC) 3.3 K/uL (0.7-4.9); Hematocrit 38.6 % (36.0-45.0); Lymphocytes % 24.9 % (15.3-44.8); MCV 88.5 fL (80-100); MPV 8.3 fL (7.6-11.3); RBC Red Blood Cell Count 4.36 M/uL (3.86-4.86)
[2022-11-28 02:09] VITALS: BP 129/85; TEMP 98.5; O2SAT 99
[2022-11-28 02:18] LABS: Potassium 3.3 mEq/L (3.5-5.1)
--- NOTE | 2022-11-28 11:36 | RAD REPORT ---
EXAM DESCRIPTION: US , Transvaginal CLINICAL HISTORY: The patient is 22 years old and is Female; pelvic pain TECHNIQUE: Real-time transvaginal obstetrical ultrasound of the maternal pelvis and a first trimeste r with image documentation. Transvaginal imaging was used for better evaluation of the fe tus and adnexa. COMPARISON: No relevant prior studies available. FINDINGS: GESTATION: A single intrauterine gestational sac and yolk sac are present. The gestation al sac correlates to approximately 5 weeks 5 days. A pole is not yet seen. PLACENTA/AMNIOTIC FLUID: Cannot be adequately evaluated due to the early gestational age. UTERUS/CERVIX: Unremarkable. No myometrial mass. OVARIES: Unremarkable. Normal arterial color Doppler and spectral waveform is present. No mass. FREE FLUID: No free fluid. IMPRESSION: Single intrauterine gestational sac and yolk sac correlating to 5 weeks 5 days. A pole is not yet seen. Findings suggest a very early intrauterine . Recommend continued follo w-up with serial hCG and ultrasound. Electronically signed by: Gosia Diaz MD 11/28/2022 2:14 AM CDT Due to temporary technical issues with the PACS/Fluency reporting system, reports are being signed by the in house radiologist without review as a courtesy to ensure prompt reporting. The interpreting r adiologist is fully responsible for the content of the report.
== END 2022-11-28 01:57 | disposition home or self-care (01) ==
LOC: ER 00:37
DX: O26.891 Other specified pregnancy related conditions, first trimester (principal); R10.2 Pelvic and perineal pain; Z3A.09 9 weeks gestation of pregnancy; Z88.0 Allergy status to penicillin; Z88.2 Allergy status to sulfonamides; Z88.3 Allergy status to other anti-infective agents; Z88.5 Allergy status to narcotic agent; Z88.6 Allergy status to analgesic agent
CPT/HCPCS: 36415; 76817; 80048; 81003; 81025; 85025; 86900; 86901; 99284

== ENCOUNTER 2023-01-27 18:06 | Emergency (ER) | payer OTHER ==
--- OUTSIDE RECORDS SUMMARY | 2023-01-27 18:12 | XMS REPORT | Continuity of Care Document ---
:2000 Author Organization [facility] t Address [address] [facility] [address] [place] [address] Care Team Providers Name Role Phone Asked, No Pcp Primary Care Physician Unavailable YUN TORRES Attending Clinician Unavailable EVELYN SUMMERS Attending Clinician Unavailable Lab, Ang - Db Attending Clinician Unavailable Evelyn Ahuja Attending Clinician EVELYN MCCORMACK Attending Clinician Unavailable [id number] Attending Clinician Unavailable NEREIDA LEE Attending Clinician Unavailable [id number], [id number] Attending Clinician Unavailable PL, TECH 1 Attending Clinician Unavailable MD SERENITY Attending Clinician Unavailable AWAIS HEARD Attending Clinician Unavailable KENYON AYOUB Attending Clinician Unavailable LISBET MURPHY Attending Clinician Unavailable [id number] Attending Clinician Unavailable VALENTINO ORTEGA Attending Clinician Unavailable YOLANDA SAXENA Attending Clinician Unavailable SONAM PENALOZA Attending Clinician Unavailable OLIVER MÁRQUEZ Attending Clinician Unavailable TEODORA LISA Attending Clinician Unavailable MARYJANE RIOS Attending Clinician Unavailable JOHN PEDRAZA Attending Clinician Unavailable OKSHANNON COELLO Attending Clinician Unavailable [id number] Attending Clinician Unavailable TESTING, LJ KULDIP FOSTER Attending Clinician Unavailable KALTEJAL WHITNEY Attending Clinician Unavailable KETURAH BLACK Attending Clinician Unavailable [id number] Attending Clinician Unavailable Rabia BARNES, Shannon Rojas Attending Clinician ASHLEY ANN Attending Clinician Unavailable PEYMAN HARRIS Attending Clinician Unavailable KRISTINE ARVIZU Attending Clinician Unavailable Only, Adc Test Attending Clinician Unavailable Chinyere Rios MD Attending Clinician CHINYERE RIOS Attending Clinician Unavailable Alexia Lawson RN Attending Clinician Unavailable Only, Adc Pob2 Test Attending Clinician Unavailable Aryan Vasquez DO Attending Clinician ARYAN VASQUEZ Attending Clinician Unavailable Kristine Arvizu PA-C Attending Clinician ANTOINETTE PATINO Attending Clinician Unavailable Nurse, Adc Pob Immunization Attending Clinician Unavailable Vaccine, Nunnelly Pedi Attending Clinician Unavailable Sophia Howard PA-C Attending Clinician SOPHIA HOWARD Attending Clinician Unavailable ZAHIDA JOHNSON Attending Clinician Unavailable Doctor Unassigned, [place] Attending Clinician Unavailable Pob, Adc Lab Main Attending Clinician Unavailable Zahida Johnson MD Attending Clinician Leeanna Murdock RN Attending Clinician Unavailable Joe Sow DO Attending Clinician Sandy Rollins DO Attending Clinician Brooks Platt MD Attending Clinician Gian Childers Attending Clinician Baird PAC, Shanell S Attending Clinician SHANELL BAIRD S Attending Clinician Unavailable Green SEARCH ENGINE OPTIMIZATION ANALYST, Isidra Attending Clinician Unknown, Attending Attending Clinician Unavailable UNKNOWN, ATTENDING Attending Clinician Unavailable Larisa BARNES, Radha Attending Clinician Sarah DO, Amr Attending Clinician Nurse, Manjinder Urgent Attending Clinician Unavailable Rudy STOLL, Estefanía M Attending Clinician Baba BARNES, Che Brock Attending Clinician Filiberto BARNES, Vika Brito Attending Clinician [phone] Toby SEARCH ENGINE OPTIMIZATION ANALYST, Jory Attending Clinician Alfredo Anaya MD, Gadiel Attending Clinician Baba BARNES, Che Brock Admitting Clinician Alfredo Anaya MD, Gadiel Admitting Clinician Payers Payer Name Policy Type Policy Number Effective Date Expiration Date S ron [facility] [id number] 2018 EMPLOYEE PLAN 00:00:00 [facility] 2020 9 [id number] 2022 00:00:00 Problems Condition Condition Condition Status Onset Resolution Last Treating Co mments Source Name Details Category Date Date Treatment Clinician Date Iron Iron Disease Active Linda deficiency deficiency 7-14 Se ybold anemia anemia 00:00: - 00 Externa l Scoliosis Scoliosis Disease Active [place] sey 7-14 Seybold 00:00: - 00 Externa l Acne Acne Disease Active [facility] vulgaris vulgaris 5-06 ity of 00:00: [place] 00 [facility] Chronic Chronic Disease Active Univers back pain back pain 5-06 ity of 00:00: [place] 00 [facility] Colitis Colitis Disease Active Univers 5-06 ity of 00:00: [place] 00 Medical Branch High risk High risk Disease Active Uni vers heterosexu heterosexu 5-06 it y of al al 00:00: [place] behavior behavior 00 Medica l Branch Iron Iron Disease Active Univers deficiency deficiency 506 it y of anemia anemia 00:00: 00 Medical Branch Major Major Disease Active Univers depressive depressive 506 it y of disorder, disorder, [place] single [place] Medical episode, episode, Branch unspecifie unspecifie d d Migraine Migraine Disease Active Unive rs aura aura 12-01 ity of without without 00:00: [place] headache headache 00 Medica l Branch Mixed Mixed Disease Active Univers hyperlipid hyperlipid 12-01 it y of emia emia 00:00: 00 Medical Branch Other Other Disease Active Univers idiopathic idiopathic 12-01 it y of scoliosis[place] Medical unspecifie unspecifie Br anch d d Knee pain Knee pain Disease Active Uni vers 8-26 ity of 00:00: [place] 00 Medical Branch Osteomyeli Osteomyeli Disease Active U sarah tis of tis of 8-18 ity of right right 00:00: [place] tibia tibia 00 Medical Branch Painful Painful Disease Active Univers orthopaedi orthopaedi 6-26 it y of c hardware c hardware [place] right [place] right knee 00 Me dical Branch Chronic Chronic Disease Active Overview: Univ ers pain of pain of 6-24 Formattin ity o f right knee right knee 00:00: g of this 00 note Medical might be Branch different from the original. Added automatic ally from request for surgery [id number] Right Right Disease Active 2015-07 Univers ankle pain ankle pain 1-28 it y of 00:00: Medical Branch Right hip Right hip Disease Active Uni vers pain pain 9-29 ity of 00:00: [place] 00 Medical Branch Family Family Disease Active Univers planning planning 2-20 ity of 00:00: [place] [facility] Menorrhagi Menorrhagi Disease Active 2012-07 K elsey a a 0-29 Seybold 00:00: - 00 Externa l Dysmenorrh Dysmenorrh Disease Active 2012-07 U sarah ea ea 0-29 ity of 00:00: [place] 00 Medical Branch Colitis Colitis Problem Active [facility] Chronic Chronic Problem Active Common back pain back pain Spir it - [facility] Depression Depression Problem Active C ommon Spirit [facility] Scoliosis Scoliosis Problem Active Com mon (and (and Spirit kyphoscoli kyphoscoli - [facility]I osis), osis), St idiopathic idiopathic [facility] Migraine Migraine Problem Active Commo n headache headache Spirit without without - [facility] aura aura [facility] Acne Acne Problem Active Common vulgaris vulgaris [facility] High risk High risk Problem Active Com mon heterosexu heterosexu Sp evelin al al - CHI behavior behavior [facility] Iron Iron Problem Active Common deficiency deficiency Sp evelin anemia, anemia, - [facility] unspecifie unspecifie d iron d iron [facility] deficiency deficiency Me dical anemia anemia Center type type Mixed Mixed Problem Active Common hyperlipid hyperlipid Sp evelin emia emia [facility] Allergies, Adverse Reactions, Alerts Allergy Allergy Status Severity Reaction(s) Onset Inactive Treating Comm ents Source Name Type Date Date Clinician Penicill Propensi Active Anaphylaxis K elsey in G ty to 12-21 Seybold adverse 00:00: - reaction 00 Externa s l Lyrica Propensi Active Other Suicidal Linda ty to 4-12 thoughts Seybold adverse 00:00: (interact - reaction 00 ion with Engineering Technical Specialist a s other l meds) codeine DA Active [facility] 04[facility]22 [facility] [place] acetamin DA Active [facility] ophen 04-22 [facility] 00:[facility] [place] predniso DA Active [facility] ne 04-22 [facility] 00:[facility] [place] sulfamet DA Active [facility] hoxazole 04-22 [facility] 00:[facility] [place] trimetho DA Active [facility] prim 04-22 [facility] 00:[facility] [place] vancomyc DA Active MO [facility] in 04-22 [facility] 00:[facility]: [facility] [place] Penicill DA Active SV [facility] ins 04-22 [facility] 00:[facility]: [facility] [place] ACETAMIN DRUG Active Rash Univers OPHEN-CO 04-11 ity of DEINE 00:00: [place] 00 Medical Branch Acetamin Propensi Active Rash 2019-0 Univer s ophen-Co ty to 04-11 ity of deine adverse 00:00: [place] reaction 00 Medical s Branch Predniso Propensi Active Hives 2019-0 Linda ne ty to 04-09 Seybold adverse 00:00: - reaction 00 Externa s l PREDNISO DRUG Active Hives 2019-0 Univers NE INGREDI 04-09 ity of 00:00: [place] [facility] Predniso Propensi Active Hives 2019-0 Univer s ne ty to 04-09 ity of adverse 00:00: [place] reaction 00 Medical s Branch Acetamin Propensi Active Rash 2019- Linda ophen-Co ty to 04-04 Seybold deine adverse 00:00: - reaction 00 Externa s l Acetamin Propensi Active Hives 2019-0 Method i ophen-Co ty to 04-04 st deine adverse 00:00: Hospita reaction 00 l s to drug Penicill DA Active SV 2018- [facility] ins 03-26 Clear 00:00: Rai [facility] sulfamet DA Active MO 2019-0 [facility] hoxazole 03-26 Clear 00:00: Rai [facility] trimetho DA Active MO 2019-0 [facility] prim 03-26 Clear 00:00: Rai [facility] vancomyc DA Active MO 2019-0 [facility] in 03-26 Clear 00:00: Rai [facility] Vancomyc Propensi Active Nausea and 2019-0 Other Ke lsey in ty to Vomiting 03-23 reaction( Seybo ld adverse 00:00: s): - reaction 00 Nausea Externa s and/or l Vomiting VANCOMYC DRUG Active Hives 2019-0 Univers IN INGREDI 03-23 ity of 00:00: [place] [facility] Vancomyc Propensi Active Hives 2019-0 Other Method i in ty to 03-23 reaction( st adverse 00:00: s): Hospita reaction 00 Nausea l s to and/or drug Vomiting Sulfamet Propensi Active Rash 2019-0 Linda hoxazole ty to 03-15 Seybold adverse 00:00: - reaction 00 Externa s l SULFAMET DRUG Active Rash 2019-0 Univers HOXAZOLE 03-15 ity of (BULK) 00:00: [place] 00 Medical Branch Sulfamet Propensi Active Rash 2018-0 Univer s hoxazole ty to 818 ity of (Bulk) adverse 00:00: [place] reaction 00 Medical s Branch Sulfamet Propensi Active Rash 2018- Method i hoxazole ty to 8-18 st (Bulk) adverse 00:00: Hospita reaction 00 l s to drug No Known DA Active U [facility] Allergie 5-19 [place] [facility] 00:00: Orthope 00 dic Hospita l PENICILL DRUG Active High Hives Univers IN INGREDI 3-05 ity of 00:00: [place] 00 Medical Branch Penicill Propensi Active Shortness of 2018 Univers in ty to Breath 3-05 ity of adverse 00:00: [place] reaction 00 Medical s Branch Penicill Propensi Active Shortness Of Methodi in ty to Breath 3-05 st [...] 00 Medical s Branch Penicill Propensi Active Itching 2015-07 Unive rs ins ty to 2-06 ity of adverse 00:00: [place] reaction 00 Medical s Branch penicill Adverse Active anaphylaxis Co mmon in Reaction [facility] Family History Family Member Diagnosis Comments Start Date Stop Date Source Natural father [facility] Natural mother Cancer [facility] Social History Social Habit Start Date Stop Date Quantity Comments Source ASSERTION 2022-11-03 Linda Seybold - 00:00:00 External Exposure to Not sure University of SARS-CoV-2 (event) [place] [facility] History SDOH University o f Alcohol Frequency [facility] edical Branch History SDOH University o f Alcohol Std Drinks [place] [facility] History SDMS University o f Alcohol Binge [place] [facility] Gender identity [facility] Tobacco use and 2022-12-21 2022-12-21 Smokeless tobacco Ke russelley Seybold - exposure 00:00:00 00:00:00 non-user External Alcohol Comment 2020-12-01 2020-12-01 occassionally Univer sity of 00:00:00 00:00:00 [place] [facility] Alcohol intake 2019-04-04 2019-04-04 Current non-drinker Marva ethodist 00:00:00 00:00:00 of alcohol Hospital ([facility]) History of Social 2019-04-04 2019-04-[address] function 00:00:00 00:00:00 Hospital History [facility] 2019-03-23 2019-03-23 4 University o f Financial 00:00:00 00:00:00 [place] [facility] History [facility] Food 2019-03-23 2019-03-23 1 Univers ity of Worry 00:00:00 00:00:00 [place] [facility] History [facility] Food 2019-03-23 2019-03-23 1 Univers ity of Scarcity 00:00:00 00:00:00 [place] [facility] History [facility] 2019-03-23 2019-03-23 2 University o f Transport Med 00:00:00 00:00:00 [place] [facility] History [facility] 2019-03-23 2019-03-23 2 University o f Transport Non-Med 00:00:00 00:00:00 [place] M edical [facility] Sex Assigned At [birth year] [facility] 00[facility] Smoking Status Start Date Stop Date Source Never smoked tobacco Linda Seyb old - External Medications Ordered Filled Start Stop Current Ordering Indication Dosage Frequency Signature Comments Components Source Medication Medication Date Date Medication? Clinician (SIG) Name Name Aripiprazol Yes 10mg Take 10 mg Linda e 10 MG 6-16 by mouth Seybold oral Tablet 10:09: at bedtime - 18 Externa l Escitalopra Yes 10mg Take 1 Jenni ey m Oxalate 6-16 tablet (10 Seyb old 10 MG oral 10:09: mg total) - Tablet 18 by mouth Externa at bedtime l Lisdexamfet Yes 60mg Take 1 Jenni ey amine 6-16 capsule Seybold Dimesylate 10:09: (60 mg - 60 MG oral 18 total) by Exte rna Capsule mouth l every morning Yes 1{tbl} Take 1 Kelse y Vit 6-16 tablet by Seybold w/Fe-Methyl 10:09: mouth - fol-FA (PNV 18 daily Externa OR) l Acetaminoph 2022-0 Yes 2{tbl} Q.25D Take 2 K elsey en 6-16 tablets by Seybold (Tylenol) 10:09: mouth - 325 MG oral 18 every 6 Exter na Capsule hours as l needed Aripiprazol 0 Yes 10mg Take 10 mg Linda e 10 MG 6-16 by mouth Seybold oral Tablet 10:09: at bedtime - 18 Externa l Escitalopra 2022-0 Yes 10mg Take 1 Jenni ey m Oxalate 6-16 tablet (10 Seyb old 10 MG oral 10:09: mg total) - Tablet 18 by mouth Externa at bedtime l Lisdexamfet 2022-0 Yes 60mg Take 1 Jenni ey amine 6-16 capsule Seybold Dimesylate 10:09: (60 mg - 60 MG oral 18 total) by Exte rna Capsule mouth l every morning 0 Yes 1{tbl} Take 1 Kelse y Vit 6-16 tablet by Seybold w/Fe-Methyl 10:09: mouth - fol-FA (PNV 18 daily Externa OR) l Acetaminoph 0 Yes 2{tbl} Q.25D Take 2 K elsey en 6-16 tablets by Seybold (Tylenol) 10:09: mouth - 325 MG oral 18 every 6 Exter na Capsule hours as l needed Doxylamine- 2022-0 Yes [id number] 1{tbl} Take 1 Linda Pyridoxine 6-16 tablet by Seyb old (Diclegis) 00:00: mouth - 10-10 MG 00 every 8 Externa oral Tablet hours l Delayed Response Doxylamine- 2022-0 Yes [id number] 1{tbl} Take 1 Linda Pyridoxine 6-16 tablet by Seyb old (Diclegis) 00:00: mouth - 10-10 MG 00 every 8 Externa oral Tablet hours l Delayed Response 2022-0 Yes 1{tbl} Take 1 Kelse y Vit 6-06 tablet by Seybold w/Fe-Methyl 10:08: mouth - fol-FA (PNV 05 daily Externa OR) l Acetaminoph Yes 2{tbl} Q.25D Take 2 K elsey en 6-06 tablets by Seybold (Tylenol) 10:08: mouth - 325 MG oral 05 every 6 Exter na Capsule hours as l needed Aripiprazol Yes 10mg Take 10 mg Linda e 10 MG 6-06 by mouth Seybold oral Tablet 09:31: at bedtime - 06 Externa l Escitalopra Yes 10mg Take 1 Jenni ey m Oxalate 6-06 tablet (10 Seyb old 10 MG oral 09:31: mg total) - Tablet 06 by mouth Externa at bedtime l Lisdexamfet Yes 60mg Take 1 Jenni ey amine 6-06 capsule Seybold Dimesylate 09:31: (60 mg - 60 MG oral 06 total) by Exte rna Capsule mouth l every morning Aripiprazol Yes 10mg Take 10 mg Linda e 10 MG 5-26 by mouth Seybold oral Tablet 14:27: at bedtime - 24 Externa l Escitalopra Yes 10mg Take 1 Jenni ey m Oxalate 5-26 tablet (10 Seyb old 10 MG oral 14:27: mg total) - Tablet 24 by mouth Externa at bedtime l Lisdexamfet 0 Yes 60mg Take 1 Jenni ey amine 5-26 capsule Seybold Dimesylate 14:27: (60 mg - 60 MG oral 24 total) by Exte rna Capsule mouth l every morning Aripiprazol Yes 10mg Take 10 mg Linda e 10 MG 4-27 by mouth Seybold oral Tablet 15:51: at bedtime - 20 Externa l Escitalopra 2022-0 Yes 10mg Take 1 Jenni ey m [...] rna Capsule mouth l every morning Aripiprazol Yes 10mg Take 10 mg Linda e 10 MG 4-12 by mouth Seybold oral Tablet 10:03: at bedtime - 14 Externa l Escitalopra Yes 10mg Take 1 Jenni ey m Oxalate 4-12 tablet (10 Seyb old 10 MG oral 10:03: mg total) - Tablet 14 by mouth Externa at bedtime l Lisdexamfet 0 Yes 60mg Take 1 Jenni ey amine 4-12 capsule Seybold Dimesylate 10:03: (60 mg - 60 MG oral 14 total) by Exte rna Capsule mouth l every morning Benzonatate 2022- Yes [id number] 150mg Q.[id number] Take 1 Linda 150 MG oral 4-09 29-14 [id number] capsule Seybold Capsule 00:00: 04:59 3D (150 mg - 00 :00 total) by Externa mouth 3 l times daily as needed (cough) for up to 10 days Benzonatate 2022- Yes [id number] 150mg Q.[id number] Take 1 Linda 150 MG oral 4-09 29-14 [id number] capsule Seybold Capsule 00:00: 04:59 3D (150 mg - 00 :00 total) by Externa mouth 3 l times daily as needed (cough) for up to 10 days Pregabalin Yes 1 po q hs Ke lsey (Lyrica) 50 3-15 x 3 Seybold MG oral 00:00: nights, - Capsule 00 then 1 po Externa bid l Pregabalin 0 2022- No 1 po q hs K elsey (Lyrica) 50 3-15 04-12 x 3 Seybold MG oral 00:00: 00:00 nights, - Capsule 00 :00 then 1 po Externa bid l Aripiprazol 3-0 Yes 10mg Take 10 mg Linda e 10 MG 2-06 by mouth Seybold oral Tablet 14:55: at bedtime - 50 Externa l Escitalopra 3-0 Yes 10mg Take 10 mg Linda m Oxalate 2-06 by mouth Seybol d 10 MG oral 14:55: at bedtime - Tablet 50 Externa l Lisdexamfet 3-0 Yes 60mg Take 60 mg Linda amine 2-06 by mouth Seybold Dimesylate 14:55: every - 60 MG oral 50 morning Engineering Technical Specialist a Capsule l Aripiprazol 2022-0 Yes 10mg Take 10 mg Linda e 10 MG 2-06 by mouth Seybold oral Tablet 14:55: at bedtime - 50 Externa l Escitalopra 3-0 Yes 10mg Take 10 mg Linda m Oxalate 2-06 by mouth Seybol d 10 MG oral 14:55: at bedtime - Tablet 50 Externa l Lisdexamfet 3-0 Yes 60mg Take 60 mg Linda amine 2-06 by mouth Seybold Dimesylate 14:55: every - 60 MG oral 50 morning Engineering Technical Specialist a Capsule l Aripiprazol 2022-0 Yes 10mg Take 10 mg Linda e 10 MG 2-06 by mouth Seybold oral Tablet 14:55: at bedtime - 50 Externa l Escitalopra 3-0 Yes 10mg Take 10 mg Linda m Oxalate 2-06 by mouth Seybol d 10 MG oral 14:55: at bedtime - Tablet 50 Externa l Lisdexamfet 3-0 Yes 60mg Take 60 mg Linda amine 2-06 by mouth Seybold Dimesylate 14:55: every - 60 MG oral 50 morning Engineering Technical Specialist a Capsule l Meclizine 2022-0 Yes 12.5mg Q.[id number] Take 1 Linda HCl 12.5 MG 2-06 [id number] tablet Seybold oral Tablet 00:00: 3D (12.5 mg - 00 total) by Externa mouth 3 l times daily as needed Meclizine 2022-0 Yes 12.5mg Q.[id number] Take 1 Linda HCl 12.5 MG 2-06 [id number] tablet Seybold oral Tablet 00:00: 3D (12.5 mg - 00 total) by Externa mouth 3 l times daily as needed Meclizine 2023-0 Yes 12.5mg Q.[id number] Take 1 Linda HCl 12.5 MG 2-06 [id number] tablet Seybold oral Tablet 00:00: 3D (12.5 mg - 00 total) by Externa mouth 3 l times daily as needed Meclizine 2023-0 Yes 12.5mg Q.[id number] Take 1 Linda HCl 12.5 MG 2-06 [id number] tablet Seybold oral Tablet 00:00: 3D (12.5 mg - 00 total) by Externa mouth 3 l times daily as needed Meclizine 2023-0 Yes 12.5mg Q.[id number] Take 1 Linda HCl 12.5 MG 2-06 [id number] tablet Seybold oral Tablet 00:00: 3D (12.5 mg - 00 total) by Externa mouth 3 l times daily as needed Meclizine 2023-0 Yes 12.5mg Q.[id number] Take 1 Linda HCl 12.5 MG 2-06 [id number] tablet Seybold oral Tablet 00:00: 3D (12.5 mg - 00 total) by Externa mouth 3 l times daily as needed Meclizine 2023-0 Yes 12.5mg Q.[id number] Take 1 Linda HCl 12.5 MG 2-06 [id number] tablet Seybold oral Tablet 00:00: 3D (12.5 mg - 00 total) by Externa mouth 3 l times daily as needed Meclizine 2023-0 Yes 12.5mg Q.[id number] Take 1 Linda HCl 12.5 MG 2-06 [id number] tablet Seybold oral Tablet 00:00: 3D (12.5 mg - 00 total) by Externa mouth 3 l times daily as needed Meclizine 2023-0 Yes 12.5mg Q.[id number] Take 1 Linda HCl 12.5 MG 2-06 [id number] tablet Seybold oral Tablet 00:00: 3D (12.5 mg - 00 total) by Externa mouth 3 l times daily as needed Meclizine Yes 12.5mg Q.[id number] Take 1 Linda HCl 12.5 MG 2-06 [id number] tablet Seybold oral Tablet 00:00: 3D (12.5 mg - 00 total) by Externa mouth 3 l times daily as needed Propranolol 2021-07- No 2mg/kg/ Take 2 Linda HCl 20 [...] every - 60 MG oral 07 morning Engineering Technical Specialist a Capsule l Aripiprazol 2021-07 Yes 10mg Take 10 mg Linda e 10 MG 1-29 by mouth Seybold oral Tablet 08:36: at bedtime - 07 Externa l Escitalopra 2021-07 Yes 10mg Take 10 mg Linda m Oxalate 1-29 by mouth Seybol d 10 MG oral 08:36: at bedtime - Tablet 07 Externa l Lisdexamfet 2021-07 Yes 60mg Take 60 mg Linda amine 1-29 by mouth Seybold Dimesylate 08:36: every - 60 MG oral 07 morning Engineering Technical Specialist a Capsule l Propranolol 2021-07 Yes 2mg/kg/ Take 2 K elsey HCl 20 1-29 d mg/kg/day Seybold MG/5ML oral 08:36: by mouth 3 - Solution 07 times Externa daily l CLINDAMYCIN 2021-07 Yes [id number] Apply BID Linda PHOSPHATE,T - to armpits Se ybold OPICAL, 1 % 00:00: and groin - apply 00 for cyst Externa externally and acne l SWAB like spots. This is always used along with daily OTC benzoyl peroxide wash Doxycycline 2021-07 Yes [id number] Take one Linda Monohydrate 1-29 po BID for Se ybold 100 MG oral 00:00: hidradenit - Capsule 00 is. Take Externa with l meal/snack . CLINDAMYCIN 2021-07 Yes [id number] Apply BID Linda PHOSPHATE,T 08-26 to armpits Se ybold OPICAL, 1 % 00:00: and groin - apply 00 for cyst Externa externally and acne l SWAB like spots. This is always used along with daily OTC benzoyl peroxide wash Doxycycline 2021-07 Yes [id number] Take one Linda Monohydrate -29 po BID for Se ybold 100 MG oral 00:00: hidradenit - Capsule 00 is. Take Externa with l meal/snack . CLINDAMYCIN 2021-07- No [id number] Apply BID Linda PHOSPHATE,T 08-26-06 to armpits S eybold OPICAL, 1 % 00:00: 00:00 and groin - apply 00 :00 for cyst Externa externally and acne l SWAB like spots. This is always used along with daily OTC benzoyl peroxide wash Doxycycline 2021-07- No [id number] Take one Linda Monohydrate -29 02-06 po BID for S eybold 100 MG oral 00:00: 00:00 hidradenit - Capsule 00 :00 is. Take Externa with l meal/snack . Lisdexamfet 2021-07 Yes 60mg Take 60 mg Linda amine -22 by mouth Seybold Dimesylate 08:25: every - (Vyvanse) 01 morning Externa 60 MG oral l Capsule Propranolol 2021-07 Yes 2mg/kg/ Take 2 K elsey HCl 20 1-22 d mg/kg/day Seybold MG/5ML oral 08:25: by mouth 3 - Solution 01 times Externa daily l Amphetamine 2021-07- No 1{tbl} 1 tablet Linda -Dextroamph -22 11-22 by other Sey bold etamine 30 08:23: 00:00 route - MG oral 05 :00 Externa Tablet l Aripiprazol 2021-07 Yes 10mg Take 10 mg Linda e 10 MG -22 by mouth Seybold oral Tablet 08:13: at bedtime - 40 Externa l Escitalopra 2021-07 Yes 10mg Take 10 mg Linda m Oxalate 08-19 by mouth Seybol d 10 MG oral 08:13: at bedtime - Tablet 40 Externa l Aripiprazol Yes 10mg Take 10 mg Linda e 10 MG 22 by mouth Seybold oral Tablet 08:35: at bedtime - 49 Externa l Escitalopra Yes 10mg Take 10 mg Linda m Oxalate 04-19 by mouth Seybol d 10 MG oral 08:35: at bedtime - Tablet 49 Externa l Amphetamine Yes 1{tbl} 1 tablet Linda -Dextroamph 04-19 by other Seyb old etamine 30 08:35: route - MG oral 49 Externa Tablet l Benzonatate Yes [id number] 100mg Q.[id number] Take 1 Linda 100 MG oral 04-19 [id number] capsule Seybold Capsule 00:00: 3D (100 mg - 00 total) by Externa mouth 3 l times daily as needed for cough Benzonatate 2021-2021- No [id number] 100mg Q.[id number] Take 1 Linda 100 MG oral 04-19 [id number] capsule Seybold Capsule 00:00: 00:00 3D (100 mg - 00 :00 total) by Externa mouth 3 l times daily as needed for cough Meloxicam 2021-0 Yes 15mg Take 1 Linda [...] with Meals, STOP IF UPSET STOMACH Meloxicam 2022- No 15mg Take 1 Kelse y 15 MG oral 8-19 02-06 tablet (15 Se ybold Tablet 00:00: 00:00 mg total) - 00 :00 by mouth Externa daily Take l with Meals, STOP IF UPSET STOMACH hydrOXYzine Yes 1 capsule U nivers 25 mg 5-06 as needed ity of capsule 11:37: [place] [address] Medical Branch escitalopra 0 Yes 1 tablet Un amy m oxalate 5-06 ity of (LEXAPRO) 11:37: [place] 10 [address] Medical tablet Branch lamoTRIgine Yes 4 tablets U nivers (LAMICTAL) 5-06 ity of 25 mg 11:37: [place] tablet 52 Medical Branch ibuprofen-f 0 Yes 1 tablet Un amy amotidine 5-06 ity of (DUEXIS) 11:37: [place] 800-26.6 mg 52 Medical per tablet Branch acetaminoph Yes 325mg Take 325 U nivers en 325 mg 5-06 mg by ity of tablet 11:36: mouth. [place] [address] Medical Branch dexmethylph Yes 5mg Take 5 mg U nivers enidate 5 5-06 by mouth. ity o f mg tablet 11:36: [place] [address] Medical Branch diphenhydrA 0 Yes 25mg Take 25 mg Univers MINE 25 mg 5-06 by mouth. ity of tablet 11:36: [place] [address] Medical Branch medroxyPROG 0 Yes 150mg 150 mg by Univers ESTERone 5-06 Intramuscu ity o f 150 mg/mL 11:36: [place] injection 57 Medical Branch zolpidem 2020-07- No Take by Unive rs tartrate 2-13 12-13 mouth. ity of (AMBIEN 10:31: 00:00 [place] ORAL) 17 :00 Medical Branch escitalopra 2020-07- No Take by Un amy m oxalate 2-13 12-13 mouth. ity of (LEXAPRO 10:31: 00:00 [...] of tablet 00:00: Medical Branch LOESTRIN FE 202- No [id number] 1{tbl} Take 1 Univers 1 mg-20 mcg 12-01 tablet by it y of (21)/75 mg 00:00: 00:00 mouth [place] (7) tablet 00 :00 daily. Medical Branch aripiprazol Yes Take by Uni vers e (ABILIFY 4-08 mouth. ity of ORAL) 13:25: [place] [address] Medical Branch quetiapine Yes Take by [facility] ers fumarate 4-08 mouth. ity of (SEROQUEL 13:25: [place] ORAL) 21 Medical Branch dextroamphe Yes Take by Uni vers tamine/amph 4-08 mouth. ity of etamine 13:25: [place] (ADDERALL 21 Medical ORAL) Branch aripiprazol Yes Take by Uni vers e (ABILIFY 4-08 mouth. ity of ORAL) 13:25: [place] [address] Medical Branch quetiapine Yes Take by Univ ers fumarate 4-08 mouth. ity of (SEROQUEL 13:25: [place] ORAL) 21 Medical Branch dextroamphe Yes Take by Uni vers tamine/amph 4-08 mouth. ity of etamine 13:25: [place] (ADDERALL 21 Medical ORAL) Branch aripiprazol Yes Take by Uni vers e (ABILIFY 4-08 mouth. ity of ORAL) 13:25: [place] [address] Medical Branch quetiapine Yes Take by Univ ers fumarate 4-08 mouth. ity of (SEROQUEL 13:25: [place] ORAL) 21 Medical Branch dextroamphe Yes Take by Uni vers tamine/amph 4-08 mouth. ity of etamine 13:25: [place] (ADDERALL 21 Medical ORAL) Branch aripiprazol Yes Take by Uni vers e (ABILIFY 4-08 mouth. ity of ORAL) 13:25: [place] [address] Medical Branch quetiapine Yes Take by [facility] ers fumarate 4-08 mouth. ity of (SEROQUEL 13:25: [place] ORAL) 21 Medical Branch dextroamphe Yes Take by Uni vers tamine/amph 4-08 mouth. ity of etamine 13:25: [place] (ADDERALL 21 Medical ORAL) Branch aripiprazol Yes Take by Uni vers e (ABILIFY 4-08 mouth. ity of ORAL) 13:25: [place] [address] Medical Branch quetiapine Yes Take by [facility] ers fumarate 4-08 mouth. ity of (SEROQUEL 13:25: [place] ORAL) 21 Medical Branch dextroamphe Yes Take by Uni vers tamine/amph 4-08 mouth. ity of etamine 13:25: [place] (ADDERALL 21 Medical ORAL) Branch traMADol 2020- No [id number] 50mg Take 1 Univer s (ULTRAM) 50 7-11 12-13 tablet by it y of mg tablet 00:00: 00:00 mouth [place] 00 :00 every 6 Medical (six) Branch hours as needed for Pain (scale 7-10). Indication s: acute pain Tamiflu Tamiflu Yes Luke 1 capsule Common 1-15 [facility] 00:00: - CHI 00 [facility] hydrOXYzine 202- No [id number] 25mg Take 1 Univers 25 mg 9-12 [...] 03 needed for l tablet sleep. diphenhydrA 2019-0 Yes 25mg QD Take 25 mg Methodi MINE 9-[address] (BENADRYL) 23:15: nightly as H ospita 25 mg 03 needed for l tablet sleep. acetaminoph 2019-0 Yes 325mg Q6H Take 325 M ethodi en 9-[address] (TYLENOL) 23:15: mouth [facility] 325 MG 02 every 6 l tablet (six) hours as needed for fever. acetaminoph 2019-0 Yes 325mg Q6H Take 325 M ethodi en 9-[address] (TYLENOL) 23:15: mouth [facility] 325 MG 02 every 6 l tablet (six) hours as needed for fever. acetaminoph 2019-0 Yes 325mg Q6H Take 325 M ethodi en 9-[address] (TYLENOL) 23:15: mouth [facility] 325 MG 02 every 6 l tablet (six) hours as needed for fever. Immunizations Ordered Filled Immunization Date Status Comments [facility] e Immunization Name Name Influenza, 2022-04-11 Completed Linda Bush - Injectable, Mdck, 00:00:00 Externa l Quadrivalent With Preservatie Influenza, 2022-04-11 Completed Linda Bush - Injectable, Mdck, 00:00:00 Externa l Quadrivalent With Preservatie Influenza, 2022-04-11 Completed Linda Bush - Injectable, Mdck, 00:00:00 Externa l Quadrivalent With Preservatie Influenza, 2022-04-11 Completed Linda Bush - Injectable, Mdck, 00:00:00 Externa l Quadrivalent With Preservatie Influenza, 2022-04-11 Completed Linda Bush - Injectable, Mdck, 00:00:00 Externa l Quadrivalent With Preservatie Influenza, 2022-04-11 Completed Linda Bush - Injectable, Mdck, 00:00:00 Externa l Quadrivalent With Preservatie Influenza, 2022-04-11 Completed Linda Bush - Injectable, Mdck, 00:00:00 Externa l Quadrivalent [...] Quadrivalent With Preservatie Influenza, 2022-04-11 Completed Linda Pelaezold - Injectable, Mdck, 00:00:00 Externa l Quadrivalent [...] External (Purified)- Tuberculin SARS-COV-2 COVID-19 2021-07-03 Completed [facility] of PFIZER VACCINE 00:00:00 [facility] SARS-COV-2 COVID-19 2021-07-03 Completed Unive rsity of PFIZER VACCINE 00:00:00 [facility] SARS-COV-2 COVID-19 2021-07-03 Completed Unive rsity of PFIZER VACCINE 00:00:00 [facility] SARS-COV-2 COVID-19 2021-07-03 Completed Unive rsity of PFIZER VACCINE 00:00:00 [facility] SARS-COV-2 COVID-19 2021-07-03 Completed Unive rsity of PFIZER VACCINE 00:00:00 [facility] Influenza Virus 2021-06-28 Completed Linda Se ybold [...] and up Influenza Virus 2021-06-28 Completed Linda monroe - Vaccine, age 4 00:00:00 External months and up SARS-COV-2 COVID-19 2021-06-12 Completed Unive rsity of PFIZER VACCINE 00:00:00 [facility] SARS-COV-2 COVID-19 2021-06-12 Completed Unive rsity of PFIZER VACCINE 00:00:00 [facility] SARS-COV-2 COVID-19 2021-06-12 Completed Unive rsity of PFIZER VACCINE 00:00:00 [facility] SARS-COV-2 COVID-19 2021-06-12 Completed Unive rsity of PFIZER VACCINE 00:00:00 [facility] SARS-COV-2 COVID-19 2021-06-12 Completed Unive rsity of PFIZER VACCINE 00:00:00 [facility] Influenza Virus 2019-05-28 Completed Universit y of Vaccine 00:00:00 [facility] Influenza Virus 2019-05-28 Completed Universit y of Vaccine 00:00:00 [facility] Influenza Virus 2019-05-28 Completed Universit y of Vaccine 00:00:00 [facility] Influenza Virus 2019-05-28 Completed Universit y of Vaccine 00:00:00 [facility] Influenza Virus 2019-05-28 Completed Universit y of Vaccine 00:00:00 [facility] Influenza Virus 2018-07-02 Completed Universit y of Vaccine Quad IM 3+ 00:00:00 [facility] Vital Signs Vital Name Observation Time Observation Value Comments Source Systolic blood 2023-01-11 15:02:00 129 mm[Hg] Linda Bush - pressure External Diastolic blood 2023-01-11 15:02:00 82 mm[Hg] Bruno Bush - pressure External Heart rate 2023-01-11 15:02:00 82 /min Linda juárezboedis - External Body weight 2023-01-11 15:02:00 82.555 kg Linda juárezbold - External BMI 2023-01-11 15:02:00 28.51 kg/m2 Linda juárezbold - External Body weight 2023-01-01 14:30:00 84.369 kg Linda Garcia eybold - External BMI 2023-01-01 14:30:00 29.13 kg/m2 Linda S eybold - External Respiratory rate 2022-12-21 19:24:00 16 /min Jenni ey Seybold - External Body height 2022-12-21 19:24:00 170.2 cm Linda Garcia eybold - External Body weight 2022-12-21 19:24:00 83.462 kg Linda Garcia eybold - External BMI 2022-12-21 19:24:00 28.82 kg/m2 Linda S eybold - External Systolic blood 2022-11-22 20:50:00 128 mm[Hg] Linda Seybold - pressure External Diastolic blood 2022-11-22 20:50:00 72 mm[Hg] North[place] y Seybold - pressure External Heart rate 2022-11-22 20:50:00 124 /min Linda Garcia eybold - External Body temperature 2022-11-22 20:50:00 37.44 Meaghan Jenni juárez Seybold - External Respiratory rate 2022-11-22 20:50:00 16 /min Jenni juárez Seybold - External Body height 2022-11-22 20:50:00 170.2 cm Linda Garcia eybold - External Body weight 2022-11-22 20:50:00 84.369 kg Linda Garcia eybold - External BMI 2022-11-22 20:50:00 29.13 kg/m2 Linda Garcia eybold - External Body height 2022-11-07 15:02:00 170.2 cm Linda Garcia eybold - External Body weight 2022-11-07 15:02:00 82.781 kg Linda Garcia eybold - External BMI 2022-11-07 15:02:00 28.58 kg/m2 Linda Garcia eybold - External Systolic blood 2022-09-03 21:58:00 130 mm[Hg] Linda Seybold - pressure External Diastolic blood 2022-09-03 21:58:00 70 mm[Hg] [place] Seybold - pressure External Heart rate 2022-09-03 21:58:00 72 /min Linda S eybold - External Body temperature 2022-09-03 20:54:00 36.61 Meaghan Jenni ey Seybold - External Respiratory rate 2022-09-03 20:54:00 14 /min Jenni ey Seybold - External Body weight 2022-09-03 20:54:00 82.781 kg Linda Garcia eybold - External BMI 2022-09-03 20:54:00 28.58 kg/m2 Linda Garcia eybold - External Systolic blood 2022-07-16 14:47:00 124 mm[Hg] Linda Seybold - pressure External Diastolic blood 2022-07-16 14:47:00 64 mm[Hg] [place] Seybold - pressure External Body height 2022-07-16 14:47:00 170.2 cm Linda Garcia eybold - External Body weight 2022-07-16 14:47:00 80.559 kg Linda Garcia eybold - External BMI 2022-07-16 14:47:00 27.82 kg/m2 Linda Garcia eybold - External Body temperature 2022-06-26 14:33:00 36.61 Meaghan Jenni ey Seybold - External Systolic blood 2022-06-19 14:12:00 118 mm[Hg] Linda Seybold - pressure External Diastolic blood 2022-06-19 14:12:00 82 mm[Hg] [place] Seybold - pressure External Heart rate 2022-06-19 14:12:00 72 /min Linda Garcia eybold - External Body temperature 2022-06-19 14:12:00 36.94 Meaghan Jenni ey Seybold - External Respiratory rate 2022-06-19 14:12:00 16 /min Jenni ey Seybold - External Body height 2022-06-19 14:12:00 170.2 cm Linda Garcia eybold - External Body weight 2022-06-19 14:12:00 80.74 kg Linda Garcia eybold - External BMI 2022-06-19 14:12:00 27.88 kg/m2 Linda Garcia eybold - External Systolic blood 2021-07-10 16:11:00 124 mm[Hg] Univer sity of [facility] Diastolic blood 2021-07-10 16:11:00 81 mm[Hg] Unive rsity of pressure [facility] Heart rate 2021-07-10 16:11:00 87 /min [facility] Body temperature 2021-07-10 16:11:00 36.94 Meaghan [facility] Body height 2021-07-10 16:11:00 170.2 cm [facility] Body weight 2021-07-10 16:11:00 65.318 kg [facility] BMI 2021-07-10 16:11:00 22.55 kg/m2 [facility] Procedures Procedure Date / Time Performed Performing Clinician Sourc e CBC WITH DIFFERENTIAL 2022-11-22 21:44:00 Kenyon Ayoubold - Rivera External TSH RFX ON ABNORMAL TO 2022-11-22 21:44:00 Kenyon Ayoub - FREE T4 Rivera External HCG, BETA SUBUNIT, QNT 2022-11-22 21:44:00 Kenyon Ayoubold - Rivera External LUMBAR SPINE 2 VIEWS 2022-06-19 15:10:25 Kenyon Ayoubold - Rivera External HIPS BILATERAL 2022-06-19 15:09:45 Kenyon Ayoubo ld - Rivera External Plan of Care Planned Activity Planned Date Details Comments Source Future Scheduled 2023-01-12 COVID-19 VACCINE (#1) [facility] Test 10:21:38 [code = COVID-19 VACCINE (#1)] Future Scheduled 2023-01-12 [facility] Test 10:21:38 Chlamydia trachomatis (procedure) [code = 102689976] Future Scheduled 2023-01-12 [facility] Test 10:21:38 malignant neoplasm of cervix (procedure) [code = 777424667] Future Scheduled 2023-01-12 INFLUENZA VACCINE [facility] Test 10:21:38 [code = INFLUENZA VACCINE] Future Scheduled 2022-10-27 [facility] 18:38:18 [code = COVID-19 VACCINE (#1)] Future Scheduled 2022-10-27 [facility] Test 18:38:18 Chlamydia trachomatis (procedure) [code = 990128976] Future Scheduled 2022-10-27 [facility] Test 18:38:18 malignant neoplasm of cervix (procedure) [code = 752737478] Future Scheduled 2022-10-27 INFLUENZA VACCINE [facility] Test 18:38:18 [code = INFLUENZA VACCINE] Future Scheduled 2021-11-02 COVID-19 VACCINE (1) [facility] 05:57:10 [code = COVID-19 VACCINE (1)] Future Scheduled 2021-11-02 CHLAMYDIA SCREENING [facility] Test 05:57:10 [code = CHLAMYDIA SCREENING] Future Scheduled 2021-11-02 Hepatitis C [facility] Test 05:57:10 (procedure) [code = 149074977] Future Scheduled 2021-11-02 [facility] Test 05:57:10 malignant neoplasm of cervix (procedure) [code = 921726620] Future Scheduled 2021-11-02 INFLUENZA VACCINE [facility] Test 05:57:10 [code = INFLUENZA VACCINE] Encounters Start End Encounter Admission Attending Care Care Encounter Source Date/Time Date/Time Type Type Clinicians Facility Department ID 2021-05-26 Emergency [facility] [id number] Univers 18:53:43 ity [facility] 2021-05-26 Emergency [facility] [id number] Univers 10:16:26 ity [facility] 2021-05-26 Emergency [facility] [id number] Univers 06:11:14 ity [facility] 2021-05-25 Emergency [facility] [id number] Univers [facility]23-[facility]-08 2023-02-08 Outpatient LINDA TORRES [id number] Linda 10:45:00 10:45:00 YUN Bojorquezybol maria g 2023-01-27 2023-01-27 Outpatient LINDA SUMMERS [id number] Linda 00:00:00 00:00:00 EVELYN Pelaezol maria g 2023-01-21 2023-01-21 Outpatient LINDA TORRES [id number] Linda 00:00:00 00:00:00 YUN Seybol d 2023-01-17 2023-01-17 Commodities Clerk Lab, Ang - Db [facility] [id number] Univers 14:15:00 14:30:00 Visit Evelyn Mccormack [facility] [id number] [facility] [id number] Manjinder as REX?BLEA [id number] [address] MEDICAL OFFICE [facility] 2023-01-17 2023-01-17 Outpatient R JOE [facility] [id number] Univers 14:15:00 14:15:[facility] 2023-01-11 2023-01-11 Outpatient [id number] LINDA BETANCRU [id number] Linda 10:55:00 10:55:00 Seybol d 2023-01-11 2023-01-11 Outpatient LINDA TORRES [id number] Linda 09:45:00 09:45:00 ZISHAN Seybol d 2023-01-10 2023-01-10 Outpatient LINDA LEE [id number] Linda 13:30:00 13:30:00 NEREIDA Seybol d 2023-01-01 2023-01-01 Outpatient LINDA LEGGETT [id number] Linda 09:00:00 09:00:00 [id number] Seybol d 2023-01-01 2023-01-01 Outpatient LINDA BETANCUR [id number] Linda 00:00:00 00:00:00 Seybol d 2022-12-26 2022-12-26 Outpatient NELA CASTRO [id number] Linda 11:30:00 11:30:00 Seybol d 2022-12-26 2022-12-26 Outpatient KEVIN BETANCUR [id number] Linda 00:00:00 00:00:00 MD JOHN Seybol d 2022-12-26 2022-12-26 Outpatient KEVIN BETANCUR [id number] Linda 00:00:00 00:00:00 MD JOHN Seybol d 2022-12-22 2022-12-22 Outpatient LINDA BETANCUR [id number] Linda 03:25:00 03:25:00 Seybol d 2022-12-21 2022-12-21 Outpatient LINDA TORRES [id number] Linda 14:30:00 14:30:00 ZISHAN Seybol d 2022-12-13 2022-12-13 Outpatient LINDA BETANCUR [id number] Linda 00:00:00 00:00:00 Seybol d 2022-12-06 2022-12-06 Outpatient LINDA HEARD [id number] Linda 13:10:00 13:10:00 AWAIS Seybol d 2022-12-04 2022-12-04 Outpatient JUDYLINDAOMID LINDA BETANCUR [id number] Linda 00:00:00 00:00:00 MD JOHN Seybol d 2022-12-03 2022-12-03 Outpatient LINDA AYOUB [id number] Linda 00:00:00 00:00:00 KENYON Seybol d 2022-11-28 2022-11-28 Outpatient LINDA MURPHY [id number] Linda 00:00:00 00:00:00 AMIRHOSSEIN Se ybold 2022-11-27 2022-11-27 Outpatient LINDA BETANCUR [id number] Linda 00:00:00 00:00:00 Seybol d 2022-11-23 2022-11-23 Outpatient LINDA AYOUB [id number] Linda 00:00:00 00:00:00 KENYON Seybol d 2022-11-23 2022-11-23 Outpatient LINDA MURPHY [id number] Linda 00:00:00 00:00:00 AMIRHOSSEIN Se ybold 2022-11-22 2022-11-22 Outpatient LAB47 LINDA BETANCUR [id number] Linda 16:45:00 16:45:00 Seybol d 2022-11-22 2022-11-22 Outpatient LINDA AYOUB [id number] Linda 16:00:00 16:00:00 KENYON Seybol d 2022-11-08 2022-11-08 Outpatient LINDA ORTEGA [id number] Linda 00:00:00 00:00:00 VALENTINO Seybol d 2022-11-08 2022-11-08 Outpatient LINDA AYOUB [id number] Linda 00:00:00 00:00:00 KENYON Seybol d 2022-11-07 2022-11-07 Outpatient LINDA ORTEGA [id number] Linda 10:00:00 10:00:00 VALENTINO Seybol d 2022-10-29 2022-10-29 Outpatient ODESSALINDA [id number] Linda 08:00:00 08:00:00 YOLANDA Seybol d 2022-10-26 2022-10-26 Outpatient LINDA ORTEGA [id number] Linda 00:00:00 00:00:00 VALENTINO Seybol d 2022-10-10 2022-10-10 Outpatient LINDA ORTEGA [id number] Linda 00:00:00 00:00:00 VALENTINO Seybol d 2022-10-10 2022-10-10 Outpatient LINDA PENALOZA [id number] Linda 00:00:00 00:00:00 SONAM Seybol d 2022-10-09 2022-10-09 Outpatient LINDA MÁRQUEZ [id number] Linda 15:00:00 15:00:00 OLIVER Seybo ld 2022-10-08 2022-10-08 Outpatient LINDA LISA [id number] Linda 14:45:00 14:45:00 TEODORA Seybo ld 2022-09-26 2022-09-26 Outpatient LINDA ORTEGA [id number] Linda 00:00:00 00:00:00 VALENTINO Seybol d 2022-09-03 2022-09-03 Outpatient LAB47 LINDA BETANCUR [id number] Linda 16:05:00 16:05:00 Seybol d 2022-09-03 2022-09-03 Outpatient LINDA AYOUB [id number] Linda 14:45:00 14:45:00 KENYON Seybol d 2022-08-22 2022-08-22 Outpatient LINDA ORTEGA [id number] Linda 00:00:00 00:00:00 VALENTINO Seybol d 2022-08-22 2022-08-22 Outpatient LINDA ORTEGA [id number] Linda 00:00:00 00:00:00 VALENTINO Seybol d 2022-08-20 2022-08-20 Outpatient LINDA BETANCUR [id number] Linda 11:15:00 11:15:00 Seybol d 2022-07-16 2022-07-16 Outpatient LINDA ORTEGA [id number] Linda 08:45:00 08:45:00 VALENTINO Seybol d 2022-07-13 2022-07-13 Outpatient MARYJANE RIOS LINDA BETANCUR [id number] Linda 11:45:00 11:45:00 Seybol d 2022-07-13 2022-07-13 Outpatient LINDA PEDRAZA [id number] Linda 00:00:00 00:00:00 JOHN Seybol d 2022-07-13 2022-07-13 Outpatient LINDA PEDRAZA [id number] Linda 00:00:00 00:00:00 JOHN Seybol d 2022-07-13 2022-07-13 Outpatient LINDA MÁRQUEZ [id number] Linda 00:00:00 00:00:00 OLIVER Seybo ld 2022-06-26 2022-06-26 Outpatient LINDA MÁRQUEZ [id number] Linda 08:30:00 08:30:00 OLIVER Seybo ld 2022-06-25 2022-06-25 Outpatient LINDA AYOUB [id number] Linda 00:00:00 00:00:00 KENYON Seybol d 2022-06-19 2022-06-19 Outpatient LINDA BETANCUR [id number] Linda 09:05:00 09:05:00 Seybol d 2022-06-19 2022-06-19 Outpatient LINDA BETANCUR [id number] Linda 09:00:00 09:00:00 Seybol d 2022-06-19 2022-06-19 Outpatient LINDA AYOUB [id number] Linda 08:15:00 08:15:00 KENYON Seybol d 2022-04-23 2022-04-23 Outpatient LINDA PERAZA [id number] Linda 08:00:00 08:00:00 SHANNON Seybol d 2022-04-19 2022-04-19 Outpatient ZUA69-[id number] LINDA BETANCUR [id number] Linda 14:15:00 14:15:00 Seybol d 2022-04-19 2022-04-19 Outpatient TESTING, LINDA BETANCUR [id number] Linda 14:00:00 14:00:00 Seybol d 2022-04-19 2022-04-19 Outpatient YMY75-[id number] LINDA BETANCUR [id number] Linda 13:55:00 13:55:00 Seybol d 2022-04-19 2022-04-19 Outpatient LINDA LEW [id number] Linda 11:15:00 11:15:00 TEJAL Seybol d 2022-04-19 2022-04-19 Outpatient LINDA LEW [id number] Linda 00:00:00 00:00:00 TEJAL Seybol d 2022-04-09 2022-04-09 Outpatient OKOUMOU, LINDA BETANCUR [id number] Linda 00:00:00 00:00:00 SHANNON Seybol d 2022-03-16 2022-03-16 Office KETURAH BLACK 1.2.840.114 [id number] Linda 14:30:00 14:30:00 Visit WHARTON 350.1.13.13 [facility] 1.2.7.2.686 [id number] 2022-02-08 2022-02-08 Outpatient LINDA BETANCUR [id number] Linda 09:25:00 09:25:00 Seybol d 2022-02-08 2022-02-08 Outpatient LAB LINDA BETANCUR [id number] Linda 09:20:00 09:20:00 Seybol d 2022-02-08 2022-02-08 Outpatient [id number]-[id number] LINDA BETANCUR [id number] Linda 09:15:00 09:15:00 Seybol d 2022-02-08 2022-02-08 Office ASHLEY Peraza 1.2.840.114 [id number] Linda 08:30:00 09:00:00 Visit Shannon Rojas 350.1.13.13 Seybold 1.2.7.2.686 [id number] 2022-01-02 2022-01-02 Outpatient INJ, LINDA BETANCUR [id number] Linda 08:00:00 08:00:00 ASHLEY Bojorquezybo ld 2022-01-01 2022-01-01 Outpatient INJ, LINDA BETANCUR [id number] Linda 08:00:00 08:00:00 MICHELLETIGIST Bojorquezybo ld 2021-12-29 2021-12-29 Outpatient INJ, LINDA BETANCUR [id number] Linda 09:00:00 09:00:00 MICHELLETIGIST Bojorquezybo edis 2021-12-15 2021-12-15 Outpatient HARRIS, LINDA BETANCUR [id number] Linda 00:00:00 00:00:00 PEYMAN Pelaezol d 2021-12-04 2021-12-04 Outpatient R [facility] [id number] Univers 10:30:00 10:30:[address] [facility] 2021-09-02 2021-09-02 Laboratory Only, Adc Test [facility] 1.2.840. 114 [id number] Univers 11:45:00 12:00:00 Only Chinyere Rios 350.1.13.10 [facility] 4.2.7.2.686 [facility] [id number] [facility] [address] 2021-09-02 2021-09-02 Outpatient R BLANCA [facility] [id number] Univers 11:45:00 11:45:[address] [facility] 2021-09-02 2021-09-02 Letter ELLIOT Lawson 1.2.840.114 [id number] Univers 00:00:00 00:00:00 (Out) Alexia MARQUES 350.1.13.10 [facility] 4.2.7.2.686 [facility] [id number] [facility] [address] 2021-08-31 2021-08-31 Commodities Clerk Only, Adc Pob2 Test [facility] 1.2 .840.114 [id number] Univers 16:15:00 16:15:00 Visit Aryan Vasquez 350.1.13 .10 [facility] [place] [id number] Me dical NAL 225 [facility] 2021-08-31 2021-08-31 Outpatient R [facility] [id number] Univers 16:15:00 15:58:15 ARYAN garsia [facility] 2021-07-10 2021-07-10 Outpatient R [facility] [id number] Univers 10:00:00 10:27:50 KRISTINE nino [facility] 2021-07-10 2021-07-10 Office Luh [facility] [id number] Univers 09:57:32 10:27:50 Visit Kristine [place] 350.1.13.10 i ty [facility] 4[place]2.[place] [id number] Nm dical NAL 134 [facility] 2021-07-03 2021-07-03 Outpatient R CHIN [facility] [id number] Univers 09:30:00 09:30:00 ady VALENTIN [facility] 2021-07-03 2021-07-03 Outpatient R [facility] [id number] Univers 08:00:00 08:00:00 ARYAN garsia [facility] 2021-07-03 2021-07-03 Imm/Inj Nurse, Adc Pob Immunization [facility] 1.2.840.114 [id number] Univers 07:53:18 07:53:44 Visit Aryan Vasquez 350.1.13 .10 [facility] [id number] [phone] Me dical NAL [address] [facility] 2021-06-12 2021-06-12 Imm[facility]In[facility] AM[facility]A 1.2.840.114 [id number] Univers 13:24:16 13:34:16 Visit Sophia Howard [id number] [id number] [facility] [phone] [address] 2021-06-12 2021-06-12 Outpatient R [facility] [id number] Univers 13:30:00 13:30:00 , SOPHIA garisa [facility] 2021-02-09 2021-02-09 Outpatient R [facility] [id number] [facility] 16:00:00 16:00:00 KRISTINE garsia [facility] 2021-02-09 2021-02-09 [facility] 1.2.840.114 [id number] [facility] 08:34:56 09:04:56 ne Visit Kristine [place] [id number] [id number] [phone] Nm dic[address] 2021-01-24 2021-01-24 Telephone [facility] 1.2.840.114 [id number] Univers 00:00:00 00:00:00 Kristine [place] 350.1.13.10 i [place] [phone] Nm dical nal [address] [place] [address] 2021-01-12 2021-01-12 Telephone [facility] 1.2.840.114 [id number] Univers 00:00:00 00:00:00 Kristine [place] 350.1.13.10 [place] [phone] Nm dical [address] 2020-12-01 2020-12-01 Office [facility] 1.2.944.579 [id number] Univers 09:24:27 10:05:00 Visit Kristine [place] 350.1.13.10 [place] [phone] Nm dic[address] 2020-12-01 2020-12-01 Outpatient R [facility] [id number] Univers 09:30:00 09:30:00 KRISTINE garsia [facility] 2020-11-242020-11-24 Outpatient ZAHIDA [facility] [id number] Univers 08:00:00 08:00:00 [facility] 2020-11-03 2020-11-03 Office [facility] 1.2.869.016 [id number] Univers 12:49:27 13:46:06 Visit Kristine Quiroston 350.1.13.10 i ty [facility] [place]2.[place] [phone] Me dical nal [address] [place] [address] 2020-11-03 2020-11-03 Outpatient R [facility] [id number] Univers 13:00:00 13:00:[address] [facility] 2020-11-03 2020-11-03 Orders Doctor ELLIOT 1.2.840.114 [id number] Univers 00:00:00 00:00:00 Only Unassigned, JERALD 350.1.13.10 ity [place] [facility] 4.2.7.2.686 Manjinder as [phone] [address] 2020-10-19 2020-10-19 Outpatient ZAHIDA [facility] [id number] Univers 14:45:00 14:45:00 [facility] 2020-10-08 2020-10-08 [facility] [id number] Univers 08:45:00 08:45:00 [facility] 2020-10-05 2020-10-05 Outpatient ZAHIDA [facility] [id number] Univers 15:30:00 15:30:00 [facility] 2020-09-30 2020-09-30 Outpatient [facility] [id number] Univers 08:45:00 08:45:00 [facility] 2020-09-28 2020-09-28 Orders Doctor ELLIOT 1.2.840.114 [id number] Univers 00:00:00 00:00:00 Only UnassignedJERALD 350.1.13.10 ity [place] [facility] 4.2.7.2.686 Manjinder as [phone] [address] 2020-09-26 2020-09-26 Hospital [facility] 1.2.840.114 [id number] Univers 16:41:05 23:59:00 Encounter Kristine Washington 350.1.13.10 ity [facility] [place].2.7.2.[place] [phone] [facility] [address] [place] 2020-09-26 2020-09-26 Outpatient R [facility] [id number] Univers 00:00:00 00:00:00 KRISTINE ity [facility] 2020-09-26 2020-09-26 Orders Doctor ZARATE 1.2.840.114 [id number] Univers 00:00:00 00:00:00 Only Unassigned, JERALD 350.1.13.10 ity of [place] [facility] 4.2.7.2.686 Manjinder as [phone] [address] 2020-09-26 2020-09-26 Orders Doctor ZARATE 1.2.840.114 [id number] 00:00:00 00:00:00 Only Unassigned, JERALD 350.1.13.10 [place] [facility] 4.2.7.2.686 [phone] [facility] 2020-09-21 2020-09-21 Commodities Clerk Vikash Valenzuela Lab Main [facility] 1.2.8 40.114 [id number] Univers 11:52:07 12:07:07 Visit Zahida Johnson 350.1.13.10 [place] [phone] Nm dical [facility] 2020-09-21 2020-09-21 Commodities Clerk Vikash Valenzuela [facility] 1.2.840.114 [id number] 11:52:07 12:07:07 Visit Lab Main Jeannie 350.1.13.10 [place] 4.2.7.2.686 Professio [phone] [address] 2020-09-21 2020-09-21 Outpatient R [facility] [id number] Univers 12:00:00 12:00:00 ity of [facility] 2020-09-21 2020-09-21 Case Luh [facility] 1.2.320.368 [id number] 0815 Univers 00:00:00 00:00:00 Management Kristine [place] 350.1.13.10 it[place] [phone] Nm dical [address] 2020-09-21 2020-09-21 Case Luh [facility] 1.2.472.886 [id number] 0815 00:00:00 00:00:00 Management Kristine [place] 350.1.13.10 [place] 4.2.7.2.686 Professio [phone] [address] 2020-09-20 2020-09-20 Office Luh [facility] 1.2.114.741 [id number] Univers 14:13:34 15:06:36 Visit Kristine [place] 350.1.13.10 i ty [place] [phone] Nm dic[address] 2020-09-20 2020-09-20 Office Luh [facility] 1.2.134.083 [id number] 14:13:34 15:06:36 Visit Kristine [place] 350.1.13.10 [place] 4.2.7.2.686 Professio [phone] [address] 2020-09-20 2020-09-20 Outpatient R [facility] [id number] Univers 14:15:00 14:15:00 KRISTINE panchaly of [facility] 2020-06-15 2020-06-15 Orders Doctor ELLIOT 1.2.840.114 [id number] Univers 00:00:00 00:00:00 Only Unassigned, JERALD 350.1.13.10 ity of [place] [facility] 4.2.7.2.686 Manjinder as [phone] [address] 2020-06-14 2020-06-14 Patient Zahida Johnson [facility] 1.2.382.945 [id number] Univers 00:00:00 00:00:00 Secure Msg Blayne [place] 350.1.13.10 it[place] [phone] Nm dical nal [address] [place] [address] 2020-06-11 2020-06-11 Outpatient R [facility] [id number] Univers 07:30:00 07:30:00 CHINYERE ity of [facility] 2020-06-11 2020-06-11 Orders Doctor ELLIOT 1.2.840.114 [id number] Univers 00:00:00 00:00:00 Only Unassigned, JERALD 350.1.13.10 ity of [place] [facility] 4.2.7.2.686 Manjinder as [phone] [facility] [address] [place] 2020-06-11 2020-06-11 Telephone ELLIOT Murdock 1.2.738.109 [id number] Univers 00:00:00 00:00:00 Leeanna JERALD 350.1.13.10 it y of HOSPITAL 4.2.7.2.686 Manjinder as [phone] [facility] [address] [place] 2020-06-10 2020-06-10 Telephone Zahida Johnson [facility] 1.2.840.114 [id number] Univers 00:00:00 00:00:00 Cam Jeannie 350.1.13.10 i [place] [phone] Nm dicms nal [address] [place] [address] 2020-05-24 2020-05-24 Office Zahida Johnson [facility] 1.2.315.266 [id number] Univers 11:00:27 11:52:29 Visit Blayne [place] 350.1.13.10 i [place] [phone] Nm dical nal [address] [place] [address] 2020-05-24 2020-05-24 Outpatient R [facility]IDA [facility] [id number] Univers 11:00:00 11:00:00 ity of [facility] 2020-05-24 2020-05-24 Orders Doctor ZARATE 1.2.840.114 [id number] Univers 00:00:00 00:00:00 Only Unassigned, JERALD 350.1.13.10 ity of [place] [facility] 4.2.7.2.686 Manjinder as [phone] [address] 2020-04-19 2020-04-19 Emergency Sow, [facility] 1.2.780.323 [id number] Univers 16:42:00 18:42:00 Joe [place] 350.1.13.10 i ty of [place] 4.2.7.2.686 [facility] [phone] [address] 2020-04-19 2020-04-19 Orders Doctor ELLIOT 1.2.840.114 [id number] Univers 00:00:00 00:00:00 Only Unassigned, JERALD 350.1.13.10 ity of [place] [facility] 4.2.7.2.686 Manjinder as [phone] [address] 2020-02-28 2020-02-29 Emergency Ayo, [facility] 1.2.840.114 [id number] Univers 23:07:00 00:17:00 Sandy [place] 350.1.13.10 ity of [place] 4.2.7.2.686 [facility] [phone] [address] 2020-02-06 2020-02-06 Emergency Yarimo, [facility] 1.2.849.082 [id number] [id number] Univers 14:52:06 18:51:00 Brooks [place] 350.1.13.10 ity of [place] 4.2.7.2.686 [facility] [phone] [address] 2019-12-13 2019-12-13 Emergency Sejal, [facility] 1.2.659.950 [id number] Univers 18:13:53 19:47:00 Gian [place] 350.1.13.10 i ty of [place] 4.2.7.2.686 [facility] [phone] [address] 2019-11-10 2019-11-10 Refrosalba Baird [facility] 1.2.840.114 [id number] Univers 00:00:00 00:00:00 [facility] 350.1.13.10 it y of Surgical 4.2.7.2.686 Manjinder as Specialti [phone] Nm dical es 198 [facility] 2019-10-20 2019-10-20 Telephone [facility] 1.2.140.045 [id number] Univers 00:00:00 00:00:00 [facility] 350.1.13.10 it y of Surgical 4.2.7.2.686 Manjinder as Specialti [phone] Me dical es 198 [facility] 2019-10-15 2019-10-15 [facility]patient [facility] [id number] Univers 13:29:40 23:59:00 SHANELL ity of [facility] 2019-10-15 2019-10-15 [facility] 1.2.840.114 [id number] Univers 13:29:00 23:59:00 Encounter [facility] 350.1.13.10 ity of Surgical 4.2.7.2.686 Manjinder as Specialti [phone] Nm dical es 809 [facility] 2019-10-15 2019-10-15 Office [facility] 1.2.840.114 [id number] Univers 13:24:44 13:48:36 Visit [facility] 350.1.13.10 it y of Surgical 4.2.7.2.686 Manjinder as Specialti [phone] Me dical es 198 [facility] 2019-10-15 2019-10-15 Telephone [facility] 1.2.575.440 [id number] Univers 00:00:00 00:00:00 [facility] 350.1.13.10 it y of Surgical 4.2.7.2.686 Manjinder as Specialti [phone] Me dical es 198 [facility] 2019-10-05 2019-10-05 Letter [facility] 1.2.840.114 [id number] Univers 00:00:00 00:00:00 (Out) Isidra Tittat 350.1.13.10 it y of Surgical 4.2.7.2.686 Manjinder as Specialti [phone] Nm dical es 370 [facility] 2019-10-04 2019-10-04 Urgent Luis Armando Isidra [facility] 1.2.840.114 [id number] Univers 18:42:40 19:03:37 Care Unknown, Attending Health 350.1.13.10 ity of Surgical 4.2.7.2.686 Manjinder as Specialti [phone] Nm dical es 370 [facility] 2019-10-04 2019-10-04 Outpatient R UNKNOWN, [facility] [id number] Univers 18:45:00 18:45:00 ATTENDING ity of [facility] 2019-09-16 2019-09-16 Office [facility] 1.2.840.114 [id number] Univers 15:25:32 16:48:53 Visit [facility] 350.1.13.10 it y of [place] [phone] Medi nadia in [address] [place] [address] 2019-09-03 2019-09-03 Patient [facility] 1.2.840.114 [id number] Univers 00:00:00 00:00:00 Secure Msg [facility] 350.1.13.10 ity of [place].2.[place] [phone] Medi nadia in [address] [place] [address] 2019-08-31 2019-08-31 Hospital [facility] 1.2.714.990 [id number] Univers 09:48:00 23:59:00 Encounter [facility] 350.1.13.10 ity of [place] 4.2.7.2.686 Manjindera mau Rai [phone] Medi nadia [facility] [address] [place] ([facility]) 2019-08-31 2019-08-31 Office [facility] 1.2.840.114 [id number] Univers 07:16:54 08:39:17 Visit [facility] 350.1.13.10 it y of [place].2.[place] [phone] Medi nadia in [address] [place] [address] 2019-08-31 2019-08-31 Telephone [facility] 1.2.840.114 [id number] Univers 00:00:00 00:00:00 [facility] 350.1.13.10 it y of [facility].2.[place] [phone] Medi nadia in [address] [place] [address] 2019-08-31 2019-08-31 Telephone Larisa [facility] 1.2.840.114 [id number] Univers 00:00:00 00:00:00 [facility] 350.1.13.10 it y of [place].2.[place] [phone] [facility] in [address] Luis finn 2019-08-12 2019-08-12 Outpatient [facility] [id number] Common 13:22:00 13:22:00 t [employer] Spir it [address] [facility] 2019-04-11 2019-04-12 Emergency James Smith [facility] 1.2.840.114 [id number] Univers 22:08:04 00:40:00 Health 350.1.13.10 it y of [place] 4.2.7.2.686 [facility] [phone] [facility] [address] (CLC) 2019-04-11 2019-04-11 Nurse Nurse, [facility] 1.2.840. 114 [id number] Univers 20:55:09 21:10:09 Visit Unknown, Attending HEALTH 350.1.13.10 ity of [place] 4.2.7.2.686 [facility] [phone] [facility] Primary & [address] Specialty Care 2019-04-11 2019-04-11 Orders Doctor ELLIOT 1.2.840.114 [id number] Univers 00:00:00 00:00:00 Only Unassigned, JERALD 350.1.13.10 ity of [place] [facility] 4.2.7.2.686 [facility] [phone] [facility] [address] 2019-04-09 2019-04-09 Emergency Critical [facility] Hospital, [facility] 1.2.440.828 [id number] [id number] Univers 19:45:13 21:32:00 Brooks [place] 350.1.13.10 ity of [place] 4.2.7.2.686 [facility] [phone] [facility] [address] 2019-04-09 2019-04-09 Orders Doctor ELLIOT 1.2.840.114 [id number] Univers 00:00:00 00:00:00 Only Unassigned, JERALD 350.1.13.10 ity of [place] [facility] 4.2.7.2.686 Manjinder as [phone] [facility] [address] 2019-03-25 2019-03-25 Transition Olga Grant 1.2.840.114 [id number] Univers 00:00:00 00:00:00 of Care Estefanía Burrows 350.1.13.10 i ty of [place].2.[place] [phone] [facility] [address] 2019-03-25 2019-03-25 Orders Doctor ELLIOT 1.2.840.114 [id number] Univers 00:00:00 00:00:00 Only Unassigned, JERALD 350.1.13.10 ity of [place] [facility] 4.2.7.2.686 Manjinder as [phone] [facility] [address] 2019-03-23 2019-03-24 Hospital Baba [facility] 1.2.840.114 [id number] Univers 12:20:33 13:38:00 [facility]counter [facility] 350.1.13.10 [place] Rai [phone] [facility] [address] (CLC) 2019-03-20 2019-03-20 Emergency Filiberto [facility] 1.2.297.120 [id number] Univers 13:09:21 16:56:00 Vika Health 350.1.13.10 it y of [place]2.7.2.[place] Rai [phone] [facility] [address] (CLC) 2019-03-15 2019-03-17 Hospital Jory Luis [facility] 1.2.84 0.114 [id number] Univers 18:47:40 18:38:00 Encounter u Gadiel [facility] 350.1.13. 10 [place] Rai [phone] [facility] [address] (CLC) 2019-02-26 2019-02-26 Out[facility] [id number] Common 10:00:00 10:00:00 [employer]cr[employer] 2019-02-20 2019-02-20 Office Joyce [facility] 1.2.840.114 [id number] Univers 11:06:46 11:21:46 Visit [facility] 350.1.13.10 it y of Surgical 4.2.7.2.686 Manjinder as Specialti [phone] Nm dical es 198 [place] 2019-01-14 2019-01-14 Outpatient [facility] [id number] Common 10:00:00 10:00:[address] [facility] 2018-08-04 2018-08-04 Outpatient [facility] [id number] Common 14:30:00 14:30:[address] [facility] 2018-03-26 2018-03-26 Outpatient [facility] 15 [id number] Common 13:45:00 13:45:[address] [facility] 2018-01-08 2018-01-08 Outpatient [facility] [id number] Common 11:30:00 11:30:[address] [facility] 2017-11-25 2017-11-25 Outpatient [facility] 13 [id number] Common 13:00:00 13:00:[address] [facility] 2017-10-14 2017-10-14 Outpatient [facility] [id number] Common 11:15:00 11:15:[address] [facility] 2017-10-14 2017-10-14 Outpatient [facility] 13 [id number] Common 09:22:00 09:22:[address] [facility] Results Test Description Test Time Test Comments Results Result [facility] e Comments - DUP AB/PEL/SC/LTD 2019-06-24 Patient Name: 22:15:00 LUDWIG MONTANEZ Unit No: [id number] EXAMS: CPT CODE: [id number] DUP AB/PEL/SC/LTD 26228 PROCEDURE: PELVIC ULTRASOUND INDICATION: Left lower quadrant [...] pelvic fluid. IMPRESSION: Normal pelvic ultrasound. SL: BRITTANEY-Chicho at 5871 Reported and signed by: Rojas Galindo MD CC: Franco Swan MD Technologist: Inga Vega RDMS Probe: Trnscrbd D/ (9355) t.[id number].[email or web address] Orig Print D/T: S: 06/24/2019 (3701) [facility] NAME: XAVIERLUDWIG Radiology Department PHYS: Kenzie Banda [address] : 2000 AGE: 19 SEX: F [place] [address] LOC: MAGGI PHONE #: [phone] EXAM DATE: 06/24/2019 STATUS: REG ER FAX #: [phone] RAD NO: Page 1 Signed Report Patient Name: LUDWIG MONTANEZ Unit No: [id number] EXAMS: CPT CODE: [id number] DUP AB/PEL/SC/LTD 04249 (Continued) [facility] NAME: [place] Radiology Department PHYS: Kenzie Banda [address] : 2000 AGE: 19 SEX: F [place], [place] [address] LOC: EdwardERS PHONE #: [phone] EXAM DATE: 06/24/2019 STATUS: REG ER FAX #: [phone] RAD NO: Page 2 Signed Report - US TRANSVAGINAL 2019-06-24 Patient Name: W/PELVIS 22:15:00 LUDWIG MONTANEZ Unit No: [id number] EXAMS: CPT CODE: [id number] US TRANSVAGINAL W/PELVIS 74481 PROCEDURE: PELVIC ULTRASOUND INDICATION: Left lower quadrant [...] IMPRESSION: Normal pelvic ultrasound. SL: SG-H at 2217 Reported and signed by: Rojas Galindo MD CC: Franco Swan MD Technologist: Inga Vega RDMS Probe: [id number] Trnscrbd D/ (2210) [email or web address] Orig Print D/T: S: 06/24/2019 (7087) [facility] NAME: LUDWIG MONTANEZ Radiology Department PHYS: Kenzie Banda [address] : 2000 AGE: 19 SEX: F [place], [place] [address] LOC: MAGGI PHONE #: [phone] EXAM DATE: 06/24/2019 STATUS: REG ER FAX #: [phone] RAD NO: Page 1 Signed Report Patient Name: LUDWIG MONTANEZ Unit No: [id number] EXAMS: CPT CODE: [id number] US TRANSVAGINAL W/PELVIS 04488 (Continued) [facility] NAME: LUDWIG MONTANEZ Radiology Department PHYS: Kenzie Banda ro [address] : 2000 AGE: 19 SEX: F [place], [place] [address] LOC: MAGGI PHONE #: [phone] EXAM DATE: 06/24/2019 STATUS: REG ER FAX #: [phone] RAD NO: Page 2 Signed Report - US PELVIS 2019-06-24 Patient Name: COMPLETE 22:15:00 LUDWIG MONTANEZ Unit No: [id number] EXAMS: CPT CODE: [id number] US PELVIS COMPLETE 43539 PROCEDURE: PELVIC ULTRASOUND INDICATION: Left lower quadrant [...] Inga Vega RDMS Probe: Trnscrbd D/ (2215) [id number] Orig Print D/T: S: 06/24/2019 (2218) [facility] NAME: LUDWIG MONTANEZ Radiology Department PHYS: Kenzie Banda ro [address] : 2000 AGE: 19 SEX: F [place], [place] [address] LOC: MAGGI PHONE #: [phone] EXAM DATE: 06/24/2019 STATUS: REG ER FAX #: [phone] RAD NO: Page 1 Signed Report Patient Name: LUDWIG MONTANEZ Unit No: [id number] EXAMS: CPT CODE: [id number] US PELVIS COMPLETE 61340 (Continued) [facility] NAME: LUDWIG MONTANEZ Radiology Department PHYS: Kenzie Banda ro [address] : 2000 AGE: 19 SEX: F [place] [address] LOC: MAGGI PHONE #: [phone] EXAM DATE: 06/24/2019 STATUS: REG ER FAX #: [phone] RAD NO: Page 2 Signed Report DRUGS [...] ng/mL PHENCU) UA RFLX MICR CULT IF [id number] 21:57:00 Test Item Value Reference Range Interpretation [...] RARE-FEW Indication for culture: Suprapubic PainUR HCG [id number] 21:55:00 Test Item Value Reference Range Interpretation [...] 48 hours later and tested. COMPREHENSIVE METABOLIC [id number] 21:46:00 Test Item Value Reference Range Interpretation [...] 46-116 N code = ALKP) CBC W/AUTO [id number] 21:41:00 Test Item Value Reference Range Interpretation [...] = PLTMR) - MRI LW JNT W/CONTRAST [id number] 13:59:00 Patient Name: LUDWIG MONTANEZ Unit No: [id number] EXAMS: CPT CODE: [id number] MRI LW JNT W/[place] [address] RIGHT HIP ARTHROGRAM AND MARCAINE INJECTION DIAGNOSIS: [...] joint. No immediate complications were encountered. MRI OFTHE RIGHT HIP POST ARTHROGRAPHY TECHNIQUE: Multiplanar multisequence MR images of the right hip wereobtained following intra-articular administration of gadolinium contrast (see [...] degrees Lateral Center Edge Angle (normal=25-39 degrees): 49degrees Extraarticular Hip Impingement: No osseous proliferation of the anterior inferior iliac spine. Iliopsoas tendon is unremarkable. No evidence of ischiofemoral impingement. Tendons: Visualized glu teal and hamstring tendons are maintained. Bursitis: No significant trochanteric or iliopsoas bursitis. Muscles: Signal intensity and volume are preserved. [facility] NAME: LUDWIG MONTANEZ [address] [facility] PHYS: Anibal Leslie : 2000 AGE: 19 SEX: F [place], [place] LOC: Y.RAD PHONE #: [phone] EXAM DATE: 04/22/2019 STATUS: REG CLI FAX #: [phone] RAD #: D/C DT PAGE 1 Signed Report (CONTINUED) Patient Name: LUDWIG MONTANEZ Unit No:[id number] EXAMS: CPT CODE: [id number] MRI LW JNT W/[place] [address] <Continued> Other: Partially visualized intrapelvic structures are unremarkable. IMPRESSION: Pincer-type impingement with labral tearing and a labral cyst at 1359 Reported and signed by: Elliott Rajput MD CC: Anibal Cruz MD; Pipo Hare MD Technologist: Joshua Novak(R) Transcribed D/ (5281) tCRISTIANO.[facility] [place] [facility] NAME: LUDWIG MONTANEZ [address] [place] [address] PHYS: Anibal Leslie : 2000 AGE: 19 SEX: F [place], [place] [address] LOC: Y.RAD PHONE #: [phone] EXAM DATE: 04/22/2019 STATUS: REG CLI FAX #: [phone] RAD #: D/C DT PAGE 2 Signed Report Patient Name: LUDWIG MONTANEZ Unit No: [id number] EXAMS: CPT CODE: [id number] MRI LW JNT W/[place] [address] <Continued> Orig Print D/T: S: 04/22/2019 (0283) [facility] NAME: LUDWIG MONTANEZ [facility] [facility] PHYS: Anibal Leslie : 2000 AGE: 19 SEX: F [place], [place] [address] LOC: Y.RAD PHONE #: [phone] EXAM DATE: 04/22/2019 STATUS: REG CLI FAX #: [phone] RAD #: D/C DT PAGE 3 Signed Report- XR ARTHROGRAM HIP W/O AN RT+2019-04-22 13:59:00 Patient Name: LUDWIG MONTANEZ Unit No: [id number] EXAMS: CPT CODE: [id number] XR ARTHROGRAM HIP W/O AN RT+ 51813 RIGHT HIP ARTHROGRAM AND MARCAINE INJECTION DIAGNOSIS: No definite abnormality. COMMENT: COMPARISON: No prior exams available. After informed consent was obtained a single-contrast arthrogramwas performed with equal parts Isovue-300 and dilute gadolinium by . 0.6 minutes of fluoroscopy time was utilized. The normal recesses were opacified. An AP radiograph was obtained. Subsequently 2 mL of 0.75% Marcaine was injected into the joint. No immediate complications were encountered. MRI OF THE RIGHT HIP POST ARTHROGRAPHY TECHNIQUE: Multiplanar multisequence MR images of the right hipwere obtained following intra-articular administration of gadolinium contrast (see separately dictated procedure note for details). Images were then viewed on the PACS workstation in the axial, coronaland sagittal planes. COMPARISON: None available. FINDINGS: Bone: Marrow signal intensity is normal. Cartilage: No focal hyaline cartilage defects are seen. Labrum: The labrum is torn superiorly and anterior superiorly with a 2.2 cm anterior superior labral cyst. Femoroacetabular Impingement Assessment: Alpha Angle (normal= <55 degrees) : 48 degrees Lateral Center Edge Angle (normal=25-39 degrees):49 degrees Extraarticular Hip Impingement: No osseous proliferation of the anterior inferior iliac spine. Iliopsoas tendon is unremarkable. No evidence of ischiofemoral impingement. Tendons: Visualizedgluteal and hamstring tendons are maintained. Bursitis: No significant trochanteric or iliopsoas bursitis. Muscles: Signal intensity and volume are preserved. [facility] NAME: LUDWIG MONTANEZ [address] [facility] PHYS: Anibal Leslie : 2000 AGE: 19 SEX: F [place], [place] [address] LOC: Y.RAD PHONE #: [phone] EXAM DATE: 04/22/2019 STATUS: REG CLI FAX #: [phone] RAD #: D/C DT PAGE 1 Signed Report (CONTINUED) Patient Name: LUDWIG MONTANEZ Unit No: [id number] EXAMS: CPT CODE: [id number] XR ARTHROGRAM HIP W/O AN RT+ 43509 <Continued> Other: Partially visualized intrapelvic structures are unremarkable. IMPRESSION: Pincer-type impingement with labral tearing and a labral cyst at 1359 Reported and signed by: Elliott Rajput MD CC: Anibal Cruz MD; Pipo Cisneros MD Technologist: Valencia Kan, RT.(R) Transcribed D/ (4586) t.SDR.JCL [facility] NAME: LUDWIG MONTANEZ [address] [place] [address] PHYS: Anibal Leslie : 2000 AGE: 19 SEX: F [place] [address] LOC: Y.RAD PHONE #: [phone] EXAM DATE: 04/22/2019 STATUS: REG CLI FAX #: [phone] RAD #: D/C DT PAGE 2 Signed Report Patient Name: LUDWIG MONTANEZ Unit No: [id number] EXAMS: CPT CODE: [id number] XR ARTHROGRAM HIP W/O AN RT+ 44820 <Continued> Orig Print D/T: S: 04/22/2019 (3479) [facility] NAME: LUDWIG MONTANEZ [address] [facility] PHYS: Anibal Leslie : 2000 AGE: 19 SEX: F [place] [address] LOC: Y.RAD PHONE #: [phone] EXAM DATE: 04/22/2019 STATUS: REG CLI FAX #: [phone] RAD #: D/C DT PAGE 3 Signed ReportAG HLA [id number] 17:10:00 Test Item Value Reference Range Interpretation Comments AG HLA B-27 Negative () HLA-B*27 Negati veB27 allele (test code = interpretation for all loci based HLAB27) on IMGT/HLAdata base version 3.35This test w as developed and its performance characteristics determined by [facility]. It has not been cleared or approved[facility] Food and Drug Administration. [facility] Lab CLIA ID Number [id number] test was performed using PCR (Polymerase ChainReaction)/ SSOP (Sequence Specific Oligon ucleotide Probes)techniqu e. SBT (Sequence Based Typing) a nd/or SSP(Sequence Specific Primer s) may be used as supplementalmet hods when necessary. Karina bojorquez contact HLA CustomerService at if you have any questions. Director of HLA Laboratory Dr Brett Kaufman, PhDPerformed At: 2Q [facility] [id number] [facility] [place], [place] [id number] Angela Mcclure PhD Ph:[phone] - MRI L-SPINE W/O [id number] 08:48:00 Patient Name: LUDWIG MONTANEZ Unit No: [id number] Report Has Been Amended EXAMS: CPT CODE: [id number] MRI L-SPINE W/O CONT 44364 Addendum - 04/08/2019 SIGNED 04/08/2019 ADDENDUM: [id number] MRI/MRILSPNWO Addendum: MRI of the lumbar spine [...] OF THE LUMBAR SPINE: DIAGNOSIS: 1. At L1- 2, no disc bulge or herniation. No central [...] There is a dextroscoliosis of the proximal thoracicspine. 7. PARTIALLY VISUALIZED MULTISEPTATE CYST IS PRESENT [...] and T2-weighted sequences are obtained of the lumbarspine. [facility] NAME: LUDWIG MONTANEZ [address] [place] [address] PHYS: Deb Harding MD : 2000 AGE: 19 SEX: F [place] [address] LOC: Y.510 A PHONE #: [phone] EXAM DATE: 04/06/2019 STATUS: DIS IN FAX #: [phone] RAD #: D/C DT 04/07/2019 PAGE 1 Signed Report (CONTINUED) Patient Name: LUDWIG MONTANEZ Unit No: [id number] Report Has Been Amended EXAMS: CPT CODE: [id number] MRI L-SPINE W/O CONT 48341 <Continued> The lumbar vertebrae arewithin normal limits in signal. The findings are as above. The conus is in the expected location. at 0953 Reported and signed by: Angela Feliciano MD CC: Anibal Cruz MD; Deb Mendes MD; Pipo Hare MD Technologist: Joshua Novak(Jazmin) Transcribed D/ (0953) Caitlyn.GVG [facility] NAME: LUDWIG MONTANEZ [address] [place] [address] PHYS: Deb Harding MD : 2000 AGE: 19 SEX: F [place] [address] LOC: Y.510 A PHONE #: [phone] EXAM DATE: 04/06/2019 STATUS:DIS IN FAX #: [phone] RAD #: D/C DT 04/07/2019 PAGE 2 Signed Report Patient Name: Fco MONTANEZ No: [id number] Report Has Been Amended EXAMS: CPT CODE: [id number] MRI L-SPINE W/O CONT 35515 <Continued> Orig Print D/T: S: 04/07/2019 (1106) [facility] NAME: LUDWIG MONTANEZ [address] [place] [address] PHYS: Deb Harding MD : 2000 AGE: 19 SEX: F [place] [address] LOC: Y.510 A PHONE #: [phone] EXAM DATE: 04/06/2019 STATUS: DIS IN FAX #: [phone] RAD #: D/C DT 04/07/2019 PAGE 3 Signed Report- XR PELVIS 1/2 [id number] 13:41:00 Patient Name: LUDWIG MONTANEZ Unit No: [id number] EXAMS: CPT CODE: [id number] XR PELVIS 1/2 VIEWS 88874 IMAGES PROVIDED: 1 FINDINGS: No acute fracture or malalignment. Hip joints are normal. The sacroiliac joints are within normal limits. No osseous erosion is visualized. Bone mineralization is within normal limits. Soft tissues are unremarkable. IMPRESSION: No evidence of sacroiliitis. at 1341 Reported and signed by: Awais Mendes M.D. CC: Anibal Cruz MD; Deb Mendes MD; Pipo Hare MD Technologist: AILEEN ORDOÑEZ. RT(R) Transcribed D/ (9511) Riana [facility] NAME: LUDWIG MONTANEZ [address] [facility] PHYS: Deb Harding MD : 2000 AGE: 19 SEX: F [place] [address] LOC: Y.510 A PHONE #: [phone] EXAM DATE: 04/06/2019 STATUS: DIS INFAX #: [phone] RAD #: D/C DT 04/07/2019 PAGE 1 Signed Report Patient Name: LUDWIG MONTANEZ Unit No: [id number] EXAMS: CPT CODE: [id number] XR PELVIS 1/2 VIEWS 17618 <Continued> Orig Print D/T: S: 04/07/2019 (1430) [facility] NAME: LUDWIG MONTANEZ [address] [facility] PHYS: Deb Harding MD : 2000 AGE: 19 SEX: F [place] [address] LOC: Y.510 A PHONE #: [phone] EXAM DATE: 04/06/2019 STATUS: DIS IN FAX #: [phone] RAD #: D/C DT 04/07/2019 PAGE 2 Signed Report- MRI L- SPINE W/O [id number] 09:53:00 Patient Name: LUDWIG MONTANEZ Unit No: [id number] EXAMS: CPT CODE: [id number] MRI L-SPINE W/O CONT 83219 MRI OF THE LUMBAR SPINE: DIAGNOSIS: 1. At L1-2, no disc bulge or herniation. No central canal or for aminal stenosis. 2. At L2-3, the L2-3 disc [...] BEST SEEN ON AXIAL T2-WEIGHTED SEQUENCE IMAGES 4548 45-48 45-48. THIS MAY BE FURTHER EVALUATED [...] Feliciano MD CC: Anibal Cruz MD; Deb Mendes MD; Pipo Hare MD Technologist: Joshua Novak(R) Transcribed D/ (1753) ParulGVG [facility] NAME: LUDWIG MONTANEZ [address] [place] [address] PHYS: Deb Harding MD : 2000 AGE: 19 SEX: F [place] [address] LOC: YAsiya A PHONE #: [phone] EXAM DATE: 0 04/06/2019 STATUS: ADM IN FAX #: [phone] RAD #: D/C DT PAGE 1 Signed Report Patient Name: LUDWIG MONTANEZ Unit No: [id number] EXAMS: CPT CODE: [id number] MRI L- SPINE W/O CONT 92614 <Continued> Orig Print D/T: S: 04/07/2019 (1106) [facility] NAME: LUDWIG MONTANEZ [address] [place], [place] [address]PHYS: Deb Harding MD : 2000 AGE: 19 SEX: F [place] [address] LOC: Y.510 A PHONE #: [phone] EXAM DATE: 04/06/2019 STATUS: ADM IN FAX #: [phone] RAD #: D/C DT PAGE 2 Signed Report- MRI LW JNT W WO CONT [id number] 14:25:00 Patient Name: LUDWIG MONTANEZ Unit No: [id number] EXAMS: CPT CODE: [id number] [place] [address] TECHNIQUE: Multiplanar multisequence images of the right [...] high-grade cartilage loss. No significant joint effusion. I MPRESSION: Postoperative changes involving the proximal tibia with nonspecific edema and a small amount of fluid anterior to the tibial tuberosity. This is nonspecific and may be postoperative. Cellulitis is not excluded. No MR findings of osteomyelitis visualized. at 9894 Reported and signed by: Awais Mendes M.D. CC: Anibal Cruz MD; Pipo Hare MD Technologist: RIZWAN ADAMS RT(R) Transcribed D/ (7655) Riana [facility] NAME: LUDWIG MONTANEZ [address] [place] [address] Main PHYS: Anibal Rooney : 2000 AGE: 19 SEX: F [place] [address] LOC: Y.510 A PHONE #: [phone] EXAM DATE: 04/06/2019 STATUS: ADM IN FAX #: [phone] RAD #: D/C DT PAGE 1 Signed Report Patient Name: LUDWIG MONTANEZ Unit No: [id number] EXAMS: CPT CODE: [id number] [place] [address] <Continued> Orig Print D/T: S: 04/06/2019 (8022) [facility] NAME: LUDWIG MONTANEZ [address] [facility] [address] PHYS: Anibal Leslie : 2000 AGE: 19 SEX: F [place] [address] LOC: YAsiya Quevedo PHONE #: [phone] EXAM DATE: 04/06/2019 STATUS: ADM IN FAX #: [phone] RAD #: D/C DT PAGE 2 Signed ReportBLOOD UREA [id number] 10:31:00 Test Item Value Reference Range Interpretation Comments BLOOD UREA NITROGEN (test code = BUN) 7 mg/dL 7-18 N CREATININE W ESTIMATED [id number] 10:31:00 Test Item Value Reference Range Interpretation Comments GLOMERULAR FILTRATION 105.6 >60 Unit o f measure: RATE (test code = GFR) mL/mi n/1.73 [id number] Range:Healthy A dults >90 mL/min/1.73 m2 For Chronic Kid lindsey Disease: Stage II Mild Decrease i n GFR 60-90 Stage III Moderate Decrea se in GFR 30-59 Stage IV Severe Decrease in GFR 15-29 Stage V Kidney Failure <15 CREATININE (test code = 0.70 mg/dL 0.55-1.30 N CREAT) SYNOVIAL FLD CELL [id number] 07:34:00 Test Item Value Reference Range Interpretation Comments SYNOVIAL FLD COLOR (test code = BLOODY () COLSY) SYNOVIAL FLD APPEARANCE (test code BLOODY () = APPSY) SYNOVIAL FLD WBC (test code = 0 /mm3 >0 WBCSY) SYNOVIAL FLD RBC (test code = 79881 /mm3 >0 RBCSY) SYNOVIAL FLD CELL [id number] 13:25:00 Test Item Value Reference Range Interpretation Comments SYNOVIAL FLD COLOR (test code = () COLSY) SYNOVIAL FLD APPEARANCE (test code () = APPSY) SYNOVIAL FLD WBC (test code = 0 /mm3 >0 WBCSY) SYNOVIAL FLD RBC (test code = 39250 /mm3 >0 RBCSY) SYNOVIAL FLD [id number] 13:24:00 Test Item Value Reference Range Interpretation Comments SYNOVIAL FLD COLOR (test code = COLSY) BLOODY SYNOVIAL FLD [id number] 13:24:00 Test Item Value Reference Range Interpretation Comments SYNOVIAL FLD APPEARANCE (test code = BLOODY APPSY) SYNOVIAL FLD [id number] 13:24:00 Test Item Value Reference Range Interpretation Comments SYNOVIAL FLD WBC (test code = WBCSY) 0 /mm3 >0 SYNOVIAL FLD [id number] 13:24:00 Test Item Value Reference Range Interpretation Comments SYNOVIAL FLD RBC (test code = 15746 /mm3 >0 RBCSY) SED [id number] 12:17:00 Test Item Value Reference Range Interpretation Comments SED RATE (test code = SEDW) 1 mm/hr 0-20 N SED [id number] 12:17:00 Test Item Value Reference Range Interpretation Comments SED RATE (test code = SEDW) 1 mm/hr 0-20 C REACTIVE [id number] 11:23:00 Test Item Value Reference Range Interpretation Comments C REACTIVE PROTEIN (test code = <0.2 mg/dL 0.6-1.2 L CRP) C REACTIVE [id number] 11:23:00 Test Item Value Reference Range Interpretation Comments C REACTIVE PROTEIN (test code = < 0.2 mg/dL 0.6-1.2 L CRP) - US PELVIS [id number] 11:44:00 Patient Name: LUDWIG MONTANEZ Unit No: [id number] EXAMS: CPT CODE: [id number] US PELVIS COMPLETE [id number] ULTRASOUND, 12/02/2018: COMPARISON: October 14, 2017 CLINICAL HISTORY: Dysfunctional uterine bleeding TECHNIQUE: Transabdominal and endovaginal scanning was performed. FINDINGS: The uterus measures5.3 x 2.1 x 3.0 cm. The endometrial stripe measured 7 mm. The endometrium is dynamic containing a pro bable blood clot. Endometrium is not hypervascular. No [...] as described. at 1144 Reported and signed by:Josh Zapien MD CC: Elliot Malik III, MD Technologist: Sari Mcginnis RDMS Probe: Trnscrbd D/ (1027) t.SDR.AJ13 Orig Print D/T: S: 12/02/2018 (1148) [facility] NAME: LUDWIG MONTANEZ Radiology Department PHYS: Elliot Morales III, MD [address] : 2000 AGE: 18 SEX: F [place], [place] [address] LOC: EdwardRAD PHONE #: [phone] EXAM DATE: 12/02/2018 STATUS: REG CLI FAX #: [phone] RAD NO: Page 1 Signed Report Patient Name: LUDWIG MONTANEZ Unit No: [id number] EXAMS: CPT CODE: [id number] US PELVIS COMPLETE 27601 (Continued) [facility] NAME: LUDWIG MONTANEZ Radiology Department PHYS: Elliot Morales III, MD [address] : 2000 AGE: 18 SEX: F [place], [place] [address] LOC: EdwardRAD PHONE #: [phone] EXAM DATE: 12/02/2018 STATUS: REG CLI FAX #: [phone] RAD NO: Page 2 Signed Report- US TRANSVAGINAL W/[id number] 11:44:00 Patient Name: LUDWIG MONTANEZ Unit No: [id number] EXAMS: CPT CODE: [id number] US TRANSVAGINAL W/PELVIS 33492 PELVIC ULTRASOUND, 12/02/2018: COMPARISON: October 14, 2017 CLINICAL HISTORY: Dysfunctional uterinebleeding TECHNIQUE: Transabdominal and endovaginal scanning was performed. [...] endometrium as described. at 1144 Reported and signedby: Josh Zapien MD CC: Elliot Malik III, MD Technologist: Sari Mcginnis [facility] Probe: [id number] Trnscrbd D/ (1144) ParulAJ13 Orig Print D/T: S: 12/02/2018 (1148) [facility] NAME: FAYLUWDIG Radiology Department PHYS: Elliot Morales III, MD [address] : 2000 AGE: 18 SEX: F [place], [place] [address] LOC: EdwardRAD PHONE #: [phone] EXAM DATE: 12/02/2018 STATUS: REG CLI FAX #: [phone] RAD NO: Page 1 Signed Report Patient Name: LUDWIG MONTANEZ Unit No: [id number] EXAMS: CPT CODE: [id number] US TRANSVAGINAL W/PELVIS 72968 (Continued) [facility] NAME: FAYLUDWIG Radiology Department PHYS: Elliot Morales III, MD [address] : 2000 AGE: 18 SEX: F [place] [address] LOC: EdwardRAD PHONE #: [phone] EXAM DATE: 12/02/2018 STATUS: REG CLI FAX #: [phone] RAD NO: Page 2 Signed Report Notes Date/Time Note Provider Source 2019-06-24 21:36:00-00:00 [facility] EMERGENCY PROVIDER REPORT REPORT#:[id number] REPORT STATUS: Signed DATE:06/24/19 TIME: 2135 PATIENT: LUDWIG MONTANEZ UNIT #: [id number] ROOM/BED: AGE: 19 SEX: F PCP PHYS: DOES_NOT KNOW SERVICE AUTHOR: Shamir Swan MD * ALL edits or amendments must be made on the el ectronic/computer document * HPI-General Illness General Initial Greet Date/Time 06/24/192032 Presentation Chief Complaint Pelvic pain Context Additional Context 19 years old patient past me dical hx of ovarian torsion presents complaining of 1 day of intense left lower quadrant pain, no radiation, pain is constant rated as 10/10,associated to nausea,no urinary symptom s , vaginal bleeding or any other complaints. Review of Systems ROS Statements All systems rev neg except as marked. Free Text ROS Notes Free Text ROS Notes CONSTITUTIONAL: Normal; negative for fev er, weight change, fatigue, or aching. HEENT: Eyes normal; Negative for glasses, catara cts, glaucoma, retinopathy, irritation, or visual field defects. Ears normal ; Negative for hearing or balance problems. Nose normal; Negative for runn y nose, sinus problems, or nosebleeds. Mouth normal; Negative for dental pr oblems, dentures, or bleeding gums. Throat normal; Negative for hoarseness, di fficulty swallowing, or sore throat. CARDIOVASCULAR: Normal; Negative for ang dariana, previous OR, irregular heartbeat, heart murmurs, bad heart valves, palpitations, s welling of feet, high blood pressure, orthopnea, paroxysmal nocturnal dyspne a, or history of stress test, arteriogram, or pacemaker implantation. PULMONARY: Normal; Negative for cough, sputum, s hortness of breath, wheezing, asthma, or emphysema. GASTROINTESTINAL: Normal; Negative for p ain, vomiting, heartburn, peptic ulcer disease, change in stool, rectal pain, h ernia, hepatitis, gallbladder disease, hemorrhoids, or bleeding. GENITOURINARY: Normal female OR male; Ne gative for incontinence, UTI, dysuria, hematuria, vaginal discharge , abnormal bleeding, breast lumps, nipple discharge, skin or nipple changes, sexually transmitted dis eases, incontinence, yeast infections, or itching. SKIN: Normal; Negative for rashes, keratoses, sk in cancers, or acne. MUSCULOSKELETAL: Normal; Negative for back pain, joint pain, joint swelling, arthritis, joint deformity, problems wit h ambulation, stiffness, osteoporosis, or injuries. NEUROLOGIC: Normal; Negative for blackouts, head aches, seizures, stroke, or dizziness. PSYCHIATRIC: Normal; Negative for anxiety, depre ssion, or phobias. ENDOCRINE: Normal; Negative for diabetes, thyroid, or problems with cholesterol or hormones. HEMATOLOGIC/LYMPHATIC: Normal; Negative for anem ia, swollen glands, or blood disorders. IMMUNOLOGIC: Negative; Negative for steroids, ch emotherapy, or cancer. VASCULAR: Normal; Negative f or varicose veins, blood clots, atherosclerosis, or leg ulcers. Past Medical History - Adult Stated Complaint LEFT ABDOMEN PAIN Allergies Coded Allergies: Penicillins (Severe, ANAPHYLAXIS, RASH 04/22/19) sulfamethoxazole (From BACTRIM) (Intermediate, H ROSMERY 04/22/19) trimethoprim (From BACTRIM) (Intermediate, HIVES 04/22/19) vancomycin (Intermediate, HIVES 04/22/19) acetaminophen (From TYLENOL #3) (Mild, HIVES ) codeine (From TYLENOL #3) (Mild, HIVES 04/22/19) prednisone (Mild, HIVES 04/22/19) Home Medications Reported Medications medroxyPROGESTERone (DEPO-PROVERA) 150 MG IM Q90 D IBUPROFEN (MOTRIN) 800 MG PO Q6H PRN PRN PAIN Physical Exam Vital Signs Vital Signs First Documented: Result Date Time Pulse Ox 100 06/24 2045 B/P 146/85 06/24 2045 B/P Mean 105 06/24 2045 O2 Delivery Room air 06/24 2045 Temp 36.6 06/24 2045 Pulse 83 06/24 2045 Resp 16 06/24 2045 Last Documented: Result Date Time Pulse Ox 100 06/24 2255 B/P 124/76 06/24 2255 B/P Mean 92 06/24 2255 Pulse 72 06/24 2255 Resp 16 06/24 2255 O2 Delivery Room air 06/24 2045 Temp 36.6 06/24 2045 Review of Vital Signs Reviewed, Vital signs norm al Basic Physical Exam Basic PE GEN: Well appearing/NAD, HEAD: Atraumat ic/NC, ENT: Membranes moist, RESP: No resp distress, CV: Reg rate rhythm, ABD : Soft/non-tender, EXT: No gross abnormality, SKIN: No rashes, warm/dry, NE URO: alert oriented, NEURO: gross movement NL Interpretation Diagnostics Lab Results Interpretation Results Laboratory Tests 06/24/192105: [Embedded Image Not Available] Laboratory Tests: 06/24 Chemistry Sodium (135 - 145 mEq/L) 141 Potassium (3.5 - 5.0 mEq/L) 3.5 Chloride (100 - 115 mEq/L) 105 Carbon Dioxide (22 - 31 mEq/L) 25 Anion Gap (10 - 20) 14.50 BUN (7 - 18 mg/dL) 13 Creatinine (0.5 - 1.0 mg/dL) 0.7 Glomerular Filtr Rate (>60 ml/min) 106 Glucose (65 - 110 mg/dL) 78 Calcium (8.4 - 10.2 mg/dL) 9.3 Total Bilirubin (0.2 - 1.0 mg/dL) 0.2 AST (15 - 37 units/L) 14 L ALT (12 - 78 units/L) 23 Total Alk Phosphatase (46 - 116 units/L) 82 Total Protein (6.3 - 8.2 gm/dL) 7.4 Albumin (3.4 - 4.8 gm/dL) 4.3 Hematology WBC (6.6 - 12.1 K/mm3) 10.8 RBC (3.45 - 5.01 M/mm3) 4.59 Hgb (10.7 - 13.9 g/dL) 12.2 Hct (32.1 - 42.1 %) 39.8 MCV (84.1 - 94.8 fL) 87 MCH (27 - 35 pg) 26.6 L MCHC (32.2 - 34.1 gm/dL) 30.7 L RDW (12.4 - 16.5 %) 14.5 Plt Count (133 - 385 K/mm3) 449 H MPV (9.1 - 12.7 fl) 9.7 Neut % (Auto) (56.5 - 79.4 %) 58.6 Lymph % (Auto) (14.3 - 34.3 %) 32.1 [place] % (Auto) (5.1 - 10.4 %) 7.0 Eos % (Auto) (0.1 - 3.0 %) 1.6 Baso % (Auto) (0.1 - 1.0 %) 0.5 Neut # (Auto) (K/mm3) 6.4 Lymph # (Auto) (K/mm3) 3.5 [place] # (Auto) (K/mm3) 0.8 Eos # (Auto) (K/mm3) 0.17 Baso # (Auto) (K/mm3) 0.1 Immature Plt Fraction (0.0 - 10.8 %) 0.0 Toxicology Urine Opiates Screen (NEGATIVE) NEGATIVE Ur Barbiturates, Qual (NEGATIVE) NEGATIVE Ur Phencyclidine Scrn (NEGATIVE) NEGATIVE Ur Amphetamines Screen (NEGATIVE) NEGATIVE U Benzodiazepines Scrn (NEGATIVE) NEGATIVE Urine Cocaine Screen (NEGATIVE) NEGATIVE Urine Cannabinoids (NEGATIVE) NEGATIVE Urines Urine Color (YELLOW) STRAW Urine Appearance (CLEAR) CLEAR Urine pH (5 - 9) 6.0 Ur Specific [place] (1.001 - 1.035) 1.009 Urine Protein (NEG) NEGATIVE Urine Glucose (UA) (NEG) NEGATIVE Urine Ketones (NEG) NEGATIVE Urine Blood (NEG) NEG Urine Nitrite (NEG) NEG Urine Bilirubin (NEG) NEGATIVE Urine Urobilinogen (NEG mg/dL) NEGATIVE Ur Leukocyte Esterase (NEG) NEG Urine RBC (NONE SEEN #/hpf) 0-2 Urine WBC (NONE SEEN #/hpf) 0-2 Ur Epithelial Cells (RARE - FEW #/HPF) RARE Urine Bacteria (RARE - FEW /HPF) RARE Urine HCG, Qual NEGATIVE Recent Impressions: ULTRASOUND - DUP AB/PEL/SC/LTD 06/24 2130 Report Impression - Status: SIGNED Entered: 06/24/20192217 IMPRESSION: Normal pelvic ultrasound. SL: SG-H Impression By: Nicole Galindo MD ULTRASOUND - US TRANSVAGINAL W/PELVIS 06/24 2130 Report Impression - Status: SIGNED Entered: 06/24/20192217 IMPRESSION: Normal pelvic ultrasound. SL: SG-H Impression By: Nicole Galindo MD ULTRASOUND - US PELVIS COMPLETE 06/24 2130 Report Impression - Status: SIGNED Entered: 06/24/20192217 IMPRESSION: Normal pelvic ultrasound. SL: SG-H Impression By: Nicole Galindo MD Re-Evaluation MDM ED Course Medication(s) Ordered Medication(s) Ordered: Central Nervous System Agents Sig/Ney Start time Last Medication Dose Route Stop Time Status Admin Morphine Sulfate 4 MG X1ED STA 06/24 2102 DCr 1 08/24 IV 06/24 Gastrointestinal Drugs Sig/Ney Start time Last Medication Dose Route Stop Time Status Admin Ondansetron HCl 4 MG ONCE ONE 06/24 2115 DC IV 06/24 Patient Discharge Departure Vital Signs/Condition Vital Signs First Documented: Result Date Time Pulse Ox 100 06/24 2045 B/P 146/85 06/24 2045 B/P Mean 105 06/24 2045 O2 Delivery Room air 06/24 2045 Temp 36.6 06/24 2045 Pulse 83 06/24 2045 Resp 16 06/24 2045 Last Documented: Result Date Time Pulse Ox 100 06/24 2255 B/P 124/76 06/24 2255 B/P Mean 92 06/24 2255 Pulse 72 06/24 2255 Resp 16 06/24 2255 O2 Delivery Room air 06/24 2045 Temp 36.6 06/24 2045 All vital signs available at the time of this en try have been reviewed. Condition Stable Clinical Impression Clinical Impression Primary Impression: Follicular cyst of ovary Time of Impression 2240 Disposition Decision Discharge )( Discharged to Home Yes )( Time 2240 )( Date 06/24/19 at 0814 RPT #:[id number] END OF REPORT 2019-04-07 09:34:00-00:00 [id number] [place] [address] PATIENT NAME: LUDWIG MONTANEZ ADMIT DATE: 04/05/19 ACCOUNT NO: [id number] ROOM NO: Y.510 AGE: 19 REPORT TYPE: DISCHARGE SUMMARY REPORT SEX: F ADMITTING PHYSICIAN:Anibal Cruz MD ATTENDING PHYSICIAN:Anibal Cruz MD ADMISSION DATE: 04/05/2019 DISCHARGE DATE: 04/07/2019 ATTENDING PHYSICIAN: Anibal Cruz MD [facility] HOSPITAL SERVICE: Orthopedic surgery. REASON FOR HOSPITALIZATION: Right knee infection . HISTORY OF PRESENT ILLNESS: The patient is a 19- year-old female with progressive right knee pain and mechanical symptoms with rash, hives and fever, who presented to [facility] by transfer fr om an outside facility. She had undergone deep implant removal. Recently, cox monett is having persistent pain. She presented for infection evaluation. PAST MEDICAL HISTORY: Endometriosis, right knee patellar instability. PAST SURGICAL HISTORY: Right knee tibial tubercl e osteotomy with deep implant removal. ALLERGIES: PENICILLINS, SULFAMETHOXAZOLE, TRIMET HOPRIM, VANCOMYCIN. SOCIAL HISTORY: No alcohol or tobacco use. FAMILY HISTORY: Noncontributory. HOSPITAL COURSE: Initial vital signs were within normal limits with no fever. Internal medicine consultation and infectious di sease consultation were obtained. Infectious disease consultation demons trated concern for a dermatologic and/or autoimmune condition. The kwasi tiemariana was not started on IV antibiotics. MRI obtained while in hospital demo nstrated no evidence of osteomyelitis. She remained afebrile during her hospital course. Aspiration demonstrated a clear fluid with no evidence of i nfection. On 04/07/2019, her pain is controlled with oral pain medica tion, tolerating diet. She was cleared by physical therapy. She is to be weightbearing as tolerated, taking anti-inflammatories as needed. Follow up with Dr Jaycee Wagner, her primary provider. She also requires rheumatologic consul tation as an outpatient, consultation as an outpatient, Dr. Deb Mendes. Dictated By: Anibal Cruz MD WT: DS:RAJI/MARLENY/JORGE L PATIENT NAME: LUDWIG MONTANEZ 50 Conf#: [id number]/DID#: [id number] Authenticated and Edited by Anibal jaeger MD On 04/08/19 7:16:40 AM at 0719 PATIENT NAME: LUDWIG MONTANEZ 50 2019-04-07 09:27:00-00:00 [facility] ([facility]) Clinical Note REPORT#:[id number] REPORT STATUS: Signed DATE:04/07/19 TIME: 926 PATIENT: LUDWIG MONTANEZ UNIT #: [id number] ROOM/BED: [address] : 98 AGE: 19 SEX: F ATTEND: Poncho Cruz MD ADM AUTHOR: Pipo Hare MD * ALL edits or amendments must be made on the el ectronic/computer document * Clinical Note Note: [facility] Pipo lam M.D. (cell text [phone]) Assessment/Plan 1.) Right Knee pain rash-hives suspected tibial osteomyeltis .acute pain control. Treating itch with benadryl. TO go home and followup with Dr. Mendes as outpatinet. * OK for DISCHARGE per Internal Medicine. Prior Events/Overnight: Uneventful. Chief Complaint: Knee pain Objective Vital Signs Date Temp Pulse Resp B/P B/P Mean Pulse Ox FiO2 04/06-04/07 96.8-97.9 66-80 15-18 105-124/65-81 78.4-95.4 94-99 Gen: Alert, oriented, in mild discomfort at rest Neck: No Masses, No Thyromegaly- CV: Regular Rate Rhythm / Edema- no significant Resp: Clear To Ascultation / Normal Respiratory Effort ABD: NonTender / NonDistended MS/Skin: No Cyanosis / No nodules / nl capillary refill of toes. Other: No new skin lesions. Labs/X-ray: Laboratory Tests: 04/06 1010 Chemistry BUN (7 - 18 mg/dL) 7 Creatinine (0.55 - 1.30 mg/dL) 0.70 Glomerular Filtr Rate (>60) 105.6 Recent Impressions: MAGNETIC [facility]ON[facility] IMAGING - MRI LW JNT W WO CON T RT 04/06 1012 Report Impression - Status: SIGNED Entered: 04/06/2019 1428 IMPRESSION: Postoperative changes involving the proximal tib ia with nonspecific edema and a small amount of fluid anterior to th e tibial tuberosity. This is nonspecific and may be postoperative. Ce llulitis is not excluded. No MR findings of osteomyelitis visual ized. Impression By: Riana - Jerel Rodriguez M.D. at 0922 RPT #:[id number] END OF REPORT 2019-04-07 09:24:00-00:00 [facility]) Clinical Note REPORT#:[id number] REPORT STATUS: Signed DATE:04/07/19 TIME: 923 PATIENT: LUDWIG MONTANEZ UNIT #: [id number] ROOM/BED: [address] : 98 AGE: 19 SEX: F ATTEND: Poncho Cruz MD ADM AUTHOR: Anibal Cruz * ALL edits or amendments must be made on the [email or web address]/computer document * Clinical Note Note: C/O PAIN WHILE AMBULATING AF VSS MRI SHOWS NO EVIDENCE OF OSTEOMYELITIS R KNEE/LEG PAIN APPRECIATE CONSULTANTS' ASSISTANCE--DR. MENDES [place] LL SEE HER AN OUTPATIENT DVT PROPH: AMBULATE, MECHANICAL PT ABLE: WBAT WITH ASSISTIVE DEVICE NSAIDS FOR PAIN CONTROL D/C HOME FINAL DX: RIGHT KNEE PAIN, EFFUSION SIGNIFICANT FINDINGS: ABOVE TREATMENT RENDERED: ABOVE CONDITION: STABLE F/U 5-7 DAYS DISPOSITION: HOME at 0926 [facility] #:[id number] END OF REPORT 2019-04-06 17:23:00-00:00 [id number] [place] [address] PATIENT NAME: LUDWIG MONTANEZ ADMIT DATE: 04/05/19 ACCOUNT NO: [id number] ROOM NO: Y.510 AGE: 19 REPORT TYPE: CONSULTATION REPORT SEX: F ADMITTING PHYSICIAN:Anibal Crzu MD ATTENDING PHYSICIAN:Anibal Cruz MD CONSULTATION DATE: 04/06/2019 CONSULTING PHYSICIAN: Deb Mendes MD RHEUMATOLOGY CONSULTATION HISTORY OF PRESENT ILLNESS: This is a 19-year-ol d white female who has a history of knee pain and low back discomfort. Sh gennaro had bilateral tibial osteoplasty in 2013. She states she has never re ally felt like she has been pain-free, but the right knee has been persisten tly problematic. By February 02, she had the hardware removed. The patien t ended up with three hospitalizations with multiple cultures, which have so far been n egative. She states she had a rash that developed around her knees the first t igor in February. She has been having diffuse itching for the last 6 months and takes Benadryl to try to control it. She denies using heat or cold on her knees or any sort of topicals. Pictures of the rash show that it is slightly i ndurated with erythema. Later it faded with the last episo de, it is left ecchymosis at the site that was most erythematous, but the induration is gone. The pa etelvina has a longstanding history of low back pain, has been told she has mild scoliosis. The mother who is present during this interview has a diagnosis of seronegative ankylosing spondylitis. The patient states that she has use d heating pads on her back. She has discomfort, particularly when she is sta nding or prolonged sitting in her low back. She does have a history of irritab le bowel and her last colonoscopy was in 2015. PAST MEDICAL HISTORY: Significant for migraine. PAST SURGICAL HISTORY: Significant for the osteo plasty on bilateral knees in 2013. She has had her tonsils out. PHYSICAL EXAMINATION: EXTREMITIES: There is no april dence of tenosynovitis of her hands, wrist, elbows, ankles or toes. There is really no inflammation in the left knee and minimal fullness to the right knee. SKIN: The patient has scatte red ecchymosis, particularly around the knee, which correlate with the picture that she showed where the intense erythema was. The patient had an MRI of her knee, which is not showing any osteomyelitis at this time. She states the last antibiotics she r eceived were March 24. ASSESSMENT AND PLAN: This is a 19-year-old white female who has been having persistent right knee pain. There is a history o f osteoplasties in 2013, but PATIENT NAME: LUDWIG MONTANEZ 50 she states she has never been pain-free in the r ight knee. She also has a longstanding history of low back pain. The pain is worse with prolonged standing or sitting. It does not wake her up. Juan burdick has evidence of mottling related to heating pad use o jame her low back. At this point, I think we need to consider one of the seronegative spondyloarthrop athies particularly since her mother carries a diagnosis o f ankylosing spondylitis and the patient herself has irritable bowel. It is not as bad as it used to be, but she has had 2 colonoscopies with the last being in about 2016. Because of the urticarial type rash, which I think is extremely unusual. The fa ct that it bruises suggests a vasculitic component. I would like for t he patient to go gluten-free. Also, we will give her a prednisone t aper starting at 20 mg and decreasing by 5 mg every 4 days. I would like to see her back in 2 weeks. We will wait to give her the prescription for the prednisone until she is dis charged tomorrow just to make sure the last of the cultures continued to be ne gative. Also, we will try to obtain x-rays of her low james k and SI joints, but I would like to follow up with MRI of the lumbar spine. We are looking for sacr oiliitis. We will also be checking the serologies to look for an autoimmun e cause for her knee and possibly low back discomfort. Dictated By: Deb Mendes MD WT: CON:RAJI/MARY/JORGE L Conf#: [id number]/DID#: [id number] Authenticated by Deb Mendes MD On 04/15/2019 03:36:35 PM at 1536 PATIENT NAME: LUDWIG MONTANEZ 50 2019-04-06 12:48:00-00:00 [facility] ([facility]) Clinical Note REPORT#:[id number] REPORT STATUS: Signed DATE:04/06/19 TIME: 1248 PATIENT: LUDWIG MONTANEZ UNIT #: [id number] ROOM/BED: [address] : 98 AGE: 19 SEX: F ATTEND: Maurice Hare MD ADM AUTHOR: Pipo Hare MD * ALL edits or amendments must be made on the el ectronic/computer document * Clinical Note Note: [facility] Pipo lam M.D. (cell text [phone]) Assessment/Plan 1.) Right Knee pain rash-hives suspected tibial osteomyeltis .acute pain control. Appreciate input of Dr. Alvaro Cruz. MRI does not show typical signs of osteomyelitis per radiologist Dr. Mendes . Spoke with Dr. William Cruz who will assume attending status on patient. Patient bothered by itching and continued right knee pain (medial more than late ral) especially with weight bearing. * Dr. Cruz to assume attending. Prior Events/Overnight: Uneventful. Chief Complaint: No significant complaints. Objective Vital Signs Date Temp Pulse Resp B/P B/P Mean Pulse Ox FiO2 04/05-04/06 97.3-97.9 62-92 16-18 104-135/55-81 73-96.1 97-99 Gen: Alert, oriented, in mild discomfort Neck: No Masses, No Thyromegaly- CV: Regular Rate Rhythm / Edema- no significant Resp: Clear To Ascultation / Normal Respiratory Effort ABD: NonTender / NonDistended MS/Skin: No Cyanosis / No nodules / nl capillary refill of toes. Other: No new skin lesions. Labs/X-ray: Laboratory Tests: 04/06 1010 Chemistry BUN (7 - 18 mg/dL) 7 Creatinine (0.55 - 1.30 mg/dL) 0.70 Glomerular Filtr Rate (>60) 105.6 Pipo Real M.D. at 1318 RPT #:[id number] END OF REPORT 2019-04-06 07:23:00-00:00 [facility]) Clinical Note REPORT#:[id number] REPORT STATUS: Signed DATE:04/06/19 TIME: 722 PATIENT: LUDWIG MONTANEZ UNIT #: [id number] ROOM/BED: [address] : 98 AGE: 19 SEX: F ATTEND: Maurice Hare MD ADM AUTHOR: Anibal Cruz * ALL edits or amendments must be made on the el [employer]/computer document * Clinical Note Note: ORTHO SPORTS C/O PAIN AF VSS R LE: NO EFFUSION, DECREASED ROM; SLIGHT EXTENSO R LAG WITH SLR CRP < 0.2 R KNEE PAIN, S/P HWR APPRECIATE CONSULTANTS' ASSISTANCE MRI WITH AND WITHOUT IV CONTRAST TO EVALUATE FOR OSTEOMYELITIS CONSULT RHEUM FOR POSSIBLE AUTOIMMUNE CONDITION DVT PROPH--AMBULATE at 0725 RPT #:[id number] END OF REPORT 2019-04-05 14:43:00-00:00 [facility]) Infect Disease Consult Note REPORT#:[id number] REPORT STATUS: Signed DATE:04/05/19 TIME: 1442 PATIENT: LUDWIG MONTANEZ UNIT #: [id number] ROOM/BED: [address] : 98 AGE: 19 SEX: F ATTEND: Maurice Hare MD ADM AUTHOR: Yvonne John MD * ALL edits or amendments must be made on the [email or web address]/computer document * History of Present Illness Requesting Clinician: Dr Layton Reason for consult: Possible cellulitis HPI: a 19 y/o female pt s/p bilat eral tibia osteoplsty in 2013. Pt did well but over the last few months started with increas ing pain. The HW was removed on 02/02/19 at [facility]. Did well for one month then noted what appeared to be a blister just below the right knee. It was lanced (cxs ne gative) and MRI done c/o osteomyelitis. Pt started on IV Vanco but becasue of a reaction this was changed to IV Dapto. On this regimen one week later the blister reoccured and pt had it relanced, again cxs negative . At this time also noted hive like lesions on both lower extremities which slow ly resolved. After consultation with Dr Wagner pts abx were discontinued in anticipation of I D on Apr 13. Five days ago the hives retuned this time on h er arms, face and back then spread to both legs shorty the right prompting pts visi t to the ED yesterday. From there transferred to [facility] for further management. ID consulted to r/o poss ible cellulitis. History - Adult longitudinal Additional medical history: meningorrhea Smoking status for patients 13 years old or olde r: Never Smoker Allergies: Coded Allergies: Penicillins (Severe, ANAPHYLAXIS, RASH 03/26/19) sulfamethoxazole (From BACTRIM) (Intermediate, H ROSMERY 03/26/19) trimethoprim (From BACTRIM) (Intermediate, HIVES 03/26/19) vancomycin (Intermediate, HIVES 03/26/19) Review of Systems Constitutional: Denies: chills, fever. Objective General VS/I O: Last Documented: Result Date Time Pulse Ox 98 04/05 1201 B/P 118/73 04/05 1201 B/P Mean 86 04/05 1201 O2 Delivery Room air 04/05 1201 Temp 36.9 04/05 1201 Pulse 80 04/05 1201 Resp 18 04/05 1201 Vital Signs Date Temp Pulse Resp B/P B/P Mean Pulse Ox FiO2 04/05 36.9-37.2 67-98 16-18 109-127/69-75 82.4- 92.4 98-99 24 hour I O ending at 0700: 04/05 0700 04/04 1900 Intake Total 20.00 Output Total Balance 20.00 Intake, IV 20.00 Number Voids 1 Patient Weight Weight (lb): 136 Weight (oz): 10.99 Weight (kg): 62.000 Physical Exam General appearance: alert, awake, oriented Cardiovascular: normal heart sounds, regular rat e rhythm Respiratory: clear to auscultation Abdomen: non-tender, soft Skin: large elevated edematous plaque midback c/ w urticaria purple hyperpigmented areas with some central clearing both knees the R> L Treatment Prophylaxis Treatment Prophylaxis Lines: peripheral Diagnosis, Assessment Plan Problem List/A P: 1. Urticaria Free Text DxA P Notes Free text DxA P notes: The lesion midback is clearl y urticarial. I am unclear what the purple areas on her legs around the knees wi th central clearing are, possibly residual from the urticaria in which case I would be very concerne d about something autoimmune. Definitely a reactive process and not infectious cellulitis. No abx at this time. May need to see Derm for biopsy. Electronically Signed by Yvonne John MD on at 1457 RPT #:[id number] END OF REPORT 2019-04-05 11:57:00-00:00 [id number] [facility] [address] [place] [id number] PATIENT NAME: LUDWIG MONTANEZ ADMIT DATE: 04/05/19 ACCOUNT NO: [id number] ROOM NO: [facility] AGE: 19 REPORT TYPE: CONSULTATION REPORT SEX: F ADMITTING PHYSICIAN: ATTENDING PHYSICIAN:Pipo Hare MD CONSULTATION DATE: CONSULTING PHYSICIAN: Barbara Pleitez MD CHIEF COMPLAINT: Right knee pain. HISTORY OF PRESENT ILLNESS: The patient is a 19-year-old female presenting with right knee pain, possible cellulitis. The patien t has a history of a tibial tubercle osteotomy procedure performed b nino Wagner in 2013. The patient had developed symptomatic and pa inful right tibial hardware, which was removed at [facility] in January of 2019. Approximately a week or so postop, she presented to [facility] with redness , pain, blister of the distal knee and was diagnosed with suspected osteomyeli tis and was placed on IV antibiotics (initially vancomycin, but switched to daptomycin due to Hives). She states no definite organ ism was identified. Her daptomycin was discontinued on 03/26/[address] Wagner, and she has been s cheduled for I and D of the right tibia with Dr. Wagner for 04/13/2019. The plan was for the patient to be off antibiotics for a period of time in order to improve the potential of growing an organism, which IV antibiotics could be used to tailor treatment towards. Yesterday, the patient began having fevers, whic h were measured to 101 degrees while at home. She p resented to the emergency facility, was noted to be afebrile there, but requested transfer to [facility] further care. Here at our facility, the patient has been febrile with temp eratures below 99 degrees Fahrenheit. She continues to have right knee nina n. Pain in the knee is worse to palpation and is focused to the tibia l tubercle as well as the anteromedial knee. She has got a significant area of erythema at the anterior knee. She states that her pain is rate d at 10/10 in severity and is mostly focused to the knee and the tibial tubercle. She denies pain wi th range of motion passive or active, but states that she feels discomfort and tension whenever those movements are performed. She has no other acute complaints. PAST MEDICAL HISTORY: Unremarkable. PAST SURGICAL HISTORY: Right tibial tubercle ost eotomy procedure. SOCIAL HISTORY: Tobacco none. Alcohol none. Drug s, none. FAMILY HISTORY: No significant history of muscul oskeletal infections. REVIEW OF SYSTEMS: All systems reviewed and nega tive with the exception of: PATIENT NAME: LUDWIG MONTANEZ 50 CONSTITUTIONAL: Positive fever. No weight loss. PHYSICAL EXAMINATION: GENERAL: No acute distress. HEENT: Normocephalic, atraumatic. EYES: Extraocular motions intact. EARS: No external deformities. Nose patent. Mout h: Moist mucous membranes. NECK: Supple. Full range of motion. RESPIRATORY: Unlabored breathing. CARDIOVASCULAR: Regular rate and rhythm. ABDOMEN: Soft, nontender, and nondistended. MUSCULOSKELETAL: Positive for right knee pain. SKIN: Erythema throughout the right knee. Modera te edema in the knee. Negative for effusion. VASCULAR: Positive DP. NEUROLOGIC: Grossly intact. IMAGING: No acute osseous abnormalities. LABORATORY DATA: CRP less than 0.2. Neutrophil p ercentage 63%. WBCs 11. ASSESSMENT: This is a 19-year-old female who is presenting with a history of right knee pain, which is concerning for tibial osteomyelitis, cellulitis, and possible septic arthritis. The patient had her k nee aspirated by Dr. Rojas Trevizo this morning and minimal fluid was obtained. I also attempted repeat aspiration in the knee and no fluid was obtained from the attempt. Clinical history, imaging and examinatio n appears to be consistent with tibial osteomyelitis as well as cellulitis vs uritcaria of the anterior knee skin, with low concern for septic arthritis of the int ra-articular space. As the patient has painless range of motion of the knee , she does not have an effusion and identifies most of her pain to be a round the area of redness as well as at the tibial tubercle where the presume d osteomyelitis is present. PLAN: We will keep the patient in-house to amadeo jaeger a consultation from one of the sports medicine surgeons. The plan would be either to proceed with irrigation and debridement this week versus guy ting the patient as an outpatient according to Dr Deirdre mesa. She ma y also benefit from a repeat MRI. It is possible that the patient can be treated a s an outpatient as she has not had an objective evidence of fever in [facility] last night versus in the hospital with us. Ideally , we would keep her off antibiotics to better help with cultures obtained at the time of surgery. However, if she does develop fever, then the plan would be to p roceed with an irrigation and debridement sooner rather than later. I discusse d the treatment plan with the patient and her mother, and all questions were a nswered. I also discussed the treatment plan with the [facility] physician taking care of the patient. Dictated By: Barbara Pleitez MD WT: CON:YLEORA/MART/NTS Conf#: [id number]/DID#: [id number] PATIENT NAME: LUDWIG MONTANEZ 252 Authenticated and Edited by Barbara cole MD On 04/06/19 8:08:52 AM at 0811 PATIENT NAME: LUDWIG MONTANEZ 50 2019-04-05 10:10:00-00:00 [facility] ([facility]) Clinical Note REPORT#:[id number] REPORT STATUS: Signed DATE:04/05/19 TIME: 1010 PATIENT: LUDWIG MONTANEZ UNIT #: [id number] ROOM/BED: [address] : 98 AGE: 19 SEX: F ATTEND: Maurice Hare MD ADM AUTHOR: Pipo Hare MD * ALL edits or amendments must be made on the [email or web address]/computer document * Clinical Note Note: [facility] Pipo lam MD (cell text [phone]) Internal Medicine Consult H P at request of : Dr Joseline Pleitez Chief Complaint: Fever, Right knee discomfort, rash HPI: .19yo W transferred early this Am from [facility] ED for knee pain associated with fever and hi ves rash. Ms. Montanez relates having corrective right tibial osteoplasty by Dr. Wagner around 2014 fo r a growth deformity. She had symptomatic(painful) right tibial hardware remov ed at [facility] in January 2019. Approximately a week or so later she presented to [facility] with redness pain, blister of right dis johnathan knee, was diagnosed with suspected osteomyelitis and was placed on IV abx (initially vancomycin but switched to daptomycin due to hives). She states no definitie organism was identified. Her daptomycin was discontinued abou t a week ago and she has been scheduled for I D of right tibia with Dr. Ezra oneill for 04/13/19. She developed hives involving bilateral legs, b ack and neck over the last 72 hours. She developed fever to 101 yesterday PM a nd large red confluent hives centered around right>left knees yesterd ay PM. She was seen at [facility] ED at advice of her Infectious disease specialist. WBC 11.9 with normal diff, complete metabolic panel normal. Xray of right knee appeared normal other than nonspecific soft tissue edema. She relates hives almost completely resolved after benadryl. Comorbidities: see below. PmHx: . endometrosis, presumed osteomyelitis of right proximal tibia ALLERGY: Allergies: Penicillins (Coded, Severe, ANAPHYLAXIS, RASH, 0 03/26/19) sulfamethoxazole (From BACTRIM) (Coded, Intermed iate, HIVES, 03/26/19) trimethoprim (From BACTRIM) (Coded, Intermediate , HIVES, 03/26/19) vancomycin (Coded, Intermediate, HIVES, 03/26/19 ) Home Medications: Home Medications: medroxyPROGESTERone (DEPO-PROVERA) 150 MG IM Q90 D DAPTOmycin (CUBICIN) 500 MG IV Q24H IBUPROFEN (MOTRIN) 800 MG PO Q6H PRN PRN PAIN SgHx: . right tibial osteoplasty SHx: Tob: none FHx: .No significant hx of DVT/PE . Alcohol: none Drugs: none Lives: with ROS: [X] all systems reviewed and negative excep t- [X Con: . +Fever/ No Wt loss [ ] CV: cpain/edema . [ ] Pul: . cough/SOB [ ] GI: hematemesis/diarrhe a [ ] : . dysuria or hematuria [X] MS: knee pain [ ] Neuro: . headache/loss sensation [ ] Heme: . adenopathy/Ecchymosis Vitals: Vital Signs Date Temp Pulse Resp B/P B/P Mean Pulse Ox FiO2 04/05 98.8-99.0 67-98 16-18 109-127/69-75 82.4- 92.4 99 Gen: Alert, in mild discomfort, nl nutrition. EYE: Nl lids conjunctiva. ENT: Nl ears Nose, nl lips,. Neck: Supple, nl thyroid, No masses. CV: Regular Rate Rhythm, no heave or significan t murmur. Edema- none Feet toes normal temperature. RESP: Clear to Auscultation, normal Respiratory effort. ABD: Soft, NonDistended,. LYM: No significant cervical Lymphadenopathy. MS: No Clubbing, cyanosis, flat red-brown skin l esions Right knee>>left, some with target clearing. NEURO: Nonfocal, grossly normal sensation of LE, +Ankle DF/PF PSY: Normal insight, Normal mood, oriented, . Preop Labs(): Microbiology: Date/Time Procedure - Status Source Growth 04/05 958 Acid Fast Bacilli Smear - COLB JOINT FLD 04/05 958 Acid Fast Bacilli Culture - COLB JOINT FLD 04/05 958 Joint Fluid Culture - COLB ASPIRATE 04/05 958 Anaerobic Culture - COLB ASPIRATE 04/05 958 Gram Stain - COLB ASPIRATE 04/05 0958 Gram Stain - COLB JOINT FLD 04/05 0325 MRSA Screen - COLB NASAL (medium to high risk of complications or morbidi ty) (major surgery) (IV sedative, meds) Assessment Plan 1.) Right Knee pain rash-hives suspected tibial osteomyeltis .acute pain control. Dr. Pleitez to see. Minimal j oint fluid aspirated by Dr. Trevizo. Pipo Real M.D. Thanks! at 1053 [facility] #:[id number] END OF REPORT 2019-04-05 09:50:00-00:00 [facility] ([facility]) Clinical Note REPORT#:[id number] REPORT STATUS: Signed DATE:04/05/19 TIME: 949 PATIENT: LUDWIG MONTANEZ UNIT #: [id number] ROOM/BED: [address] : 98 AGE: 19 SEX: F ATTEND: Maurice Hare MD ADM AUTHOR: Rojas Trevizo MD * ALL edits or amendments must be made on the el [employer]/computer document * Clinical Note Note: Asked by Dr. Pleitez to see pt for arthrocente sis of R knee. R knee w/mild edema, erythema, +/- effusion. Procedure: Betadine prep w/ swabsticks x3 Local anesthesia w/ 1% Lidocaine w/epi Initial aspiration using 18g spinal needle retur burton 1-2cc clear fluid Repeat aspiration returned minimal blood-tinged fluid Band-aid applied Volume insufficient for cell count; sent for gram stain, aerobic/anaerobic/AFB C S Pt tolerated procedure well. No complications. at 0958 RPT #:[id number] END OF REPORT
[2023-01-27] MEDS ORDERED: NA CHLORIDE 0.9% 1,000 ML ONE (19:36)
[2023-01-27 19:39] LABS: Absolute Lymphocytes (CBC) 2.1 K/uL (0.7-4.9); Hematocrit 36.6 % (36.0-45.0); Lymphocytes % 26.5 % (15.3-44.8); MCV 89.7 fL (80-100); MPV 8.5 fL (7.6-11.3); RBC Red Blood Cell Count 4.08 M/uL (3.86-4.86)
[2023-01-27 19:40] LABS: Specific Gravity 1.012 (1.005-1.030); Urine Bacteria None Seen /HPF (<20); Urine Bilirubin NEGATIVE (Negative); Urine Blood Negative (Negative); Urine Clarity Clear (Clear); Urine Color Colorless (Yellow); Urine Glucose NEGATIVE (Negative); Urine Mucus Slight /HPF (None Seen); Urine Protein NEGATIVE (Negative); Urine RBC <5 /HPF (None Seen); Urine Urobilinogen Normal (Normal)
[2023-01-27 20:10] LABS: Albumin 3.3 g/dL (3.4-5.0); Bilirubin Total 0.2 mg/dL (0.2-1.0); Potassium 3.4 mEq/L (3.5-5.1); Protein, Total 7.2 g/dL (6.4-8.2)
[2023-01-27] MEDS ORDERED: ACETAMINOPHEN 325 MG TABLET ONE (20:52)
[2023-01-27] MEDS ORDERED: PROMETHAZINE 25 MG TABLET ONE (20:52)
--- NOTE | 2023-01-27 21:14 | RAD REPORT ---
EXAM DESCRIPTION: US - OB Limited - 01/27/2023 8:38 pm CLINICAL HISTORY: . Abdominal pain COMPARISON: November 2022 FINDINGS: Single live intrauterine in transverse presentation. Amniotic fluid normal. Cardiac activity 142 beats per minute. The placenta is posterior. No subchorionic/retroplacental bleed. Cervix 4 centimeters. It is closed. Femur length 1.2 centimeters 13 weeks 3 days The right and left adnexal unremarkable IMPRESSION: Single live intrauterine in transverse presentation The estimated gestational age 13 weeks 2 days HECTOR 08/02/2023 If a survey is desired it should be performed in approximately 5 weeks
--- NOTE | 2023-01-27 21:52 | ER ---
Nurse's Notes [facility] Name: Arianne Montanez Age: 22 yrs Sex: Female : 2000 Arrival Date: 01/27/2023 Time: 18:06 Bed 15 Private MD: Diagnosis: Lower abdominal pain, unspecified;13 weeks gestation of Presentation: 01/27 18:35 Chief complaint: Patient states: had gender reveal, was outside a lot yesterday, ko1 started about 830 last night with cramping in lower abd. Called OB hotline and they stated to come here. Coronavirus screen: At this time, the client does not indicate any symptoms associated with coronavirus-19. Ebola Screen: No symptoms or risks identified at this time. Initial Sepsis Screen: Does the patient meet any 2 criteria? No. Patient's initial sepsis screen is negative. Does the patient have a suspected source of infection? No. Patient's initial sepsis screen is negative. Risk Assessment: Do you want to hurt yourself or someone else? Patient reports no desire to harm self or others. Onset of symptoms was January 26, 2023 at 20:30. 18:35 Method Of Arrival: Ambulatory ko1 18:35 Acuity: HENRI 3 ko1 Triage Assessment: 18:38 General: Appears in no apparent distress. uncomfortable, Behavior is calm, cooperative, ko1 appropriate for age. Pain: Complains of pain in right lower quadrant and left lower quadrant. GI: Reports nausea, vomiting. LEAD SPRINKLER: 19:47 LMP N/A - mb9 20:16 1, Verified snw Historical: - Allergies: 18:38 PENICILLINS; ko1 18:38 Prednisone; ko1 18:38 Sulfa (Sulfonamide Antibiotics); ko1 18:38 Tylenol-Codeine #3; ko1 18:38 Vancomycin; ko1 - Home Meds: 18:38 Vitamin Oral tab 1 tab once daily [Active]; ko1 - PMHx: 18:38 Depression/Anxiety; Migraines; ko1 - Immunization history:: Adult Immunizations up to date. - Social history:: Smoking status: Patient denies any tobacco usage or history of. Screenin:46 [facility] ED Fall Risk Assessment (Adult) History of falling in the last 3 months, mb9 including since admission No falls in past 3 months (0 pts) Confusion or Disorientation No (0 pts) Intoxicated or Sedated No (0 pts) Impaired Gait No (0 pts) Mobility Assist Device Used No (0 pt) Altered Elimination No (0 pt) Score/Fall Risk Level 0 - 2 = Low Risk Oriented to surroundings, Maintained a safe environment, Educated pt \T\ family on fall prevention, incl call for assistance when getting out of bed. Abuse screen: Denies threats or abuse. Nutritional screening: No deficits noted. Tuberculosis screening: No symptoms or risk factors identified. Assessment: 19:45 General: Appears in no apparent distress. Pain: Complains of pain in abdomen Pain mb9 radiates to left lower quadrant and right lower quadrant. Neuro: Dempsey Agitation-Sedation Scale (RASS): 0 - Alert and Calm Level of Consciousness is awake, alert, obeys commands, Oriented to person, place, time, situation, Appropriate for age. Cardiovascular: Patient's skin is warm and dry. Respiratory: Airway is patent Respiratory effort is even, unlabored, Respiratory pattern is regular, symmetrical. GI: Abdomen is round non-distended, Bowel sounds present X 4 quads. Abd is soft and non tender X 4 quads. : Denies burning with urination, pain vaginal bleeding. Derm: Skin is pink, warm \T\ dry. Musculoskeletal: Range of motion: intact in all extremities. 22:16 Reassessment: Patient and/or family updated on plan of care and expected duration. Pain mb9 level reassessed. Patient is alert, oriented x 3, equal unlabored respirations, skin warm/dry/pink. Patient states feeling better. Patient states symptoms have improved. Vital Signs: 18:35 BP 139 / 85; Pulse 76; Resp 16; Temp 98.2; Pulse Ox 100% ; Weight 79.83 kg; Height 5 ko1 ft. 7 in. ; 19:47 BP 116 / 80; Pulse 74; Resp 16; Pulse Ox 98% on R/A; mb9 22:15 BP 120 / 84; Pulse 78; Resp 16; Pulse Ox 100% on R/A; mb9 18:35 Body Mass Index 27.57 (79.83 kg, 170.18 cm) ko1 ED Course: 18:08 Patient arrived in ED. rg4 18:26 Merari Leavitt FNP-C [facility]. snw 18:27 Juan Carlos Pedroza MD is Attending Physician. snw 18:38 Triage completed. ko1 18:38 Arm band placed on right wrist. Patient notified of wait time. ko1 19:05 Sofie Mcconnell, RN is Primary Nurse. mb9 19:27 Abo/rh Typing Sent. bc6 19:27 Quantitative Hcg Sent. bc6 19:27 Urine W/Microscopic (UAM) Sent. bc6 19:27 CMP Sent. bc6 19:27 CBC with Diff Sent. bc6 19:27 Inserted saline lock: 20 gauge in right antecubital area, using aseptic technique. bc6 19:46 Placed in gown. Bed in low position. Call light in reach. Side rails up X 1. Client mb9 placed on continuous cardiac and pulse oximetry monitoring. NIBP monitoring applied. 19:46 No provider procedures requiring assistance completed. mb9 20:39 US OB Limited In Process Unspecified. EDMS 22:08 IV discontinued, intact, bleeding controlled, No redness/swelling at site. Pressure mb9 dressing applied. Administered Medications: 19:30 Drug: NS 0.9% IV 1000 ml Route: IV; Rate: 1 bolus; Site: right antecubital; mb9 22:08 Follow up: Response: No adverse reaction; IV Status: Completed infusion mb9 20:54 Drug: Promethazine PO 25 mg Route: PO; mb9 22:07 Follow up: Response: No adverse reaction mb9 20:54 Drug: Acetaminophen PO 650 mg Route: PO; mb9 22:07 Follow up: Response: No adverse reaction mb9 Medication: 19:47 VIS not applicable for this client. mb9 Outcome: 21:52 Discharge ordered by . snw 22:08 Discharged to home ambulatory. mb9 22:08 Condition: stable 22:08 Discharge instructions given to patient, Instructed on discharge instructions, follow up and referral plans. Demonstrated understanding of instructions, follow-up care, medications, Prescriptions given X 1. 22:16 Patient left the ED. mb9 Signatures: Dispatcher [employer] EDMerari Hudson, SANITATION SUPERVISOR-C SANITATION SUPERVISOR-CsnKatia Benites rg4 Deena Romero RN RN ko1 Sofie Mcconnell, RN RN mb9 Riana Coffey bc6
--- NOTE | 2023-01-27 21:52 | EDPHYS ---
Physician Documentation [facility] Name: Arianne Montanez Age: 22 yrs Sex: Female : 2000 Arrival Date: 01/27/2023 Time: 18:06 Bed 15 Private MD: ED Physician Juan Carlos Pedroza HPI: 01/27 20:16 This 22 yrs old Female presents to ER via Ambulatory with complaints of Abdominal snw Cramping, 14 Wks . 20:16 The patient presents with lower abd cramping post being outdoors yesterday at her snw gender reveal (boy). No bleeding, no sensation of movement within this . Onset: The symptoms/episode began/occurred suddenly. Associated signs and symptoms: The patient has no apparent associated signs or symptoms. Severity of symptoms: At their worst the symptoms were mild. The patient has not experienced similar symptoms in the past. sees OB at [facility]. 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 - Social history:: Smoking status: Patient denies any tobacco usage or history of. ROS: 20:15 Constitutional: Negative for fever, chills, and weight loss, Eyes: Negative for injury, snw pain, redness, and discharge, ENT: Negative for injury, pain, and discharge, Neck: Negative for injury, pain, and swelling, Cardiovascular: Negative for chest pain, palpitations, and edema, Respiratory: Negative for shortness of breath, cough, wheezing, and pleuritic chest pain, Back: Negative for injury and pain, : Negative for injury, bleeding, discharge, and swelling, MS/Extremity: Negative for injury and deformity, Skin: Negative for injury, rash, and discoloration, Neuro: Negative for headache, weakness, numbness, tingling, and seizure, Psych: Negative for depression, anxiety, suicide ideation, homicidal ideation, and hallucinations. 20:15 Abdomen/GI: Positive for abdominal cramps, of the right lower quadrant and left lower quadrant. Exam: 20:15 Constitutional: This is a well developed, well nourished patient who is awake, alert, snw and in no acute distress. Head/Face: Normocephalic, atraumatic. Eyes: Pupils equal round and reactive to light, extra-ocular motions intact. Lids and lashes normal. Conjunctiva and sclera are non-icteric and not injected. Cornea within normal limits. Periorbital areas with no swelling, redness, or edema. ENT: Nares patent. No nasal discharge, no septal abnormalities noted. Tympanic membranes are normal and external auditory canals are clear. Oropharynx with no redness, swelling, or masses, exudates, or evidence of obstruction, uvula midline. Mucous membranes moist. Neck: Trachea midline, no thyromegaly or masses palpated, and no cervical lymphadenopathy. Supple, full range of motion without nuchal rigidity, or vertebral point tenderness. No Meningismus. Chest/axilla: Normal chest wall appearance and motion. Nontender with no deformity. No lesions are appreciated. Cardiovascular: Regular rate and rhythm with a normal S1 and S2. No gallops, murmurs, or rubs. Normal PMI, no JVD. No pulse deficits. Respiratory: Lungs have equal breath sounds bilaterally, clear to auscultation and percussion. No rales, rhonchi or wheezes noted. No increased work of breathing, no retractions or nasal flaring. Back: No spinal tenderness. No costovertebral tenderness. Full range of motion. Skin: Warm, dry with normal turgor. Normal color with no rashes, no lesions, and no evidence of cellulitis. MS/ Extremity: Pulses equal, no cyanosis. Neurovascular intact. Full, normal range of motion. Neuro: Awake and alert, GCS 15, oriented to person, place, time, and situation. Cranial nerves II-XII grossly intact. Motor strength 5/5 in all extremities. Sensory grossly intact. Cerebellar exam normal. Normal gait. Psych: Awake, alert, with orientation to person, place and time. Behavior, mood, and affect are within normal limits. 20:15 Abdomen/GI: Inspection: gravid appearance, is noted, Bowel sounds: normal, Palpation: soft, in all quadrants. Vital Signs: 18:35 BP 139 / 85; Pulse 76; Resp 16; Temp 98.2; Pulse Ox 100% ; Weight 79.83 kg; Height 5 ko1 ft. 7 in. ; 19:47 BP 116 / 80; Pulse 74; Resp 16; Pulse Ox 98% on R/A; mb9 22:15 BP 120 / 84; Pulse 78; Resp 16; Pulse Ox 100% on R/A; mb9 18:35 Body Mass Index 27.57 (79.83 kg, 170.18 cm) ko1 MDM: 18:51 Patient medically screened. snw 21:52 Differential diagnosis: kidney stone, ovarian cyst, urinary tract infection. Data snw reviewed: vital signs, nurses notes, lab test result(s), radiologic studies. I considered the following discharge prescriptions or medication management in the emergency department Medications were administered in the Emergency Department. See MAR. Counseling: I had a detailed discussion with the patient and/or guardian regarding: the historical points, exam findings, and any diagnostic results supporting the discharge/admit diagnosis, lab results, radiology results, the need for outpatient follow up, to return to the emergency department if symptoms worsen or persist or if there are any questions or concerns that arise at home. Special discussion: Based on the patient's Hx, exam, and Dx evaluation, there is no indication for emergent surgery or inpatient Tx. It is understood by the patient/guardian that if the Sx's persist or worsen they need to return immediately for re-evaluation. Based on the history and exam findings, there is no indication for further emergent testing or inpatient evaluation. I discussed with the patient/guardian the need to see the OB Gyne specialist for further evaluation of the symptoms. I discussed with the patient/guardian the need to see the primary care provider for further evaluation of the symptoms. 01/27 18:52 Order name: CBC with Diff; Complete Time: 19:53 snw 01/27 18:52 Order name: CMP; Complete Time: 20:13 snw 01/27 18:52 Order name: Urine W/Microscopic (UAM); Complete Time: 19:53 snw 01/27 18:52 Order name: Quantitative Hcg; Complete Time: 20:13 snw 01/27 18:52 Order name: Abo/rh Typing; Complete Time: 20:22 snw 01/27 20:13 Order name: US OB Limited; Complete Time: 21:15 snw Administered Medications: 19:30 Drug: NS 0.9% IV 1000 ml Route: IV; Rate: 1 bolus; Site: right antecubital; mb9 22:08 Follow up: Response: No adverse reaction; IV Status: Completed infusion mb9 20:54 Drug: Promethazine PO 25 mg Route: PO; mb9 22:07 Follow up: Response: No adverse reaction mb9 20:54 Drug: Acetaminophen PO 650 mg Route: PO; mb9 22:07 Follow up: Response: No adverse reaction mb9 Disposition: 01/28 13:11 Co-signature as Attending Physician, Juan Carlos Pedroza MD I agree with the assessment and kdr plan of care. Disposition Summary: 01/27/23 21:52 Discharge Ordered Location: Home snw Condition: Stable snw Diagnosis - Lower abdominal pain, unspecified snw - 13 weeks gestation of snw Followup: snw - With: Emergency Department - When: As needed - Reason: Worsening of condition Followup: snw - With: Private Physician - When: 2 - 3 days - Reason: Recheck today's complaints, Continuance of care, Re-evaluation by your physician Discharge Instructions: - Discharge Summary Sheet snw - Abdominal Pain During snw - Care snw Forms: - Medication Reconciliation Form snw - Thank You Letter snw - Antibiotic Education snw - Prescription Opioid Use snw - [email or web address] snw Prescriptions: - promethazine 25 mg Oral Tablet - take 1 tablet by ORAL route every 6 hours As needed; 20 tablet; Refills: 0, snw Product Selection Permitted Signatures: Dispatcher [employer] Juan Carlos Howard MD MD kdr Waters, Shelly, FNP-Kami BUILD AUTOMATION ENGINEER-Csnw Deena Romero RN RN ko1 Sofie Mcconnell RN RN mb9
[2023-01-27 22:46] VITALS: TEMP 98.2
[2023-01-27 22:48] VITALS: BP 120/84; O2SAT 100
== END 2023-01-27 22:16 | disposition home or self-care (01) ==
LOC: ER 18:06
DX: O26.892 Other specified pregnancy related conditions, second trimester (principal); R10.30 Lower abdominal pain, unspecified; Z3A.13 13 weeks gestation of pregnancy; Z88.0 Allergy status to penicillin; Z88.2 Allergy status to sulfonamides; Z88.3 Allergy status to other anti-infective agents; Z88.5 Allergy status to narcotic agent; Z88.6 Allergy status to analgesic agent; Z88.8 Allergy status to other drugs, medicaments and biological substances
CPT/HCPCS: 96361; 85025; 81001; 36415; 86900; 86901; 84702; 80053; 76815; 96360; 99284; Q0169; J7030